=== PATIENT | male | born 1965 | race Caucasian/White ===

== ENCOUNTER 2020-08-12 11:14 | Outpatient (REF) | payer OTHER, SELFPAY ==
[2020-08-12 14:40] LABS: Glucose Urine UA NEG (NEG); Leukocyte Esterase Urine NEG (NEG); Nitrite Urine NEG (NEG); PH 5.5 (5.0-8.0); Specific Gravity - Urine >= 1.030 (1.005-1.025); Urine Blood NEG (NEG); Urine Ketones NEG (NEG); Urine Protein NEG (NEG-TRACE)
[2020-08-12 14:51] LABS: Appearance Urine HAZY; Color Urine YELLOW
[2020-08-12 14:54] LABS: Alanine Aminotransferase 31 U/L (0-40); Albumin Level 4.5 g/dL (3.5-5.0); Alkaline Phosphatase 79 U/L (39-117); Anion Gap 15 (12-20); Aspartate Amino Transferase 26 U/L (5-37); Bilirubin Total 0.5 mg/dL (0.0-1.0); Blood Urea Nitrogen 15 mg/dL (9-16); Calcium 9.1 mg/dL (8.4-10.2); Carbon Dioxide 27 mmol/L (22-29); Chloride 99 mmol/L (96-108); Estimated Glomerular Filt Rate > 60; Glucose Random 91 mg/dL (60-115); Potassium 4.7 mmol/l (3.3-5.1); Sodium 136 mmol/L (135-145)
[2020-08-12 15:01] LABS: Prostate Specific Antigen Scr 0.39 ng/mL (<0.05-4.0)
== END 2020-08-12 11:15 | disposition home or self-care (01) ==
LOC: HO.10HDL 11:14
PROVIDERS: Visit Provider Internal Medicine
DX: K21.9 Gastro-esophageal reflux disease without esophagitis (principal); E78.00 Pure hypercholesterolemia, unspecified; R35.1 Nocturia
CPT/HCPCS: 80053; 81003; 84153

== ENCOUNTER 2021-01-11 08:12 | Outpatient (REF) | payer OTHER, SELFPAY ==
[2021-01-11 11:12] LABS: Cholesterol 336 mg/dL; HDL Cholesterol 41 mg/dL; LDL Cholesterol Calculated 224 mg/dl; Triglycerides 357 mg/dL
== END 2021-01-11 08:13 | disposition home or self-care (01) ==
LOC: HO.10HDL 08:12
PROVIDERS: Visit Provider Internal Medicine
DX: E78.00 Pure hypercholesterolemia, unspecified (principal)
CPT/HCPCS: 36415; 80061

== ENCOUNTER → 2021-03-08 14:44 | Outpatient (BNVA) | payer OTHER, SELFPAY | PROVIDERS: PCP Internal Medicine; Visit Provider Internal Medicine ==

== ENCOUNTER → 2021-05-11 15:08 | Outpatient (REF) | payer OTHER, SELFPAY | LOC: HO.SL 15:08 | PROVIDERS: PCP Internal Medicine; Visit Provider Internal Medicine | DX: Z13.89 Encounter for screening for other disorder (principal) ==

== ENCOUNTER → 2021-06-03 14:14 | Outpatient (REF) | payer OTHER, SELFPAY | LOC: HO.SL 14:14 | PROVIDERS: PCP Internal Medicine; Visit Provider Internal Medicine | DX: G47.33 Obstructive sleep apnea (adult) (pediatric) (principal); G47.19 Other hypersomnia; E66.01 Morbid (severe) obesity due to excess calories | CPT/HCPCS: 95806 ==

== ENCOUNTER 2021-10-18 09:39 | Outpatient (REF) | payer OTHER, SELFPAY ==
[2021-10-18 10:17] LABS: MANUAL DIFF FLAG NO
[2021-10-18 10:22] LABS: Basophils Percent Auto 0.3 % (0-2); Eosinophils Absolute Auto 0.1 X10*3/uL (0.0-0.4); Eosinophils Percent Auto 1.3 % (0-4); Hematocrit 43.6 % (42.0-52.0); Hemoglobin 14.5 g/dl (14.0-18.0); Imm Gran Abs Auto 0.04 X10*3/uL (0.00-0.03); Imm Gran Pct Auto 0.6 % (0.0-0.4); Lymphocytes Absolute Auto 1.1 X10*3/uL (1.2-4.9); Lymphocytes Percent Auto 17.1 % (20-40); Mean Corpuscular HGB Conc 33.3 g/dl (31.0-36.0); Mean Corpuscular Hemoglobin 30.7 pg (27.0-33.0); Mean Corpuscular Volume 92.4 fL (80.0-98.0); Monocytes Absolute Auto 0.6 X10*3/uL (0.1-1.2); Monocytes Percent Auto 9.4 % (2-11); Neutrophils Absolute Auto 4.5 x10*3/uL (2.0-8.3); Neutrophils Percent Auto 71.3 % (45-73); Platelet Count 276 X10*3/uL (160-400); Red Blood Count 4.72 X10*6/uL (4.60-5.80); White Blood Count 6.3 X10*3/uL (4.8-10.8)
[2021-10-18 10:35] LABS: Estimated Average Glucose 137 mg/dL; Hemoglobin A1c % 6.4 %
[2021-10-18 11:09] LABS: Alanine Aminotransferase 25 U/L (0-40); Albumin Level 4.6 g/dL (3.5-5.0); Alkaline Phosphatase 78 U/L (39-117); Anion Gap 15 (12-20); Aspartate Amino Transferase 19 U/L (5-37); Bilirubin Total 0.7 mg/dL (0.0-1.0); Blood Urea Nitrogen 15 mg/dL (9-16); Calcium 9.8 mg/dL (8.4-10.2); Carbon Dioxide 26 mmol/L (22-29); Chloride 101 mmol/L (96-108); Cholesterol 306 mg/dL; Estimated Glomerular Filt Rate > 60; Glucose Fasting 116 mg/dL (60-99); HDL Cholesterol 39 mg/dL; LDL Cholesterol Calculated 225 mg/dl; Potassium 4.6 mmol/L (3.3-5.1); Sodium 137 mmol/L (135-145); Total Protein 8.2 g/dL (6.5-8.0); Triglycerides 211 mg/dL
[2021-10-18 11:20] LABS: Prostate Specific Antigen Scr 0.41 ng/mL (<0.05-4.0)
[2021-10-18 14:27] LABS: Creatinine Urine 139.08 mg/dL; Microalbum/Creatinine Ratio Ur 23.7 ug/mg cr
== END 2021-10-18 09:40 | disposition home or self-care (01) ==
LOC: HO.10HDL 09:39
PROVIDERS: Visit Provider Internal Medicine
DX: Z00.00 Encounter for general adult medical examination without abnormal findings (principal); Z12.5 Encounter for screening for malignant neoplasm of prostate
CPT/HCPCS: 36415; 80053; 80061; 82043; 83036; 84153; 85025

== ENCOUNTER 2021-11-24 10:02 | Outpatient (REF) | payer OTHER, SELFPAY ==
--- NOTE | ~2021-11-24 | XR_ITS ---
EXAMINATION: XR HAND WRIST, RIGHT CLINICAL INFORMATION: Pain. Assess for osteoarthritis. COMPARISON: None TECHNIQUE: The right hand and wrist are imaged in 3 large [id number] images with both areas included. There is an additional navicular view of the wrist for a total of 4 views. FINDINGS: There is no fracture or dislocation or destructive process. The ulnar variance is neutral. There is no carpal joint narrowing, erosive change, or chondrocalcinosis. The MCP and interphalangeal joints are unremarkable. There is normal bony mineralization. Small benign-appearing circumscribed cyst under 3 mm is present within the fifth finger distal phalangeal tuft. XR/XR hand wrist RT IMPRESSION: No arthropathy.
== END 2021-11-24 10:03 | disposition home or self-care (01) ==
LOC: HO.XRAY 10:02
PROVIDERS: PCP Internal Medicine; Visit Provider Internal Medicine
DX: M25.531 Pain in right wrist (principal)
CPT/HCPCS: 73110; 73130

== ENCOUNTER 2021-12-30 15:07 | Outpatient (REF) | payer OTHER, SELFPAY ==
--- NOTE | ~2021-12-30 | MR_ITS ---
EXAMINATION: MR WRIST WITHOUT CONTRAST, RIGHT CLINICAL INFORMATION: Anterior wrist pain and swelling. Numbness. Evaluate for tenosynovitis versus tear. COMPARISON: Right hand and wrist radiographs dated 11/24/2021. TECHNIQUE: MRI of the wrist was performed using routine sequences on a high-field scanner. FINDINGS: TRIANGULAR FIBROCARTILAGE: Intact. INTRINSIC LIGAMENTS: There is diffuse abnormal signal and irregularity of the scapholunate ligament with mild joint space widening, consistent with a sprain/partial tear. The lunotriquetral ligament appears grossly intact. TENDONS/MEDIAN NERVE: Trace fluid within the extensor carpi radialis longus and extensor carpi radialis brevis tendon sheaths, consistent with minimal tenosynovitis. No transverse tendon tear or tendon retraction. ARTICULAR CARTILAGE/BONE: There is marrow edema within the distal aspect of the capitate and hamate without an associated fracture line. Findings could represent osseous contusions in the appropriate clinical setting. No dislocation. Grossly intact articular cartilage. JOINT FLUID/SOFT TISSUES: There is a lobulated synovial recess versus ganglion cyst volar to the radial styloid measuring up to 1.3 cm in ML dimension. There is an additional synovial recess versus ganglion cyst volar to the ulnar aspect of the triscaphe joint measuring up to 0.6 cm in ML dimension with thin distal extension measuring up to 2.3 cm in craniocaudal dimension and extending to the level of the first metacarpal base. MR/MR wrist RT wo con IMPRESSION: 1. Sprain/partial tear of the scapholunate ligament with mild joint space widening. 2. Minimal extensor carpi radialis longus and extensor carpi radialis brevis tenosynovitis. No transverse tendon tear or tendon retraction. 3. Marrow edema within the distal aspect of the capitate and hamate without an associated fracture line, likely representing osseous contusions. 4. Ganglion cyst versus synovial recess volar to the radial styloid measuring up to 1.3 cm. Additional ganglion cyst versus synovial recess extending along the volar/ulnar aspect of the triscaphe joint distally to the base of the first metacarpal and measuring up to 2.3 cm in craniocaudal dimension.
== END 2021-12-30 15:08 | disposition home or self-care (01) ==
LOC: HO.MRI 15:07
PROVIDERS: Visit Provider Internal Medicine
DX: M25.531 Pain in right wrist (principal); R20.2 Paresthesia of skin
CPT/HCPCS: 73221

== ENCOUNTER 2022-02-02 10:18 | Outpatient (REF) | payer OTHER, SELFPAY | END 2022-02-02 10:19 | disposition home or self-care (01) | LOC: HO.HOSX 10:18 | PROVIDERS: Visit Provider Orthopaedic Surgery | DX: Z13.89 Encounter for screening for other disorder (principal) ==

== ENCOUNTER 2022-03-08 09:08 | Outpatient (REF) | payer OTHER, SELFPAY | END 2022-03-08 09:09 | disposition home or self-care (01) | LOC: HO.HOSX 09:08 | PROVIDERS: Visit Provider Orthopaedic Surgery | DX: Z13.89 Encounter for screening for other disorder (principal) ==

== ENCOUNTER 2022-05-03 14:05 | Outpatient (REF) | payer OTHER, SELFPAY ==
--- NOTE | ~2022-05-03 | XR_ITS ---
EXAMINATION: XR WRIST, RIGHT CLINICAL INFORMATION: Pain COMPARISON: MRI 12/30/2021. Radiographs 11/24/2021. TECHNIQUE: 3 views of the right wrist. Additional closed hand view of both wrists. FINDINGS: No fracture or dislocation. The carpal rows are well aligned. Joint spaces are maintained. The soft tissues are unremarkable. XR/XR wrist RT w scaphoid IMPRESSION: Unremarkable appearance of the right wrist.
== END 2022-05-03 14:06 | disposition home or self-care (01) ==
LOC: HO.HOSX 14:05
PROVIDERS: Visit Provider Orthopaedic Surgery
DX: M25.531 Pain in right wrist (principal)
CPT/HCPCS: 73110

== ENCOUNTER 2022-05-10 11:01 | Outpatient (REF) | payer OTHER, SELFPAY ==
--- NOTE | ~2022-05-10 | XR_ITS ---
EXAMINATION: XR HIP, RIGHT CLINICAL INFORMATION: Right hip pain COMPARISON: None TECHNIQUE: Two views of the right hip. FINDINGS: No fracture or dislocation. The femoral head articulates appropriately with its acetabulum. Small osteophytes. The right pelvis is intact. XR/XR hip RT min 2V IMPRESSION: Mild degenerative changes of the right hip.
== END 2022-05-10 11:02 | disposition home or self-care (01) ==
LOC: HO.XRAY 11:01
PROVIDERS: PCP Internal Medicine; Visit Provider Internal Medicine
DX: M25.551 Pain in right hip (principal)
CPT/HCPCS: 73502

== ENCOUNTER 2022-08-18 16:05 | Outpatient (REF) | payer OTHER, SELFPAY ==
[2022-08-18 16:28] LABS: MANUAL DIFF FLAG NO
[2022-08-18 17:05] LABS: Basophils Percent Auto 0.4 % (0-2); Eosinophils Absolute Auto 0.2 X10*3/uL (0.0-0.4); Hematocrit 45.1 % (42.0-52.0); Hemoglobin 15.3 g/dl (14.0-18.0); Imm Gran Abs Auto 0.04 X10*3/uL (0.00-0.03); Imm Gran Pct Auto 0.5 % (0.0-0.4); Lymphocytes Absolute Auto 1.3 X10*3/uL (1.2-4.9); Lymphocytes Percent Auto 17.5 % (20-40); Mean Corpuscular HGB Conc 33.9 g/dl (31.0-36.0); Mean Corpuscular Hemoglobin 30.4 pg (27.0-33.0); Mean Corpuscular Volume 89.7 fL (80.0-98.0); Mean Platelet Volume 9.3 fL (9.4-12.4); Monocytes Absolute Auto 0.8 X10*3/uL (0.1-1.2); Monocytes Percent Auto 10.2 % (2-11); Neutrophils Absolute Auto 5.1 x10*3/uL (2.0-8.3); Neutrophils Percent Auto 69.4 % (45-73); Platelet Count 335 X10*3/uL (160-400); Red Blood Count 5.03 X10*6/uL (4.60-5.80); Red Cell Distribution Width 13.6 % (11.0-16.0); White Blood Count 7.4 X10*3/uL (4.8-10.8)
[2022-08-18 18:01] LABS: Alanine Aminotransferase 23 U/L (0-40); Albumin Level 4.6 g/dL (3.5-5.0); Alkaline Phosphatase 82 U/L (39-117); Amylase 54 U/L (28-100); Anion Gap 13 (12-20); Aspartate Amino Transferase 20 U/L (5-37); Bilirubin Total 0.5 mg/dL (0.0-1.0); Blood Urea Nitrogen 18 mg/dL (9-16); C Reactive Protein 0.44 mg/dL (< or = 0.50); Calcium 9.9 mg/dL (8.4-10.2); Carbon Dioxide 25 mmol/L (22-29); Chloride 104 mmol/L (96-108); Cholesterol 301 mg/dL; Estimated Glomerular Filt Rate > 60; Glucose Random 96 mg/dL (60-115); Lipase 44 U/L (8-78); Potassium 4.4 mmol/L (3.3-5.1); Sodium 138 mmol/L (135-145)
[2022-08-18 18:16] LABS: Erythrocyte Sedimentation Rate 19 MM/HR (0-15)
== END 2022-08-18 16:06 | disposition home or self-care (01) ==
LOC: HO.LAB 16:05
PROVIDERS: PCP Internal Medicine; Visit Provider Internal Medicine
DX: R10.9 Unspecified abdominal pain (principal); R19.4 Change in bowel habit; Z85.9 Personal history of malignant neoplasm, unspecified
CPT/HCPCS: 36415; 80053; 82150; 82465; 83690; 85025; 85652; 86140

== ENCOUNTER 2022-11-08 09:38 | Emergency (ER) | payer OTHER, SELFPAY ==
--- NOTE | ~2022-11-08 | CT_ITS ---
EXAMINATION: CT CHEST WITH IV CONTRAST CT ABDOMEN AND PELVIS WITH IV CONTRAST CLINICAL INFORMATION: History of cancer. Mass in chest. COMPARISON: CT images of the neck from 11/08/2022. TECHNIQUE: Multidetector CT imaging examination of the chest, abdomen and pelvis was performed with intravenous administration of 100 mL Omnipaque 350. Axial images are displayed at 0.625 mm and 5 mm slice thickness. Coronal and sagittal reformatted images were generated at the technologist's workstation and submitted for review. This CT examination was performed using dose optimization techniques as appropriate, variously including the following: *Automated exposure control *Adjustment of mA and/or kV according to patient size (this includes techniques or standardized protocols for targeted exams where dose is matched to indication/reason for exam; i.e. extremities or head) *Use of iterative reconstruction technique DLP: 3061 mGy-cm (for CT exams of the neck, chest, abdomen and pelvis) FINDINGS: CHEST - LUNGS AND PLEURA: Several scattered peripheral linear opacities of atelectasis in each lung. No airspace disease or pleural effusion. No lung mass or suspicious lung nodule. MEDIASTINUM/LOWER NECK: A large mediastinal mass and/or confluent lymphadenopathy within the mediastinum occupies the right paratracheal area and exerts significant mass effect upon the superior vena cava which is invaded by tumor; however, contrast does opacify some of the lumen of the SVC; there is no complete occlusion. The mass also infiltrates around and compresses the left brachiocephalic vein near its confluence with the SVC. The mass, which displaces the trachea to the left of midline, measures up to 7 cm transverse and approximately 9 cm AP at the level of the aortic arch. There is also lobulated infiltrative tumor or lymphadenopathy occupying the region of the aortopulmonary window and projecting lateral to the pulmonary artery trunk. The esophagus and visualized portion of the thyroid gland are unremarkable. CARDIOVASCULAR: The heart size is normal. Three-vessel coronary artery atherosclerotic calcification, status post coronary artery bypass graft surgery. Pulmonary arteries are normal in caliber. No evidence of central pulmonary embolism. Thoracic aorta is 4 cm AP diameter at the level the right pulmonary artery. LYMPHATICS: No axillary or internal mammary lymphadenopathy. At the thoracic inlet, a large right paratracheal lymph node is 2 cm in short axis dimension. Also, a few mildly enlarged lymph nodes are detected in the right lower neck. A prominent right hilar lymph node is 1.3 cm in short axis dimension. No pathologic sized left hilar lymph nodes. CHEST WALL/BONES OF THORAX: No chest wall mass. Sternotomy is healed. Mild osteoarthritis of the right glenohumeral joint with osteochondral body in the subscapularis recess of the joint. Mild and moderate multilevel discovertebral degenerative change of the thoracic spine. No suspicious osseous lesion within the thorax. ABDOMEN AND PELVIS - HEPATOBILIARY: Liver has normal size and contour. Mild focal steatosis is present in hepatic segment 4 adjacent to the falciform ligament. No evidence of liver metastasis. Gallbladder is unremarkable. No dilated bile ducts. PANCREAS: Pancreas is mildly atrophied and otherwise unremarkable. SPLEEN: Normal. ADRENAL GLANDS: Normal. KIDNEYS AND URETERS: Kidneys are normal in size and attenuation. No renal mass. No nephrolithiasis, hydronephrosis or perinephric fluid collection. BOWEL AND PERITONEUM: No dilated loops of bowel. The appendix is normal. No overt bowel wall thickening. No mesenteric fat stranding, ascites or pneumoperitoneum. Diverticula of the colon without evidence of diverticulitis. ABDOMINAL WALL: A fat-containing midline abdominal wall hernia is observed just superior to the umbilicus. The hernia sac measures 3.8 cm transverse. A fat-containing left inguinal hernia is present. There is minimal protrusion of fat into the proximal right inguinal canal. VESSELS: Atherosclerosis of the abdominal aorta without aneurysm. LYMPH NODES: No pathologic sized lymph nodes in the abdomen or pelvis. No inguinal lymphadenopathy. BLADDER AND PELVIC VISCERA: Urinary bladder is normal. Prostate gland is unremarkable. No pelvic free fluid. OTHER MUSCULOSKELETAL: Scattered opacities in subcutaneous tissues of the gluteal regions could represent injection granulomas. Mild osteoarthritis of the hips. Multilevel disc degenerative change and facet arthropathy of the lumbar spine. The mild lucency and sclerosis at the superior plate of L2 appear to be related to disc degenerative change. CT/CT abdomen pelvis w IV con IMPRESSION: * Large mass or confluent lymphadenopathy occupies the right paratracheal area of the mediastinum and displaces the trachea to the left of midline. The mass invades and compresses the SVC. * There is lymphadenopathy in the right lower neck and right hilum. Also, there is infiltration of tumor or lymphadenopathy in the region of the aortopulmonary window and projecting lateral to the pulmonary artery trunk. * No evidence of metastatic disease in the abdomen or pelvis. * Atherosclerotic disease of coronary arteries, status post coronary artery bypass graft surgery.
--- NOTE | ~2022-11-08 | XR_ITS ---
EXAMINATION: XR CHEST CLINICAL INFORMATION: Syncope with head injury COMPARISON: Chest radiograph 12/29/2021 TECHNIQUE: 2 views of the chest were obtained. FINDINGS: A superior/anterior mediastinal mass is seen in the right paratracheal region with mild displacement of the trachea to the left. Mild elevation of the right hemidiaphragm which does not appear changed from prior. The lungs are otherwise clear. Note is made of sclerosis in the coracoid process of the right scapula. This was not present previously. Median sternotomy wires are demonstrated. The heart is not enlarged. XR/XR chest 2V IMPRESSION: Right paratracheal/superior mediastinal mass concerning for neoplasm. Sclerotic right coracoid which could reflect metastatic disease Consider CT of the neck and chest for further evaluation with IV contrast. This critical result was discussed with Sandra Luo by telephone at 11:54 AM on 11/08/2022 and it was ascertained that the content and urgency of the report was understood at the time of direct communication.
--- NOTE | ~2022-11-08 | CT_ITS ---
EXAMINATION: CT SOFT TISSUE NECK WITH CONTRAST CLINICAL INFORMATION: Abnormal mass in the chest. COMPARISON: Cervical spine CT 11/08/2022. TECHNIQUE: Following the intravenous administration of 100 mL of Omnipaque 350 intravenous contrast, helical imaging was performed in the axial plane with generation of coronal and sagittal reformatted images. This CT examination was performed using dose optimization techniques as appropriate, variously including the following: *Automated exposure control *Adjustment of mA and/or kV according to patient size (this includes techniques or standardized protocols for targeted exams where dose is matched to indication/reason for exam; i.e. extremities or head) *Use of iterative reconstruction technique FINDINGS: Partially imaged large mediastinal mass which is fully described on the corresponding CT of the chest. A portion of the superior vena cava and a portion of the left brachiocephalic vein are nearly completely occluded by and likely invaded by tumor. Please see the chest CT report for further details. There is an enlarged separate pathologic appearing enlarged lymph node within the right tracheoesophageal groove just above the thoracic inlet and just above the mediastinal mass measuring 2.7 cm x 2 cm in size on image 82 of series 7. There is metastatic lymphadenopathy at the junction of level IV and level VB of the right infrahyoid neck located just anterior to the right anterior scalene muscle with the largest lymph node in this area measuring up to 1.9 cm in long transaxial dimension on image 71 of series 7. No additional cervical lymphadenopathy. Orbital soft tissues, parotid glands, submandibular glands, and thyroid gland are unremarkable. Multiple surgical clips within the imaged mediastinum as well as median sternotomy wires. Partially imaged right frontal scalp swelling. There is multilevel cervical spondylosis. No suspicious intraosseous lesions are identified. Partially imaged intracranial compartment is unremarkable. CT/CT soft tissue neck w IV con IMPRESSION: - Partially imaged large mediastinal mass which is fully described on the corresponding CT of the chest. A portion of the superior vena cava and a portion of the left brachiocephalic vein are nearly completely occluded by and likely invaded by tumor. Please see the chest CT report for further details. - There is a separate pathologically enlarged lymph node within the right tracheoesophageal groove just above the thoracic inlet and just above the mediastinal mass measuring 2.7 cm x 2 cm in size on image 82 of series 7. There is also metastatic lymphadenopathy at the junction of level IV and level VB of the right infrahyoid neck located just anterior to the right anterior scalene muscle with the largest lymph node in this area measuring up to 1.9 cm in long transaxial dimension on image 71 of series 7.
--- NOTE | ~2022-11-08 | CT_ITS ---
EXAMINATION: CT HEAD W/O IV CONTRAST CT CERVICAL SPINE W/O IV CONTRAST CLINICAL INFORMATION: Syncope, injury. COMPARISON: None TECHNIQUE: Head - Contiguous axial imaging of the head was performed from the skull base to the vertex without the administration of intravenous contrast, and axial images are reconstructed at 2 mm and 5 mm slice thickness. Cervical spine - A volumetric, helical CT acquisition of the cervical spine was obtained without contrast; in addition to the standard set of axial images, multiplanar reformatted images were provided in the coronal and sagittal imaging planes. This CT examination was performed using dose optimization techniques as appropriate, variously including the following: *Automated exposure control *Adjustment of mA and/or kV according to patient size (this includes techniques or standardized protocols for targeted exams where dose is matched to indication/reason for exam; i.e. extremities or head) *Use of iterative reconstruction technique DLP: 1539 mGy-cm (total) FINDINGS: HEAD: No acute intracranial findings. Sanchez to white matter differentiation is preserved. No evidence of intracranial hemorrhage, major vascular territory infarction, focal mass effect or midline shift. There is atherosclerotic calcification of cavernous carotid arteries. The ventricles have normal size and configuration. No hydrocephalus or extra-axial fluid collections. The calvarium is intact. The mastoid air cells are well aerated. Mild mucosal thickening of maxillary sinuses without air-fluid levels. Mucous retention cysts of each inferior maxillary sinus. The orbits and temporomandibular joints are unremarkable. The mild soft tissue swelling of the right frontal scalp could be secondary to recent trauma. CERVICAL SPINE: The cervical spine has normal curvature. The craniocervical junction is normal. The occipital condyles, dens and atlantodental articulation are intact. The vertebral body heights and alignment are maintained. No fractures in the anterior or posterior elements. No prevertebral soft tissue edema. Mild multilevel discovertebral degenerative change of the cervical spine. Moderate multilevel facet osteoarthritis. The facet arthropathy and uncovertebral joint hypertrophy cause severe left-sided neural foraminal stenosis at C2-C3. Mild bilateral neural foraminal stenosis is present at C5-C6. No evidence of spinal canal stenosis. No hematoma in the visualized neck. Thyroid gland is normal. A large lymph node of the superior mediastinum partially included in the [id number] measures 2 cm in short axis dimension. CT/CT cervical spine wo IV con IMPRESSION: * No acute intracranial pathology. * No fracture or malalignment in the degenerated cervical spine. * The mild right frontal scalp soft tissue swelling could be secondary to recent trauma. No calvarial fracture. * Large lymph node of the superior mediastinum is partially included in the [id number]. Recommend follow-up chest CT to evaluate the full extent of lymphadenopathy.
--- NOTE | ~2022-11-08 | CT_ITS ---
EXAMINATION: CT HEAD W/O IV CONTRAST CT CERVICAL SPINE W/O IV CONTRAST CLINICAL INFORMATION: Syncope, injury. COMPARISON: None TECHNIQUE: Head - Contiguous axial imaging of the head was performed from the skull base to the vertex without the administration of intravenous contrast, and axial images are reconstructed at 2 mm and 5 mm slice thickness. Cervical spine - A volumetric, helical CT acquisition of the cervical spine was obtained without contrast; in addition to the standard set of axial images, multiplanar reformatted images were provided in the coronal and sagittal imaging planes. This CT examination was performed using dose optimization techniques as appropriate, variously including the following: *Automated exposure control *Adjustment of mA and/or kV according to patient size (this includes techniques or standardized protocols for targeted exams where dose is matched to indication/reason for exam; i.e. extremities or head) *Use of iterative reconstruction technique DLP: 1539 mGy-cm (total) FINDINGS: HEAD: No acute intracranial findings. Sanchez to white matter differentiation is preserved. No evidence of intracranial hemorrhage, major vascular territory infarction, focal mass effect or midline shift. There is atherosclerotic calcification of cavernous carotid arteries. The ventricles have normal size and configuration. No hydrocephalus or extra-axial fluid collections. The calvarium is intact. The mastoid air cells are well aerated. Mild mucosal thickening of maxillary sinuses without air-fluid levels. Mucous retention cysts of each inferior maxillary sinus. The orbits and temporomandibular joints are unremarkable. The mild soft tissue swelling of the right frontal scalp could be secondary to recent trauma. CERVICAL SPINE: The cervical spine has normal curvature. The craniocervical junction is normal. The occipital condyles, dens and atlantodental articulation are intact. The vertebral body heights and alignment are maintained. No fractures in the anterior or posterior elements. No prevertebral soft tissue edema. Mild multilevel discovertebral degenerative change of the cervical spine. Moderate multilevel facet osteoarthritis. The facet arthropathy and uncovertebral joint hypertrophy cause severe left-sided neural foraminal stenosis at C2-C3. Mild bilateral neural foraminal stenosis is present at C5-C6. No evidence of spinal canal stenosis. No hematoma in the visualized neck. Thyroid gland is normal. A large lymph node of the superior mediastinum partially included in the acgwo-[id number] measures 2 cm in short axis dimension. CT/CT head/brain wo IV con IMPRESSION: * No acute intracranial pathology. * No fracture or malalignment in the degenerated cervical spine. * The mild right frontal scalp soft tissue swelling could be secondary to recent trauma. No calvarial fracture. * Large lymph node of the superior mediastinum is partially included in the [id number]. Recommend follow-up chest CT to evaluate the full extent of lymphadenopathy.
[2022-11-08 09:42] VITALS: BP 145/82; PULSE 71; RESP 18; TEMP 36.5; O2SAT 99; BMI 39.2
[2022-11-08] MEDS: Lidocaine HCl 1 % MPF 5 ML VIAL SUBCUT (10:18)
--- NOTE | 2022-11-08 10:22 | ECG_ITS ---
Test Reason : syncope Blood Pressure : / mmHG Vent. Rate : 064 BPM Atrial Rate : 064 BPM P-R Int : 164 ms QRS Dur : 100 ms QT Int : 396 ms P-R-T Axes : 017 012 031 degrees QTc Int : 408 ms Normal sinus rhythm Normal ECG When compared with ECG of 26-JAN-2005 13:02, No significant change was found Referred By: Sandra Luo Electronically Signed By:LAWRENCE HOWARD MD
[2022-11-08 10:31] LABS: MANUAL DIFF FLAG NO
[2022-11-08 10:39] LABS: Basophils Percent Auto 0.4 % (0-2); Eosinophils Absolute Auto 0.1 X10*3/uL (0.0-0.4); Eosinophils Percent Auto 1.4 % (0-4); Hematocrit 43.7 % (42.0-52.0); Hemoglobin 14.8 g/dl (14.0-18.0); Imm Gran Abs Auto 0.03 X10*3/uL (0.00-0.03); Imm Gran Pct Auto 0.4 % (0.0-0.4); Lymphocytes Percent Auto 13.6 % (20-40); Mean Corpuscular HGB Conc 33.9 g/dl (31.0-36.0); Mean Corpuscular Volume 91.4 fL (80.0-98.0); Mean Platelet Volume 9.2 fL (9.4-12.4); Monocytes Absolute Auto 0.5 X10*3/uL (0.1-1.2); Neutrophils Absolute Auto 5.7 x10*3/uL (2.0-8.3); Neutrophils Percent Auto 77.2 % (45-73); Platelet Count 349 X10*3/uL (160-400); Red Blood Count 4.78 X10*6/uL (4.60-5.80); Red Cell Distribution Width 13.4 % (11.0-16.0); White Blood Count 7.4 X10*3/uL (4.8-10.8)
[2022-11-08 10:49] LABS: INTERNATIONAL NORM RATIO 1.1 (0.9-1.1); Prothrombin Time 12.4 SEC (10.0-13.1)
[2022-11-08 10:56] LABS: Alanine Aminotransferase 22 U/L (0-40); Albumin Level 4.4 g/dL (3.5-5.0); Alkaline Phosphatase 82 U/L (39-117); Anion Gap 14 (12-20); Aspartate Amino Transferase 19 U/L (5-37); Bilirubin Total 0.9 mg/dL (0.0-1.0); Blood Urea Nitrogen 12 mg/dL (9-16); Calcium 9.7 mg/dL (8.4-10.2); Carbon Dioxide 27 mmol/L (22-29); Chloride 102 mmol/L (96-108); Estimated Glomerular Filt Rate > 60; Glucose Random 121 mg/dL (60-115); Magnesium 1.9 mg/dL (1.6-2.6); Potassium 4.6 mmol/L (3.3-5.1); Sodium 138 mmol/L (135-145); Total Protein 7.6 g/dL (6.5-8.0)
[2022-11-08 11:03] LABS: Troponin-I High Sensitivity < 3.5 ng/L (<3.5-35.0)
[2022-11-08] MEDS: Diphth,Pertus(ACell),Tet Adult 0.5 ML SYRINGE IM (11:13)
[2022-11-08 11:16] VITALS: BP 120/81; PULSE 62
[2022-11-08 11:18] VITALS: BP 124/87; PULSE 63
[2022-11-08 11:20] VITALS: BP 128/94; PULSE 73
--- NOTE | 2022-11-08 11:29 | ED.WOUNDLAC ---
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 He reports that he was straining and felt lightheaded while he was straining and began to feel nauseated then all of a sudden he syncopized and woke up shortly after. He reports he believes he hit his head on 1 of the screws from the shower. He is unsure how long he was out for. He reports he has been having some lightheadedness for the past week. Worse when he changes position. He reports he believes he is dehydrated due to he has been having some nausea, decreased p.o. intake and some diarrhea over the past week. He denies being on any blood thinners or passing all in the past, any dizziness or headache at this time, change in vision, nausea/vomiting at this time, chest pain or shortness of breath, palpitations, paresthesias, focal weakness, general weakness, abdominal pain, back pain, flank pain, dysuria, hematuria, abnormal penile discharge, black or bloody stools, lower extremity edema or calf tenderness, recent travel or sick contacts or any other symptoms complaints or concerns at this time. Onset (ago): day(s) (This occurred last night) Location: face Place: home Patient tetanus UTD: No Context: fall (He syncopized) Associated symptoms: other (He has some lightheadedness/nausea while he was straining to have a bowel movement) Treatments prior to arrival: other (None) Related Data Home Medications Medication Instructions Recorded Confirmed No Known Home Meds 05/03/22 05/03/22 Allergies Allergy/AdvReac Type Severity Reaction Status Date / Time No Known Allergies Allergy Verified 05/03/22 14:42 Review of Systems Review of Systems: Constitutional : No Fever, No Chills, No Night Sweats, No Fatigue, No Malaise ENT/Mouth : No Ear Pain, No Nasal Congestion, No Sinus Pain, No sore throat, No Rhinorrhea Eyes: No Eye Pain, No Swelling, No Redness, No Foreign Body, No Discharge, No Vision Changes Cardiovascular : No Chest Pain, No SOB, No Dyspnea on Exertion, No Orthopnea, No Palpitations Respiratory : No Cough, No Sputum, No Wheezing, No Dyspnea Gastrointestinal : + resolved nausea, No Vomiting, + Diarrhea, No Constipation, No abdominal Pain, No Hematochezia, No Melena Genitourinary : No Dysuria, No Urinary Frequency, No Urinary Incontinence, No Urgency, No Flank Pain Musculoskeletal : No joint pain, No Myalgias Skin : + right forehead laceration Neuro : + resolve lightheadedness, No Focal weakness, no general weakness, No Numbness, No Paresthesias, No Loss of Consciousness, No Dizziness, No Headache Yes all other systems are reviewed and are negative [facility] Past Medical History Attestation statement: The following information was validated with the patient. Source: old records reviewed, obtained from family and nursing notes reviewed Medical History Cancer Excessive daytime sleepiness Morbidly obese Obesity (BMI 30-39.9) MARIKA (obstructive sleep apnea) Social History Social History Alcohol intake: never Patient Tobacco Use Status: Never used Tobacco Smoked in Last 30 Days: No Use of substances other than those prescribed or required for medical reasons: No Advance Directives: Yes Advance Directives on File: No Physical Exam Vital Signs: Vital Signs: Last Vital Signs Temp 97.7 F 11/08/22 09:42 Pulse 73 11/08/22 11:20 Resp 18 11/08/22 09:42 BP 128/94 H 11/08/22 11:20 Pulse Ox 99 11/08/22 09:42 O2 Del Method 11/08/22 09:42 BMI result Body Mass Index 39.2 Vital signs have been reviewed as normal and appeared to be correct. Blood pressure normal. Heart rate normal. Respiration rate normal. Temperature normal. Oxygen saturation normal. Appearance: Alert. Oriented X3. No acute distress. Head: Forehead laceration otherwise the rest of the external exam is normal. Normocephalic. Atraumatic. Able to rotate head bilaterally. Eyes: PERRLA. EOMI. No nystagmus noted. Conjunctiva and sclera normal. Eyelids normal. Corneal reflex normal. ENT: EAC normal. TM's Normal. Hearing normal. Pharynx normal. Uvula midline. tongue midline. Moist mucous membranes. No trismus noted. No drooling noted. No muffled voice noted. No nystagmus noted. Neck: Normal inspection. Neck supple. FROM. No adenopathy. Trachea midline. Thyroid Normal. No meningeal signs. No neck mass noted. CVS: Normal heart rate and rhythm. Heart sound normal. No murmurs noted. Pulses normal throughout. Respiratory: No respiratory distress. Painless inspiration. Breath sounds normal. No wheezes/rales/rhonchi noted. Chest nontender. No accessory muscle usage noted or decreased air movement noted. Abdomen: Soft and nontender. Bowel sounds normal in all 4 quadrants. No distention noted. No organomegaly noted. No visible injury noted. Back: No CVA tenderness. Full range of motion noted. Skin: Skin warm and dry. Normal skin color. Normal skin turgor. To right side of forehead at the bridge of the nose patient has a 3 cm linear intermediate laceration. No foreign bodies or bony tenderness noted. No active bleeding noted. No additional rashes/lesions/lacerations noted. Extremities: No lower extremity edema. Extremities exhibit normal range of motion. Extremities nontender. Able to shrug shoulders bilaterally and keep up against resistance. Neuro: Oriented X 3. No motor deficit. No sensory deficit. Reflexes normal. Moving all extremities. No focal motor deficits. Cranial nerves II-XI intact bilaterally. Facial strength normal. Normal cognition. Speech normal. Gait normal. Strength 5/5 throughout. No pronator drift. No tremor noted. No fasciculations noted. No rigidity noted. Muscle tone normal throughout. No asterixis noted. [id number] test normal. Heel to wahl test normal. Tandem gait normal. Does not sway with eyes open. Romberg test negative. Rapid alternating movement upper extremity normal. Rapid alternating movement lower extremity normal. Hand drop from overhead Misses face. NIHSS score 0. 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 He reports that he was straining and felt lightheaded while he was straining and began to feel nauseated then all of a sudden he syncopized and woke up shortly after. He reports he believes he hit his head on 1 of the screws from the shower. He is unsure how long he was out for. He reports he has been having some lightheadedness for the past week. Worse when he changes position. He reports he believes he is dehydrated due to he has been having some nausea, decreased p.o. intake and some diarrhea over the past week. This patient presents with symptoms consistent with vasovagal syncope most likely due to the straining while he was trying to have a bowel movement/diarrhea. Although differential diagnosis could be orthostatic syncope given recent P old decreased intake and diarrhea over the past week. No evidence of acute life-threatening hemorrhage. Presentation not consistent with seizures, there is no postictal state, no seizure activity. Low suspicion for acute neurological catastrophes to include ICH, bleeding diathesis. Low suspicion for vascular catastrophe to include PE, thoracic aortic dissection, AAA rupture. Presentation not consistent with acute life-threatening arrhythmia, structural heart disease, electrical conduction abnormalities, or ACS. Heart score 1. However given age, history and physical will workup. I did offer admission although patient is refusing at this time reports he will not be admitted because he believes it was a vasovagal syncope although is agreeable to some basic labs and imaging. Plan: Will obtain labs, EKG, orthostatic vitals, CT scan of brain/cervical spine, chest x-ray. Provide treatment with tetanus vaccine. Reevaluation(s) Reevaluation #1: Patient now status post laceration repair. Patient tolerated procedure well. Six interrupted sutures were placed. Tetanus was updated. Labs reviewed and all labs are within normal limits. Imaging CT scan of brain/cervical spine negative for intracranial pathology or fractures of the cervical spine only noted to have some scalp soft tissue swelling right-sided which is consistent with his laceration. Although the radiologist did call me and reported that the patient has a large lymph nodes of the superior mediastinal Chest x-ray revealed right paratracheal superior mediastinal mass concerning for neoplasm and sclerotic right cry cord which could represent metastatic disease therefore he recommended a CT scan of soft tissue neck with IV contrast and a CT scan of chest with IV contrast not PE study. Therefore I also added a CT scan of abdomen pelvis with IV contrast. Therefore I obtained the records from [facility] as patient reports that he did have a mediastinal mass removed and was having CT scans every 3 months which just seen by his provider at [facility] and had a CT scan on 09/06/2022 which revealed an unchanged right paratracheal mass measuring 6.5 x 6.7 x 7.8 cm which was unchanged and stable. We compared the CT scan of the soft tissue neck and CT scan of chest and abdomen pelvis with IV contrast that we obtained here and it appears that the size of the mass is unchanged although it does revealed Large mass or confluent lymphadenopathy occupies the right paratracheal area of the mediastinum and displaces the trachea to the left of midline. The mass invades and compresses the SVC.? There is lymphadenopathy in the right lower neck and right hilum. Also, there is infiltration of tumor or lymphadenopathy in the region of the aortopulmonary window and projecting lateral to the pulmonary artery trunk. No evidence of metastatic disease in the abdomen or pelvis. Atherosclerotic disease of coronary arteries, status post coronary artery bypass graft surgery. Therefore I discussed this case with Dr. Azevedo he came and evaluated the patient himself to rule out superior vena cava syndrome. Patient had a negative [place]'s sign. We believe that this is an incidental finding and that he actually vasovagal old due to straining while having a bowel movement this morning and patient is agreeable to this due to this is what he reports. Therefore we printed out the results from the scan today and handed to the patient along with the CD and recommended the patient calling his provider at [facility] today to make a follow-up appointment this week for further evaluation treatment regarding his mass invading and compressing the SVC. Again patient does not appear to have superior vena cava compression syndrome at this time. Patient will also be instructed to return and 5 days for suture removal. Patient understands the plan to follow-up with his primary care provider/[facility] provider and to return in 5 days for suture removal. at bedside also understands and is agreeable to this plan. Time: 15:18 Medications Administered Discontinued Medications Generic Name Dose Route Start Last Admin Trade Name Freq PRN Reason Stop Dose Admin Diphtheria/Tetanus/Acell Pertussis 0.5 ml 11/08/22 10:23 11/08/22 11:13 Diphth,Pertus(Acell),Tet Adult 0.5 Ml Syringe IM 11/08/22 10:24 0.5 ml .ONCE ONE Administration Iohexol 100 ml 11/08/22 12:48 11/08/22 12:50 Iohexol 350 Mg/Ml 100 Ml Infus..Btl IV 11/08/22 12:49 100 ml ONCE ONE Administration Lidocaine HCl 5 ml 11/08/22 10:06 11/08/22 10:18 Lidocaine Hcl 1 % Mpf 5 Ml Vial SUBCUT 11/08/22 10:07 5 ml ONCE ONE Administration Medical Decision Making Admission/Observation Consideration of admission/observation: Escalation of care including admission/observation considered (I considered admission observation although patient is refusing reports he would like to go home. at bedside agreeable with his plan.) Lab Data MDM Lab Attestation statement: I reviewed the patient's lab results. 11/08/22 10:26 11/08/22 10:26 Labs: Lab Results 11/08/22 11/08/22 11/08/22 Range/Units 10:26 10:26 10:26 WBC 7.4 (4.8-10.8) X10*3/uL RBC 4.78 (4.60-5.80) X10*6/uL Hgb 14.8 (14.0-18.0) g/dl Hct 43.7 (42.0-52.0) % MCV 91.4 (80.0-98.0) fL MCH 31.0 (27.0-33.0) pg MCHC 33.9 (31.0-36.0) g/dl RDW 13.4 (11.0-16.0) % Plt Count 349 (160-400) X10*3/uL MPV 9.2 L (9.4-12.4) fL Immature Gran % (Auto) 0.4 (0.0-0.4) % Neut % (Auto) 77.2 H (45-73) % Lymph % (Auto) 13.6 L (20-40) % [place] % (Auto) 7.0 (2-11) % Eos % (Auto) 1.4 (0-4) % Baso % (Auto) 0.4 (0-2) % Lymph # (Auto) 1.0 L (1.2-4.9) X10*3/uL [place] # (Auto) 0.5 (0.1-1.2) X10*3/uL Eos # (Auto) 0.1 (0.0-0.4) X10*3/uL Baso # (Auto) 0.0 (0.0-0.2) X10*3/uL Abs Immat Gran (auto) 0.03 (0.00-0.03) X10*3/uL Absolute Neuts (auto) 5.7 (2.0-8.3) x10*3/uL Absolute Nucleated RBC 0.000 (0.0-0.012) X10*3/uL Nucleated RBC % (auto) 0.0 (0.0-0.2) /100WBC PT 12.4 (10.0-13.1) SEC INR 1.1 (0.9-1.1) Sodium 138 (135-145) mmol/L Potassium 4.6 (3.3-5.1) mmol/L Chloride 102 (96-108) mmol/L Carbon Dioxide 27 (22-29) mmol/L Anion Gap 14 (12-20) BUN 12 (9-16) mg/dL Creatinine 0.83 (0.5-1.4) mg/dL Estim Creat Clear Calc 145.0 Estimated GFR > 60 Random Glucose 121 H (60-115) mg/dL Calcium 9.7 (8.4-10.2) mg/dL Magnesium 1.9 (1.6-2.6) mg/dL Total Bilirubin 0.9 (0.0-1.0) mg/dL AST 19 (5-37) U/L ALT 22 (0-40) U/L Alkaline Phosphatase 82 (39-117) U/L Total Creatine Kinase 110 (38-174) U/L Troponin I High Sens (<3.5-35.0) ng/L Total Protein 7.6 (6.5-8.0) g/dL Albumin 4.4 (3.5-5.0) g/dL 11/08/22 Range/Units 10:26 WBC (4.8-10.8) X10*3/uL RBC (4.60-5.80) X10*6/uL Hgb (14.0-18.0) g/dl Hct (42.0-52.0) % MCV (80.0-98.0) fL MCH (27.0-33.0) pg MCHC (31.0-36.0) g/dl RDW (11.0-16.0) % Plt Count (160-400) X10*3/uL MPV (9.4-12.4) fL Immature Gran % (Auto) (0.0-0.4) % Neut % (Auto) (45-73) % Lymph % (Auto) (20-40) % [place] % (Auto) (2-11) % Eos % (Auto) (0-4) % Baso % (Auto) (0-2) % Lymph # (Auto) (1.2-4.9) X10*3/uL [place] # (Auto) (0.1-1.2) X10*3/uL Eos # (Auto) (0.0-0.4) X10*3/uL Baso # (Auto) (0.0-0.2) X10*3/uL Abs Immat Gran (auto) (0.00-0.03) X10*3/uL Absolute Neuts (auto) (2.0-8.3) x10*3/uL Absolute Nucleated RBC (0.0-0.012) X10*3/uL Nucleated RBC % (auto) (0.0-0.2) /100WBC PT (10.0-13.1) SEC INR (0.9-1.1) Sodium (135-145) mmol/L Potassium (3.3-5.1) mmol/L Chloride (96-108) mmol/L Carbon Dioxide (22-29) mmol/L Anion Gap (12-20) BUN (9-16) mg/dL Creatinine (0.5-1.4) mg/dL Estim Creat Clear Calc Estimated GFR Random Glucose (60-115) mg/dL Calcium (8.4-10.2) mg/dL Magnesium (1.6-2.6) mg/dL Total Bilirubin (0.0-1.0) mg/dL AST (5-37) U/L ALT (0-40) U/L Alkaline Phosphatase (39-117) U/L Total Creatine Kinase (38-174) U/L Troponin I High Sens < 3.5 (<3.5-35.0) ng/L Total Protein (6.5-8.0) g/dL Albumin (3.5-5.0) g/dL Independent Interpretation I performed an independent interpretation of an: EKG (Normal sinus rhythm with ventricular rate of 64 with a normal IA interval normal QRS duration normal QT/QTC interval. No acute ischemic change are noted. Similar compared to prior EKG 01/26/2005), Plain X-Ray and CT Scan Interpretation: All x-rays and CT scans printed out and given to the patient and at bedside we also discussed the case and reviewed myself and Dr. Azevedo Radiology Impression Discussion of test interpretation with radiology: I have reviewed the radiologist's reading. Radiologist Impression: FINDINGS: HEAD: No acute intracranial findings. Sanchez to white matter differentiation is preserved. No evidence of intracranial hemorrhage, major vascular territory infarction, focal mass effect or midline shift. There is atherosclerotic calcification of cavernous carotid arteries. The ventricles have normal size and configuration. No hydrocephalus or extra-axial fluid collections. The calvarium is intact. The mastoid air cells are well aerated. Mild mucosal thickening of maxillary sinuses without air-fluid levels. Mucous retention cysts of each inferior maxillary sinus. The orbits and temporomandibular joints are unremarkable. The mild soft tissue swelling of the right frontal scalp could be secondary to recent trauma. CERVICAL SPINE: The cervical spine has normal curvature. The craniocervical junction is normal. The occipital condyles, dens and atlantodental articulation are intact. The vertebral body heights and alignment are maintained.? No fractures in the anterior or posterior elements. No prevertebral soft tissue edema. Mild multilevel discovertebral degenerative change of the cervical spine. Moderate multilevel facet osteoarthritis.? The facet arthropathy and uncovertebral joint hypertrophy cause severe left-sided neural foraminal stenosis at C2-C3. Mild bilateral neural foraminal stenosis is present at C5-C6. No evidence of spinal canal stenosis. No hematoma in the visualized neck. Thyroid gland is normal. A large lymph node of the superior mediastinum partially included in the [id number] measures 2 cm in short axis dimension. CT/CT head/brain wo IV con IMPRESSION: *? No acute intracranial pathology. *? No fracture or malalignment in the degenerated cervical spine. *? The mild right frontal scalp soft tissue swelling could be secondary to recent trauma. No calvarial fracture. *? Large lymph node of the superior mediastinum is partially included in the [id number]. Recommend follow-up chest CT to evaluate the full extent of lymphadenopathy. XR CHEST CLINICAL INFORMATION: Syncope with head injury COMPARISON: Chest radiograph 12/29/2021 TECHNIQUE: 2 views of the chest were obtained. FINDINGS: A superior/anterior mediastinal mass is seen in the right paratracheal region with mild displacement of the trachea to the left. Mild elevation of the right hemidiaphragm which does not appear changed from prior. The lungs are otherwise clear. Note is made of sclerosis in the coracoid process of the right scapula. This was not present previously. Median sternotomy wires are demonstrated. The heart is not enlarged. XR/XR chest 2V IMPRESSION: Right paratracheal/superior mediastinal mass concerning for neoplasm. ? Sclerotic right coracoid which could reflect metastatic disease ? Consider CT of the neck and chest for further evaluation with IV contrast. ? This critical result was discussed with Sandra Luo by telephone at 11:54 AM on 11/08/2022 and it was ascertained that the content and urgency of the report was understood at the time of direct communication. [address] [address] [address] Scan Report Signed Patient: Shyam Espinosa MR#: [id number] : 1965 Acct:[id number] Age/Sex: 57 / M ADM Date: 11/08/22 Loc: HO.ED Attending Dr: Ordering Physician: Sandra Luo Date of Service: 11/08/22 Procedure(s): CT soft tissue neck w IV con Accession Number(s): [id number] cc: Sandra Luo~ EXAMINATION: CT SOFT TISSUE NECK WITH CONTRAST CLINICAL INFORMATION: Abnormal mass in the chest.? COMPARISON: Cervical spine CT 11/08/2022.? TECHNIQUE: Following the intravenous administration of 100 mL of Omnipaque 350 intravenous contrast, helical imaging was performed in the axial plane with generation of coronal and sagittal reformatted images. This CT examination was performed using dose optimization techniques as appropriate, variously including the following: *Automated exposure control *Adjustment of mA and/or kV according to patient size (this includes techniques or standardized protocols for targeted exams where dose is matched to indication/reason for exam; i.e. extremities or head) *Use of iterative reconstruction technique FINDINGS: Partially imaged large mediastinal mass which is fully described on the corresponding CT of the chest. A portion of the superior vena cava and a portion of the left brachiocephalic vein are nearly completely occluded by and likely invaded by tumor. Please see the chest CT report for further details.? There is an enlarged separate pathologic appearing enlarged lymph node within the right tracheoesophageal groove just above the thoracic inlet and just above the mediastinal mass measuring 2.7 cm x 2 cm in size on image 82 of series 7. There is metastatic lymphadenopathy at the junction of level IV and level VB of the right infrahyoid neck located just anterior to the right anterior scalene muscle with the largest lymph node in this area measuring up to 1.9 cm in long transaxial dimension on image 71 of series 7. No additional cervical lymphadenopathy. Orbital soft tissues, parotid glands, submandibular glands, and thyroid gland are unremarkable. Multiple surgical clips within the imaged mediastinum as well as median sternotomy wires. Partially imaged right frontal scalp swelling. There is multilevel cervical spondylosis. No suspicious intraosseous lesions are identified. Partially imaged intracranial compartment is unremarkable. CT/CT soft tissue neck w IV con IMPRESSION: - Partially imaged large mediastinal mass which is fully described on the corresponding CT of the chest. A portion of the superior vena cava and a portion of the left brachiocephalic vein are nearly completely occluded by and likely invaded by tumor. Please see the chest CT report for further details. ? - There is a separate pathologically enlarged lymph node within the right tracheoesophageal groove just above the thoracic inlet and just above the mediastinal mass measuring 2.7 cm x 2 cm in size on image 82 of series 7. There is also metastatic lymphadenopathy at the junction of level IV and level VB of the right infrahyoid neck located just anterior to the right anterior scalene muscle with the largest lymph node in this area measuring up to 1.9 cm in long transaxial dimension on image 71 of series 7. EXAMINATION: CT CHEST WITH IV CONTRAST CT ABDOMEN AND PELVIS WITH IV CONTRAST CLINICAL INFORMATION: History of cancer. Mass in chest. COMPARISON: CT images of the neck from 11/08/2022. TECHNIQUE: Multidetector CT imaging examination of the chest, abdomen and pelvis was performed with intravenous administration of 100 mL Omnipaque 350. Axial images are displayed at 0.625 mm and 5 mm slice thickness. Coronal and sagittal reformatted images were generated at the technologist's workstation and submitted for review.? This CT examination was performed using dose optimization techniques as appropriate, variously including the following: *Automated exposure control *Adjustment of mA and/or kV according to patient size (this includes techniques or standardized protocols for targeted exams where dose is matched to indication/reason for exam; i.e. extremities or head) *Use of iterative reconstruction technique DLP: 3061 mGy-cm (for CT exams of the neck, chest, abdomen and pelvis) FINDINGS: CHEST - LUNGS AND PLEURA:? Several scattered peripheral linear opacities of atelectasis in each lung. No airspace disease or pleural effusion. No lung mass or suspicious lung nodule. MEDIASTINUM/LOWER NECK: A large mediastinal mass and/or confluent lymphadenopathy within the mediastinum occupies the right paratracheal area and exerts significant mass effect upon the superior vena cava which is invaded by tumor; however, contrast does opacify some of the lumen of the SVC; there is no complete occlusion. The mass also infiltrates around and compresses the left brachiocephalic vein near its confluence with the SVC. The mass, which displaces the trachea to the left of midline, measures up to 7 cm transverse and approximately 9 cm AP at the level of the aortic arch. There is also lobulated infiltrative tumor or lymphadenopathy occupying the region of the aortopulmonary window and projecting lateral to the pulmonary artery trunk. The esophagus and visualized portion of the thyroid gland are unremarkable. CARDIOVASCULAR: The heart size is normal. Three-vessel coronary artery atherosclerotic calcification, status post coronary artery bypass graft surgery. Pulmonary arteries are normal in caliber. No evidence of central pulmonary embolism. Thoracic aorta is 4 cm AP diameter at the level the right pulmonary artery. LYMPHATICS: No axillary or internal mammary lymphadenopathy. At the thoracic inlet, a large right paratracheal lymph node is 2 cm in short axis dimension. Also, a few mildly enlarged lymph nodes are detected in the right lower neck. A prominent right hilar lymph node is 1.3 cm in short axis dimension. No pathologic sized left hilar lymph nodes. CHEST WALL/BONES OF THORAX: No chest wall mass. Sternotomy is healed. Mild osteoarthritis of the right glenohumeral joint with osteochondral body in the subscapularis recess of the joint. Mild and moderate multilevel discovertebral degenerative change of the thoracic spine. No suspicious osseous lesion within the thorax. ABDOMEN AND PELVIS - HEPATOBILIARY: Liver has normal size and contour. Mild focal steatosis is present in hepatic segment 4 adjacent to the falciform ligament. No evidence of liver metastasis. Gallbladder is unremarkable. No dilated bile ducts. PANCREAS: Pancreas is mildly atrophied and otherwise unremarkable. SPLEEN: Normal. ADRENAL GLANDS: Normal. KIDNEYS AND URETERS: Kidneys are normal in size and attenuation. No renal mass. No nephrolithiasis, hydronephrosis or perinephric fluid collection. BOWEL AND PERITONEUM: No dilated loops of bowel. The appendix is normal. No overt bowel wall thickening. No mesenteric fat stranding, ascites or pneumoperitoneum. Diverticula of the colon without evidence of diverticulitis. ABDOMINAL WALL: A fat-containing midline abdominal wall hernia is observed just superior to the umbilicus. The hernia sac measures 3.8 cm transverse. A fat-containing left inguinal hernia is present. There is minimal protrusion of fat into the proximal right inguinal canal. VESSELS: Atherosclerosis of the abdominal aorta without aneurysm. LYMPH NODES: No pathologic sized lymph nodes in the abdomen or pelvis. No inguinal lymphadenopathy. BLADDER AND PELVIC VISCERA: Urinary bladder is normal. Prostate gland is unremarkable. No pelvic free fluid. OTHER MUSCULOSKELETAL: Scattered opacities in subcutaneous tissues of the gluteal regions could represent injection granulomas. Mild osteoarthritis of the hips. Multilevel disc degenerative change and facet arthropathy of the lumbar spine. The mild lucency and sclerosis at the superior plate of L2 appear to be related to disc degenerative change. CT/CT chest w IV con IMPRESSION: *? Large mass or confluent lymphadenopathy occupies the right paratracheal area of the mediastinum and displaces the trachea to the left of midline. The mass invades and compresses the SVC. *? There is lymphadenopathy in the right lower neck and right hilum. Also, there is infiltration of tumor or lymphadenopathy in the region of the aortopulmonary window and projecting lateral to the pulmonary artery trunk. *? No evidence of metastatic disease in the abdomen or pelvis. *? Atherosclerotic disease of coronary arteries, status post coronary artery bypass graft surgery. Independent Historian Clinical information obtained from an independent historian. History obtained from or confirmed by: Spouse External Record Review External record reviewed: Inpatient record, Office record, Outpatient record, Prior outpatient labs, Prior outpatient radiology, Primary care record and Outside ED record All records in our system were reviewed by myself Chronic Conditions Patient?s care impacted by: Cancer Procedures Laceration Laceration 1: Site: face Side (If applicable): right Size (cm): 3 Description: linear Depth: involves muscle layer Local Anesthetic: lidocaine 1% Amount of anesthesia used (mL): 5 Pre-repair: wound explored, irrigated extensively and deep structures intact Skin layer closed with: nylon Size (cm): 5-0 Number of sutures: 7 Technique: simple, interrupted Critical Care Time Critical Care Time Critical Care Time: Yes Total Critical Care Time: 60 Attestation: I personally attest to this time spent taking care of the patient Discharge Plan Discharge Clinical Impression: Laceration, Syncope, vasovagal, Mass of mediastinum, Abnormal CT scan, chest, Compressed superior vena cava Patient Disposition: Home, Self-Care Instructions: Syncope (ED), Facial Laceration (ED) Additional Instructions: Please return in 5 days for suture removal. You had an abnormal CT scan of your chest which revealed a mediastinal mass compressing on your superior vena cava. If you develop any lightheadedness, changes in your skin color such as cyanosis or bluish color or any other symptoms he will need to return immediately. I gave you a handout of your results from [facility] and the new results here for your CT scan it appears that the mediastinal mash is about the same size although the CT scan from [facility] report does not mention compression of SVC therefore unsure if this is new or old. Please bring a copy to your provider call them today to make an appointment as soon as possible. Return if any new or worsening symptoms. Follow up with your primary care provider in the next 2-3 days. Prescriptions: No Action No Known Home Meds Referrals: Santino Marie MD [Primary Care Provider] - 1 day Stand Alone Forms: Work/School Release
[2022-11-08] MEDS: iohexoL 350 MG/ML 100 ML INFUS..BTL IV (12:50)
--- NOTE | 2022-11-08 15:47 | PC.NURSE ---
iv removed upon dc
== END 2022-11-08 15:47 | disposition home or self-care (01) ==
PROVIDERS: Physician Assistant Medical; Emergency Provider Emergency Medicine Emergency Medical Services; PCP Internal Medicine
DX: S00.01XA Abrasion of scalp, initial encounter (principal); R55 Syncope and collapse; I87.1 Compression of vein; R91.8 Other nonspecific abnormal finding of lung field; R51.9 Headache, unspecified; M54.2 Cervicalgia; M54.6 Pain in thoracic spine; R10.9 Unspecified abdominal pain; R07.89 Other chest pain; W01.0XXA Fall on same level from slipping, tripping and stumbling without subsequent striking against object, initial encounter; Y93.9 Activity, unspecified; Y92.9 Unspecified place or not applicable; Y99.9 Unspecified external cause status; Z79.899 Other long term (current) drug therapy; Z23 Encounter for immunization
CPT/HCPCS: 12013; 36415; 70450; 70491; 71046; 71260; 72125; 74177; 80053; 82550; 83735; 84484; 85025; 85610; 90471; 90715; 93005; 99284; Q9967

== ENCOUNTER 2022-12-05 09:38 | Outpatient (REF) | payer OTHER, SELFPAY ==
[2022-12-05 09:53] LABS: MANUAL DIFF FLAG NO
[2022-12-05 10:55] LABS: Basophils Percent Auto 0.6 % (0-2); Eosinophils Absolute Auto 0.1 X10*3/uL (0.0-0.4); Hematocrit 42.4 % (42.0-52.0); Hemoglobin 14.4 g/dl (14.0-18.0); Imm Gran Abs Auto 0.03 X10*3/uL (0.00-0.03); Imm Gran Pct Auto 0.5 % (0.0-0.4); Lymphocytes Absolute Auto 1.1 X10*3/uL (1.2-4.9); Lymphocytes Percent Auto 17.2 % (20-40); Mean Corpuscular Hemoglobin 31.4 pg (27.0-33.0); Mean Corpuscular Volume 92.4 fL (80.0-98.0); Mean Platelet Volume 9.7 fL (9.4-12.4); Monocytes Absolute Auto 0.5 X10*3/uL (0.1-1.2); Monocytes Percent Auto 7.6 % (2-11); Neutrophils Absolute Auto 4.7 x10*3/uL (2.0-8.3); Neutrophils Percent Auto 72.1 % (45-73); Platelet Count 311 X10*3/uL (160-400); Red Blood Count 4.59 X10*6/uL (4.60-5.80); Red Cell Distribution Width 13.6 % (11.0-16.0); White Blood Count 6.6 X10*3/uL (4.8-10.8)
[2022-12-05 11:56] LABS: Alanine Aminotransferase 22 U/L (0-40); Albumin Level 4.6 g/dL (3.5-5.0); Alkaline Phosphatase 83 U/L (39-117); Anion Gap 17 (12-20); Aspartate Amino Transferase 22 U/L (5-37); Bilirubin Total 0.8 mg/dL (0.0-1.0); Blood Urea Nitrogen 12 mg/dL (9-16); Calcium 9.8 mg/dL (8.4-10.2); Carbon Dioxide 22 mmol/L (22-29); Chloride 102 mmol/L (96-108); Cholesterol 274 mg/dL; Estimated Glomerular Filt Rate > 60; Glucose Fasting 113 mg/dL (60-99); HDL Cholesterol 41 mg/dL; LDL Cholesterol Calculated 199 mg/dl; Potassium 4.7 mmol/L (3.3-5.1); Sodium 136 mmol/L (135-145); Total Protein 7.9 g/dL (6.5-8.0); Triglycerides 170 mg/dL
[2022-12-05 12:16] LABS: Prostate Specific Antigen Scr 0.42 ng/mL (<0.05-4.0)
== END 2022-12-05 09:39 | disposition home or self-care (01) ==
LOC: HO.LAB 09:38
PROVIDERS: PCP Internal Medicine; Visit Provider Internal Medicine
DX: Z00.00 Encounter for general adult medical examination without abnormal findings (principal); Z12.5 Encounter for screening for malignant neoplasm of prostate
CPT/HCPCS: 36415; 80053; 80061; 84153; 85025

== ENCOUNTER 2022-12-27 01:23 | Emergency (ER) | payer OTHER, SELFPAY ==
--- NOTE | ~2022-12-27 | CT_ITS ---
EXAMINATION: CT CHEST WITH CONTRAST CLINICAL INFORMATION: Right upper chest pain, question Pancoast tumor COMPARISON: 11/08/2022 TECHNIQUE: Multidetector volumetric CT imaging of the chest was obtained after the administration of 85 mL of Omnipaque 350 intravenous contrast without immediate adverse reactions. Axial MIP volume rendering provided. Sagittal and coronal reformatted images were obtained. This CT examination was performed using dose optimization techniques as appropriate, variously including the following: *Automated exposure control *Adjustment of mA and/or kV according to patient size (this includes techniques or standardized protocols for targeted exams where dose is matched to indication/reason for exam; i.e. extremities or head) *Use of iterative reconstruction technique DLP: 681 mGy-cm FINDINGS: LUNGS: Redemonstrated curvilinear atelectasis in the medial right upper lobe adjacent to the previously identified large mediastinal mass. No new consolidation identified bilaterally. MEDIASTINUM: Visualized thyroid gland is grossly unremarkable. Redemonstrated large mediastinal mass in the right aspect of the mediastinum abutting the trachea and ascending aorta. This measures up to approximately 10.1 x 7.1 cm in the axial plane, without significant change from prior. There is associated mass effect on the SVC which is significantly narrowed, and the possibility of a short occluded segment and/or mass invasion into the vessel is difficult to exclude. Redemonstrated masslike soft tissue to the left of the main pulmonary artery is without significant change, measuring up to approximately 6.3 x 1.5 cm in the axial plane with extension into the AP window. Cardiac size is within normal limits; no pericardial effusion. Coronary artery calcifications are present. Prominent ascending aorta measures approximately 4.1 cm in diameter. PLEURA: No pneumothorax or pleural effusion. AXILLA: No lymphadenopathy. UPPER ABDOMEN: There is contrast enhancement of the inferior vena cava, suspicious for collateral flow in the setting of significant SVC narrowing versus obstruction. OSSEOUS STRUCTURES: Status post sternotomy. Degenerative changes are noted in the spine. CT/CT chest w IV con IMPRESSION: 1. No significant change in size of the large mediastinal mass since 11/08/2022, most suspicious for malignancy. Mass effect on the SVC which is significantly narrowed and may include an occluded segment and/or mass invasion into the vessel. Contrast enhancement of the inferior vena cava is in keeping collateral flow in the setting of significant SVC narrowing versus obstruction. 2. Additional masslike soft tissue in the left mediastinum is without significant change. 3. Prominent ascending aorta measuring approximately 4.1 cm in diameter.
[2022-12-27 01:54] VITALS: BP 149/90; PULSE 68; RESP 16; TEMP 36.7; O2SAT 94; BMI 38.9
[2022-12-27 02:45] VITALS: PULSE 60; RESP 16; TEMP 36.6; O2SAT 95
--- NOTE | 2022-12-27 02:59 | ED.EXTPRO ---
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 comes in for sudden onset of pain in the right upper chest deep aching pain started all of a sudden with no relation to movement or breathing feels pain deep inside which sharp feeling in between feels very uncomfortable patient had CT chest in 11/03 which showed worsening of the tumor Related Data Previous Rx's Medication Instructions Recorded gabapentin 100 mg capsule 100 mg PO TID PRN Pain (Scale 12/27/22 Score 4-6) #30 caps oxycodone 5 mg tablet 5 mg PO Q6H PRN pain #20 tabs 12/27/22 Allergies Allergy/AdvReac Type Severity Reaction Status Date / Time No Known Allergies Allergy Verified 12/27/22 01:57 Review of Systems Review of Systems: Yes all other systems are reviewed and are negative PMFSH Past Medical History Medical History Cancer Excessive daytime sleepiness Morbidly obese Obesity (BMI 30-39.9) MARIKA (obstructive sleep apnea) Social History Social History Alcohol intake: never Patient Tobacco Use Status: Never used Tobacco Advance Directives: No Advance Directives Information Provided: Yes Physical Exam Vital Signs: Vital Signs: Last Vital Signs Temp 98.0 F 12/27/22 05:55 Pulse 58 12/27/22 05:55 Resp 16 12/27/22 05:55 BP 118/70 12/27/22 05:55 Pulse Ox 95 12/27/22 05:55 O2 Del Method Room Air 12/27/22 05:55 BMI result Body Mass Index 38.9 Appearance: Alert. Oriented X3. No acute distress. Eyes: PERRLA, No Nystagmus ENT: Pharynx normal. Oral Mucosa moist Neck: Normal inspection. Neck supple. Local deep tenderness right upper trapezius area CVS: Normal heart rate and rhythm. Pulses normal. Respiratory: No respiratory distress. Equal air entry bilateral, no wheezing/rales/rhonchi Abdomen: Soft and nontender. Bowel sounds are present, no mass palpable, no CVA tenderness Skin: Skin warm and dry. Normal skin color. Normal skin turgor. Extremities: No lower extremity edema. No calf tenderness right shoulder with good range of movement no signs of rotator cuff tendinitis Neuro: Oriented X 3. No motor deficit. No sensory deficit.No cerebellar signs , cranial nerves II-XII intact Medications Administered Discontinued Medications Generic Name Dose Route Start Last Admin Trade Name Freq PRN Reason Stop Dose Admin Hydromorphone HCl 1 mg 12/27/22 05:08 12/27/22 05:14 Hydromorphone Hcl 1 Mg/Ml Syringe IVPUSH 12/27/22 05:09 1 mg ONCE ONE Administration Protocol Iohexol 85 ml 12/27/22 04:28 12/27/22 04:28 Iohexol 350 Mg/Ml 100 Ml Infus..Btl IV 12/27/22 04:29 85 ml ONCE ONE Administration Morphine Sulfate 4 mg 12/27/22 03:11 12/27/22 03:46 Morphine Sulfate 4 Mg/Ml Cartridge IVPUSH 12/27/22 03:12 4 mg ONCE ONE Administration Protocol Ondansetron HCl 4 mg 12/27/22 03:11 12/27/22 03:46 Ondansetron Hcl 4 Mg/2 Ml Vial IVPUSH 12/27/22 03:12 4 mg ONCE ONE Administration Medical Decision Making Medical Decision Making [facility] Narrative: Patient with carcinoid pain in the right upper back etiology not very clear likely involved on the nerve. We will discharge patient home on oxycodone Lab Data [facility] Lab Attestation statement: I reviewed the patient's lab results. 12/27/22 03:40 12/27/22 03:40 Labs: Lab Results 12/27/22 12/27/22 Range/Units 03:40 03:40 WBC 7.5 (4.8-10.8) X10*3/uL RBC 4.47 L (4.60-5.80) X10*6/uL Hgb 13.7 L (14.0-18.0) g/dl Hct 40.7 L (42.0-52.0) % MCV 91.1 (80.0-98.0) fL MCH 30.6 (27.0-33.0) pg MCHC 33.7 (31.0-36.0) g/dl RDW 13.2 (11.0-16.0) % Plt Count 306 (160-400) X10*3/uL MPV 8.8 L (9.4-12.4) fL Immature Gran % (Auto) 0.4 (0.0-0.4) % Neut % (Auto) 79.2 H (45-73) % Lymph % (Auto) 11.8 L (20-40) % [place] % (Auto) 7.0 (2-11) % Eos % (Auto) 1.3 (0-4) % Baso % (Auto) 0.3 (0-2) % Lymph # (Auto) 0.9 L (1.2-4.9) X10*3/uL [place] # (Auto) 0.5 (0.1-1.2) X10*3/uL Eos # (Auto) 0.1 (0.0-0.4) X10*3/uL Baso # (Auto) 0.0 (0.0-0.2) X10*3/uL Abs Immat Gran (auto) 0.03 (0.00-0.03) X10*3/uL Absolute Neuts (auto) 5.9 (2.0-8.3) x10*3/uL Absolute Nucleated RBC 0.000 (0.0-0.012) X10*3/uL Nucleated RBC % (auto) 0.0 (0.0-0.2) /100WBC Sodium 137 (135-145) mmol/L Potassium 4.4 (3.3-5.1) mmol/L Chloride 102 (96-108) mmol/L Carbon Dioxide 26 (22-29) mmol/L Anion Gap 13 (12-20) BUN 14 (9-16) mg/dL Creatinine 0.84 (0.5-1.4) mg/dL Estim Creat Clear Calc 142.5 Estimated GFR > 60 Random Glucose 151 H (60-115) mg/dL Calcium 9.3 (8.4-10.2) mg/dL Total Bilirubin 0.5 (0.0-1.0) mg/dL AST 21 (5-37) U/L ALT 27 (0-40) U/L Alkaline Phosphatase 78 (39-117) U/L Total Protein 7.1 (6.5-8.0) g/dL Albumin 4.3 (3.5-5.0) g/dL Radiology Impression Discussion of test interpretation with radiology: I have reviewed the radiologist's reading. Radiologist Impression: CT/CT chest w IV con IMPRESSION: 1.? No significant change in size of the large mediastinal mass since 11/08/2022, most suspicious for malignancy. Mass effect on the SVC which is significantly narrowed and may include an occluded segment and/or mass invasion into the vessel. Contrast enhancement of the inferior vena cava is in keeping collateral flow in the setting of significant SVC narrowing versus obstruction. 2.? Additional masslike soft tissue in the left mediastinum is without significant change. 3.? Prominent ascending aorta measuring approximately 4.1 cm in diameter. Discharge Plan Discharge Clinical Impression: Neuralgic pain, Musculoskeletal back pain Patient Disposition: Home, Self-Care Instructions: Thoracic Pain (ED) Additional Instructions: Cause of pain in your upper back is not very clear likely musculoskeletal/nerve pain from the cancer you have Take pain medication and gabapentin advised Follow-up with your PCP/specialist for further management Prescriptions: New oxycodone 5 mg tablet 5 mg PO Q6H PRN (Reason: pain) Qty: 20 0RF Rx Instructions: Partial Fill upon patient request. gabapentin 100 mg capsule 100 mg PO TID PRN (Reason: Pain (Scale Score 4-6)) Qty: 30 0RF
[2022-12-27 03:43] LABS: MANUAL DIFF FLAG NO
[2022-12-27 03:44] LABS: Basophils Percent Auto 0.3 % (0-2); Eosinophils Absolute Auto 0.1 X10*3/uL (0.0-0.4); Eosinophils Percent Auto 1.3 % (0-4); Hematocrit 40.7 % (42.0-52.0); Hemoglobin 13.7 g/dl (14.0-18.0); Imm Gran Abs Auto 0.03 X10*3/uL (0.00-0.03); Imm Gran Pct Auto 0.4 % (0.0-0.4); Lymphocytes Absolute Auto 0.9 X10*3/uL (1.2-4.9); Lymphocytes Percent Auto 11.8 % (20-40); Mean Corpuscular HGB Conc 33.7 g/dl (31.0-36.0); Mean Corpuscular Hemoglobin 30.6 pg (27.0-33.0); Mean Corpuscular Volume 91.1 fL (80.0-98.0); Mean Platelet Volume 8.8 fL (9.4-12.4); Monocytes Absolute Auto 0.5 X10*3/uL (0.1-1.2); Neutrophils Absolute Auto 5.9 x10*3/uL (2.0-8.3); Neutrophils Percent Auto 79.2 % (45-73); Platelet Count 306 X10*3/uL (160-400); Red Blood Count 4.47 X10*6/uL (4.60-5.80); Red Cell Distribution Width 13.2 % (11.0-16.0); White Blood Count 7.5 X10*3/uL (4.8-10.8)
[2022-12-27 03:46] VITALS: RESP 16
[2022-12-27] MEDS: Morphine Sulfate 4 MG/ML CARTRIDGE IVPUSH (03:46)
[2022-12-27] MEDS: ondansetron HCL 4 MG/2 ML VIAL IVPUSH (03:46)
[2022-12-27 04:07] LABS: Alanine Aminotransferase 27 U/L (0-40); Albumin Level 4.3 g/dL (3.5-5.0); Alkaline Phosphatase 78 U/L (39-117); Anion Gap 13 (12-20); Aspartate Amino Transferase 21 U/L (5-37); Bilirubin Total 0.5 mg/dL (0.0-1.0); Blood Urea Nitrogen 14 mg/dL (9-16); Calcium 9.3 mg/dL (8.4-10.2); Carbon Dioxide 26 mmol/L (22-29); Chloride 102 mmol/L (96-108); Creatinine Clr Calc Pharmacy 142.5; Estimated Glomerular Filt Rate > 60; Glucose Random 151 mg/dL (60-115); Potassium 4.4 mmol/L (3.3-5.1); Sodium 137 mmol/L (135-145); Total Protein 7.1 g/dL (6.5-8.0)
[2022-12-27] MEDS: iohexoL 350 MG/ML 100 ML INFUS..BTL 85 ML IV (04:28)
[2022-12-27 05:14] VITALS: RESP 15
[2022-12-27] MEDS: HYDROmorphone HCl 1 MG/ML SYRINGE IVPUSH (05:14)
[2022-12-27 05:55] VITALS: BP 118/70; PULSE 58; RESP 16; TEMP 36.7; O2SAT 95
--- NOTE | 2022-12-27 06:23 | PC.NURSE ---
Pt a&o, no sob or chest pain, no sign of distress, Reviewed discharge instruction, pt verbalized understanding Notified RN Sindy .
== END 2022-12-27 06:24 | disposition home or self-care (01) ==
PROVIDERS: Emergency Provider Internal Medicine; PCP Internal Medicine
DX: M79.18 Myalgia, other site (principal); M54.6 Pain in thoracic spine; E66.9 Obesity, unspecified; Z68.38 Body mass index [BMI] 38.0-38.9, adult; C38.3 Malignant neoplasm of mediastinum, part unspecified
CPT/HCPCS: 36415; 71260; 80053; 85025; 96374; 96375; 99284; J1170; J2270; J2405; Q9967

== ENCOUNTER 2023-01-11 13:09 | Outpatient (REF) | payer OTHER, SELFPAY ==
--- NOTE | ~2023-01-11 | XR_ITS ---
EXAMINATION: XR CHEST CLINICAL INFORMATION: Cough COMPARISON: Previous chest CT most recent December 2022 and chest x-ray or 2019. TECHNIQUE: 2 views of the chest were obtained. FINDINGS: The cardiac silhouette does not appear enlarged. Large right mediastinal mass appears unchanged. There is minimal linear scarring or chronic subsegmental atelectasis in the right upper lobe that is stable. The lungs are otherwise clear. No pleural effusion or pneumothorax. Median sternotomy. Degenerative changes of the thoracic spine. Increased density or sclerosis of the scapula. No corresponding abnormality is seen on recent CT December 2022 and this is probably artifactual due to overlapping bone.. XR/XR chest 2V IMPRESSION: No evidence for acute disease in the chest. Stable chest x-ray exam.
[2023-01-11 13:43] LABS: Estimated Average Glucose 137 mg/dL; Hemoglobin A1c % 6.4 %
[2023-01-11 14:12] LABS: Anion Gap 15 (12-20); Blood Urea Nitrogen 10 mg/dL (9-16); Calcium 9.5 mg/dL (8.4-10.2); Carbon Dioxide 25 mmol/L (22-29); Chloride 103 mmol/L (96-108); Estimated Glomerular Filt Rate > 60; Glucose Random 114 mg/dL (60-115); Potassium 4.5 mmol/L (3.3-5.1); Sodium 138 mmol/L (135-145)
[2023-01-11 15:11] LABS: Influenza A PCR NEGATIVE (Negative); Influenza B PCR NEGATIVE (Negative); Resp Syncy Virus RNA Qual PCR NEGATIVE (Negative); SARS COV2 PCR INHOUSE NEGATIVE (Negative)
== END 2023-01-11 13:10 | disposition home or self-care (01) ==
LOC: HO.LAB 13:09
PROVIDERS: PCP Internal Medicine; Visit Provider Internal Medicine
DX: R05.9 Cough, unspecified (principal); R35.1 Nocturia; R73.9 Hyperglycemia, unspecified; Z20.822 Contact with and (suspected) exposure to COVID-19
CPT/HCPCS: 0241U; 36415; 71046; 80048; 82550; 83036; 86140

== ENCOUNTER → 2023-02-01 13:29 | Outpatient (BNVA) | payer OTHER, SELFPAY | PROVIDERS: PCP Internal Medicine; Referring Provider Internal Medicine; Visit Provider Internal Medicine ==

== ENCOUNTER 2023-02-17 06:15 | Outpatient (REF) | payer OTHER, SELFPAY ==
--- NOTE | ~2023-02-17 | XR_ITS ---
EXAMINATION: XR SHOULDER, RIGHT CLINICAL INFORMATION: Pain COMPARISON: None available. TECHNIQUE: 3 views of the right shoulder. FINDINGS: Transaxillary view is limited due to patient positioning. Bone alignment is normal. No fracture or dislocation. Normal glenohumeral joint. Arthritis at the acromioclavicular joint. Normal soft tissues. Right superior mediastinal mass and surgical clips. This is similar to January 2023 chest x-ray. XR/XR shoulder RT min 2V IMPRESSION: Arthritis at the acromioclavicular joint.
== END 2023-02-17 06:16 | disposition home or self-care (01) ==
LOC: HO.HOSX 06:15
PROVIDERS: Visit Provider Physician Assistant
DX: M25.511 Pain in right shoulder (principal); M25.811 Other specified joint disorders, right shoulder
CPT/HCPCS: 73030

== ENCOUNTER → 2023-03-30 07:54 | Outpatient (REF) | payer OTHER, SELFPAY ==
--- NOTE | ~2023-03-30 | NM_ITS ---
EXERCISE MYOCARDIAL PERFUSION STUDY INDICATION: Coronary artery disease TECHNIQUE: The patient was brought in for an exercise perfusion study on 03/30/2023. Patient performed exercise as per Abraham protocol and was injected 40 mCi of sestamibi once target heart rate was achieved. Images were obtained using the SPECT gamma camera interlaced with the gating device. Images were obtained in supine position. Resting perfusion study was performed on 04/06/2023. Patient was administered 40 mCi of sestamibi intravenously at rest. Images were then obtained in supine position. Images were processed with the software and compared side to side in short axis, horizontal long axis and vertical long axis views. Total DLP 153mGy-cm. FINDINGS: Raw images were reviewed. The stress perfusion study showed diminished tracer uptake in the distal part of lateral wall, including adjacent apex. There is significant improvement with CT attenuation correction suggestive of soft tissue attenuation artifact. The gated study shows low normal LV systolic function with calculated LVEF of 54%. LV cavity is normal in size. The gated study shows diminished lateral contractility. Resting study shows mildly diminished tracer uptake in the distal part of lateral wall. There is partial improvement with CT attenuation correction. Gating at rest reveals normal wall motion with ejection fraction at 59%. The findings are consistent with fixed appearing distal lateral defect, probably from soft tissue attenuation artifact. NM/NM cardiolite stress test IMPRESSION: 1. Myocardial perfusion imaging study shows probably normal myocardial perfusion. 2. Gated LVEF is 54% during stress and 59% during rest. Correlate with echocardiogram. 3. Transient ischemic dilatation not present. EKG component of the test reported separately.
--- NOTE | 2023-03-30 07:57 | CA_ITS ---
Acquisition Time: 2023-03-30 08:00:58 Total Exercise Time: 00:07:22 Test Indications: CAD Medications: ATORVASTATIN GABAPENTIN LORAZAPAM Protocol: TIARRA Max HR: 139 BPM 84% of Pred: 165 BPM Max BP: 184/100 mmHG Max Work Load: 9.1 METS Exercise stress test using Tiarra protocol, total of 7 min 22 sec. Pt became SOB at stage 3 and test stopped. No CP. METS 9.10 TAPHR 84 %. EKG with Mild ST elevation at a VR and V1 and mild ST depressions at lead V3 and V4 that resolved in recovery. Hypertensive response to exercise. Nuxclear images to follow. Test reviewed with Dr. Mcdaniel. Referred By: Can Jarrell Overread By: Norah Brock NP
== END ==
LOC: HO.CARD 07:54
PROVIDERS: PCP Internal Medicine; Visit Provider Internal Medicine
DX: I25.10 Atherosclerotic heart disease of native coronary artery without angina pectoris (principal)
CPT/HCPCS: 78452; 93017; A9500

== ENCOUNTER → 2023-03-30 07:57 | Outpatient (BNV) | payer OTHER, SELFPAY | PROVIDERS: PCP Internal Medicine; Visit Provider Nurse Practitioner Family | DX: I25.10 Atherosclerotic heart disease of native coronary artery without angina pectoris (principal) | CPT/HCPCS: 78452; 93016; 93018 ==

== ENCOUNTER → 2023-04-14 14:50 | Outpatient (REF) | payer OTHER, SELFPAY ==
--- NOTE | 2023-04-14 14:54 | CA_ITS ---
Transthoracic Echocardiogram Patient (Last, First, Middle): Shyam Espinosa, Gender: Male Date of : 1965 Age: 57 Procedure Date: 04/14/2023 Procedure Type: Transthoracic Echocardiogram Location: OP Height: 185.42 cm Weight: 129.28 kg BSA: 2.50 m2 Heart Rate: bpm BP: 132 / 80 mmHg Special Education Educational Assistant: Referring MD: Can Jarrell MD Symptoms: I25.10 - Atherosclerotic heart disease of [place] coronary artery without... Study Quality: Adequate w Definity ECG Rhythm: Sinus Conclusions: - The left ventricular systolic function is normal. The calculated ejection fraction is 63% by biplane method. - No obvious valvular pathology seen on this study. - There is mild dilatation of the sinuses of Valsalva measuring 4.40 cm and mild dilatation of the ascending aorta measuring 4.00 cm. Findings Procedure Information Contrast agent, definity, is being given per protocol without apparent complications. Left Ventricle Normal left ventricular cavity size. There is moderately increased left ventricular wall thickness. The left ventricular systolic function is normal. The calculated ejection fraction is 63% by biplane method. There is no evidence of regional wall motion abnormalities. Diastolic function is normal for age. Right Ventricle The right ventricle was not well visualized. Probably normal systolic function. Atria Both atria are normal in size. Aortic Valve The aortic valve was not well visualized. There is no aortic valve stenosis. There is trace (trivial) aortic valve regurgitation. Mitral Valve The mitral valve appears normal. There is no mitral valve regurgitation. There is no mitral valve stenosis. Pulmonic Valve The pulmonic valve is likely normal. Tricuspid Valve There is trace tricuspid valve regurgitation. There is no evidence of pulmonary hypertension. Great Vessels There is mild dilatation of the sinuses of Valsalva measuring 4.40 cm and mild dilatation of the ascending aorta measuring 4.00 cm. Venous The inferior vena cava is normal in size and collapses greater than 50% with inspiration. Pericardium/Pleural There is no evidence of pericardial effusion. Prior Study Comparison No prior study available for comparison. Recommendations, Care & Conclusions No obvious valvular pathology seen on this study. Measurements 2D Linear Measurements IVSd: 1.40 0.6-0.9/0.6-1.0 cm LVIDd: 4.60 3.9-5.3/4.2-5.9 cm LVIDd Index: 1.84 2.4-3.2/2.2-3.1 cm/m2 LVIDs: 3.10 2.0-3.6 cm LVPWd: 1.40 0.7-1.1 cm Ao Root: 4.40 2.1-3.5 cm LA Diam: 4.10 2.7-3.8/3.0-4.0 cm LAIDs Index: 1.64 1.5-2.3 cm/m2 LV Mass: 320.20 67-162/88-224 g LV Mass Index: 128.08 43-95/49-115 g/m2 LVOT Diam: 2.50 3.0+(-)1.3 cm 2D Systolic Function EF 4C: 64.90 >55% EF 2C: 61.10 >55% EF BiP: 63.00 >55% Mitral Valve MV Pk E: 0.76 MV PK A: 0.74 MV Decel Time: 209.00 E/A: 1.00 E'Lateral: 11.50 E'Medial: 4.68 E/E' Med: 16.20 E/E' Lat: 6.60 PHT: 61.00 MVA PHT: 3.61 Decel [place]: 3.63 Aortic Valve AoV Pk Roshan: 1.72 AoV Mn Roshan: 1.16 AoV VTI: 0.38 AoV Pk Grad: 12.00 Aov Mn Grad: 6.00 PAULETTE Cont.VTI: 3.72 LVOT LVOT Pk [place]: 1.19 LVOT Mn [place]: 0.75 LVOT VTI: 0.29 LVOT Pk Grad: 6.00 LVOT Mn Grad: 3.00 LVOT Diam: 2.50 LVOT Area: 4.91 Diastolic Function MV Pk E: 0.76 MV Pk A: 0.74 E/A: 1.00 E'Medial: 4.68 E/E' Med: 16.20 E' Laterial: 11.50 E/E' Lat: 6.60 Right Ventricle TVS' Roshan: 12.00 Tricuspid Valve TR Pk [place]: 1.60 TR Pk Grad: 10.00 RA Press: 3.00 RVSP: 13.00 Great Vessels Aorta Ao Root-2D: 4.40 2.0-3.7 cm Sinus of Valsalva: 4.40 2.0-3.5 cm Ao Asc: 4.00 2.1-3.4 cm Pulmonary Valve PV Pk [place]: 0.96 Peak PV Grad: 4.00 Updated in Other Vendor System with Status of Final Can Jarrell MD electronically signed on 04/16/2023 9:31:40 AM with status of Final
== END ==
LOC: HO.CARD 14:50
PROVIDERS: PCP Internal Medicine; Visit Provider Internal Medicine
DX: I25.10 Atherosclerotic heart disease of native coronary artery without angina pectoris (principal)
CPT/HCPCS: 93306; Q9957

== ENCOUNTER → 2023-04-14 14:54 | Outpatient (BNV) | payer OTHER, SELFPAY | PROVIDERS: PCP Internal Medicine; Visit Provider Internal Medicine | DX: I25.10 Atherosclerotic heart disease of native coronary artery without angina pectoris (principal) | CPT/HCPCS: 93306 ==

== ENCOUNTER 2023-04-21 14:30 | Outpatient (AMB) | payer OTHER, SELFPAY ==
[2023-04-21 14:31] VITALS: BP 100/70; PULSE 69; BMI 37.5
--- NOTE | 2023-04-21 14:31 | MHC.OFFVIS ---
Intake Vital Signs 04/21/23 14:31 Height 6 ft 1 in Weight 284 lb 6.341 oz BMI 37.5 BP 100/70 Blood Pressure Location Rt brachial Position Sitting Pulse 69 Pulse Source Pulse Oximeter Intake Visit Reasons: follow up echo Intake Note: f/u after echo Postpartum Nurse Required: No Allergies No Known Allergies Allergy (Verified 04/21/23 14:38) Medication List - Last Reconciled 04/21/23 by Lisbet Thomas, MAYANK-C atorvastatin 20 mg PO QPM gabapentin 100 mg PO TID PRN lorazepam 1 mg PO BEDTIME PRN sildenafil mg PO HPI follow up echo HPI Details Shyam is a 57-year-old male with past medical history obesity, hyperlipidemia, obstructive sleep apnea, mediastinal mass, recent CT scan with findings of severe coronary calcifications just underwent an echocardiogram and stress test and now presents for follow-up. Today he reports that he feels a vague pressure, fullness in his chest and shortness of breath with activity. He says it feels like there is something in there. He believes this is related to the mediastinal mass. He has an intermittent cough. No other chest area discomfort. No palpitations, dizziness, presyncope, syncope, falls, PND, orthopnea or edema. 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 He follows with Oncology. 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 [facility] Medical History Cancer Excessive daytime sleepiness Morbidly obese Obesity (BMI 30-39.9) MARIKA (obstructive sleep apnea) Family History Mother Breast cancer Diabetes Father No problems noted. 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 Review of Systems Const All systems reviewed & are unremarkable except as noted in HPI and below ENT Denies dizziness Card Details: Vague chest fullness Denies chest pain, Denies chest pain at rest, Denies chest pain with activity, Denies rapid heart rate, Denies pedal edema, Denies edema, Denies leg edema, Denies lightheadedness, Denies palpitations, Reports dyspnea, Denies dyspnea on exertion and Denies orthopnea Resp Denies cough, Reports dyspnea and Denies dyspnea on exertion GI Denies hematochezia and Denies change in stool character Musc Denies abnormal gait, Reports limited range of motion, Reports muscle cramps, Denies muscle weakness, Denies numbness, Denies radiating pain into limb, Denies stiffness and Denies tingling Neuro Denies abnormal gait, Denies dizziness, Denies numbness and Denies tingling Endo Denies palpitations Physical Exam Vital Signs: Last Vital Signs Pulse 69 04/21/23 14:31 BP 100/70 04/21/23 14:31 BMI result Body Mass Index 37.5 Const General: cooperative, healthy appearing, comfortable and no acute distress Orientation/consciousness: patient oriented x3 Neck Neck: Yes normal visual inspection Resp Effort & Inspection: normal respiratory effort Auscultation: clear to auscultation bilaterally, no crackles, no rales, no rhonchi and no wheezes Cardio Jugular venous distension: no JVD Rate: regular rate Rhythm: regular rhythm Heart sounds: S1 normal heart sound present, S2 normal heart sound present, no gallops, no murmurs and no rubs GI Inspection: Yes normal to inspection Neuro General: patient oriented x3 Extrem General: Yes normal to inspection, No no pedal edema and No calf tenderness Psych Appearance: grossly normal Mental Status: mental status grossly normal Speech and movement: Normal speech and movement present Assessment & Plan Assessment & Plan (1) CAD (coronary artery disease): Code(s): I25.10 - Atherosclerotic heart disease of [place] coronary artery without angina pectoris Plan: Recent chest CT scan with findings of severe coronary calcifications. He has no prior known history of CAD. Cardiac risk factors of obesity and hyperlipidemia. No reports of anginal sounding symptoms. He does have a fullness type sensation is most likely related to his chest mass. EKG done 11/08/2022 shows normal sinus rhythm with no acute ST or T-wave abnormalities, rate 64. Nuclear stress test done on 04/06/2023 showed good exercise tolerance then shortness of breath, mild ST changes, nuclear imaging showing normal myocardial perfusion. Echocardiogram done 04/14/2023 shows EF 63%, normal valves, dilation of the sinus of Valsalva 4.4 cm. Today he reports that he continues to have a fullness type sensation in his chest and some shortness of breath with activity with intermittent cough. He describes having a neuroendocrine tumor that is being followed by Oncology and will begin chest radiation soon. Cardiac test results reviewed with him. He likely has nonobstructive coronary artery disease. He is on atorvastatin. He has an upcoming lipid profile planned. Recommend ideal LDL goal less than 70. He is not on aspirin. Recommend start of aspirin 81 mg daily if no contraindication. He will check with oncologist. No need for beta-keysha at present. Heart rate and blood pressure currently well controlled. Activity as tolerated. Cardiology follow-up 6 months, sooner if needed (2) Coronary artery calcification seen on CAT scan: Code(s): I25.10 - Atherosclerotic heart disease of [place] coronary artery without angina pectoris Plan: Severe calcifications noted (3) Abnormal CT scan, chest: Code(s): R93.89 - Abnormal findings on diagnostic imaging of other specified body structures Plan: Neuroendocrine tumor. Being followed by Oncology (4) Dilatation of aorta: Comment: Sinus of Valsalva Code(s): I77.819 - Aortic ectasia, unspecified site Plan: Echo shows dilation at the sinus of Valsalva 4.4 cm. Blood pressure is currently well controlled. Will plan for repeat echo 1 year from last. Orders: Orders CA echo transthoracic complete 11 Months I25.10 - Atherosclerotic heart disease of [place] coronary artery without angina pectoris, I77.819 - Aortic ectasia, unspecified site Coding Level of Care Code Est Pt Level 4 (18081) Diagnoses CAD (coronary artery disease) I25.10 Coronary artery calcification seen on CAT scan I25.[address] scan, chest R93.89 Dilatation of aorta I77.819 Time Spent (min) 28 Comment Chart review, documentation, interview, assess
== END 2023-04-21 15:21 | disposition home or self-care (01) ==
PROVIDERS: PCP Internal Medicine; Referring Provider Internal Medicine; Visit Provider Nurse Practitioner Family
DX: I25.10 Atherosclerotic heart disease of native coronary artery without angina pectoris (principal); R93.89 Abnormal findings on diagnostic imaging of other specified body structures; I77.819 Aortic ectasia, unspecified site
CPT/HCPCS: 99214

== ENCOUNTER → 2023-04-21 14:30 | Outpatient (BNVA) | payer OTHER, SELFPAY | PROVIDERS: PCP Internal Medicine; Referring Provider Internal Medicine; Visit Provider Nurse Practitioner Family ==

== ENCOUNTER 2023-04-28 14:00 | Outpatient (RCR) | payer OTHER, SELFPAY ==
--- NOTE | 2023-03-20 16:15 | MHC.PT.EP ---
[facility] [place] Office [place] Office [place] Office [address] David Cutler [address] [phone] F: [phone] F: [phone] F: [phone] F: [phone] Physical Therapy Plan of Care Date of Evaluation: Date of Surgery: Diagnosis: M25.811 Other specified joint disorder, right shoulder ROM, RTC/ periscap AP stabilization date of referral 02/17/23 by [place] Bates Assessment: Pt is RHD 57 y/o male, referred to PT for treatment of R shoulder pain following onset of sx which began 6-8 months ago. M25.811 Other specified joint disorder, right shoulder, ROM, RTC/ periscap/AP stabilization date of referral 02/17/23 by [place] Bates. Pt exhibits impaired AROM, decreased strength, and decreased tolerance for lying on his R side. Intolerance for reaching behind his back, (+) impingement special testing. Pt would benefit from attending skilled PT services at a frequency of 2x/week x 6 weeks to address impairments, implement HEP, and restore functional mobility tolerance to resume PLOF. Pt initiated in AAROM program post evaluation with positive understanding. Pt educated re: goal of icing/support. Frequency and Duration: The patient will be seen 2x/week x 6 weeks Short Term Goals: 1. AAROM R shoulder flexion to 160 degrees. 2. R shoulder strength>mobility to resume dressing MOD I sx <2/10 R shoulder. 3. Resume sleeping in R SL. 4. Reduce shoulder pain by 25%. 5. Improve SPADI score by 25%. Spindle Carver Goals: 1. Strength 5/5 R shoulder all planes. 2. Cervical and R shoulder AROM WFL no sx >2/10. 3. Reach behind back to wash back MOD I no sx >2/10 R UE. 4. Be able to perform quick movement of R UE sx <2/10 for recreational shooting tasks. Treatment Plan: Modalities to reduce pain, spasms and effusion. Manual therapy to restore motion and function. Therapeutic exercise to improve strength and flexibility. Neuromuscular re-education for posture and balance. Therapeutic activities to return to functional activities of daily living. Electronically signed by: Ольга Dykes PT, DPT Please sign and return to therapist. Thank you for your referral.
== END 2023-08-29 11:00 | disposition home or self-care (01) ==
LOC: HO.PTWFD 14:00
PROVIDERS: PCP Internal Medicine; Visit Provider Physician Assistant
DX: M25.811 Other specified joint disorders, right shoulder (principal)
CPT/HCPCS: 97110; 97140; 97150; 97162; 97535

== ENCOUNTER 2023-05-08 12:02 | Outpatient (REF) | payer OTHER, SELFPAY ==
--- NOTE | ~2023-05-08 | US_ITS ---
EXAMINATION: US VENOUS ULTRASOUND WITH DOPPLER LOWER EXTREMITY, RIGHT CLINICAL INFORMATION: Right flank pain COMPARISON: None available. TECHNIQUE: Ultrasound of the deep veins is performed from the hip to the calf with compression sonography and color and pulse Doppler assessment. Spectral analysis with color-flow imaging is performed. FINDINGS: There is normal venous compression and respiratory variation and augmented flow. The visualized common femoral vein, superficial femoral vein, profunda femoral vein, popliteal vein, and the trifurcation region shows no evidence of deep venous thrombosis. There is no significant popliteal fossa cyst. If the patient's symptoms persist, followup ultrasound in 5 days 7 days might be of value to exclude proximal propagation from a non-visualized calf vein. US/US venous duplex LE RT IMPRESSION: No DVT demonstrated in the right lower extremity.
== END 2023-05-08 12:03 | disposition home or self-care (01) ==
LOC: HO.US 12:02
PROVIDERS: PCP Internal Medicine; Visit Provider Internal Medicine
DX: M79.604 Pain in right leg (principal)
CPT/HCPCS: 93971

== ENCOUNTER 2023-11-27 13:30 | Outpatient (AMB) | payer OTHER, SELFPAY ==
--- NOTE | 2023-11-27 13:35 | A.OFFVIS_ITS ---
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 He underwent a chest CT for noncardiac reasons and that showed coronary calcification. Patient himself does not have any history of coronary artery disease, myocardial infarction or cardiomyopathy. He is morbidly obese. He has high lipids on statins. Otherwise, within limits of his activity has not had any symptoms like angina. Some shortness of breath at times but he thinks that could be allergies related. Otherwise, he has the neuroendocrine tumor but we do not have any details and will need to get records from [facility]. He apparently follows with , Heme-onc. [facility] Medical History Cancer Morbidly obese Excessive daytime sleepiness MARIKA (obstructive sleep apnea) Obesity (BMI 30-39.9) Family History Mother Breast cancer Diabetes Father No problems noted. 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 Review of Systems Const Denies weakness ENT Denies dizziness Card Denies chest pain, Denies chest pain with activity, Denies syncope, Denies rapid heart rate, Denies pedal edema, Denies edema, Denies leg edema, Denies lightheadedness, Denies palpitations, Denies dyspnea, Denies dyspnea on exertion and Denies orthopnea Resp Denies cough, Denies dyspnea and Denies dyspnea on exertion GI Denies hematochezia and Denies change in stool character Musc Denies abnormal gait, Denies muscle cramps, Denies muscle weakness, Denies numbness, Denies radiating pain into limb and Denies tingling Neuro Denies Abnormal speech present, Denies abnormal gait, Denies dizziness, Denies syncope, Denies numbness, Denies tingling and Denies weakness Endo Denies palpitations Physical Exam Vital Signs: Last Vital Signs Pulse 69 11/27/23 13:36 BP 138/90 H 11/27/23 13:36 BMI result Body Mass Index 38.4 Const General: comfortable and no acute distress Orientation/consciousness: patient oriented x3 HEENT Other: Unremarkable Head: Yes normal to inspection Neck Neck: Yes normal visual inspection Chest Chest palpation & inspection: normal inspection of the chest Resp Auscultation: clear to auscultation bilaterally Cardio Palpation: normal PMI Heart sounds: S1 normal heart sound present, S2 normal heart sound present, no gallops, no murmurs and no rubs GI Palpation (GI): Soft to palpation Back/Spine/Pelvis Other: unremarkable Skin General skin exam: no rashes or lesions noted Neuro General: patient oriented x3 Speech: No Abnormal speech present Extrem General: Yes normal to inspection Psych Mental Status: mental status grossly normal Office Procedures EKG Details: EKG with sinus rhythm at 69/Min; no significant ST-T changes and otherwise [place]remarkable. [place] [id number], Complete Assessment & Plan Assessment & Plan (1) CAD (coronary artery disease): Code(s): I25.10 - Atherosclerotic heart disease of [place] coronary artery without angina pectoris (2) Dilatation of aorta: Comment: Sinus of Valsalva Code(s): I77.819 - Aortic ectasia, unspecified site (3) Morbidly obese: Code(s): E66.01 - Morbid (severe) obesity due to excess calories Plan Cardiac studies reviewed. EKG with sinus at 64/Min; no significant ST-T changes and otherwise unremarkable. Normal CA/corrected QT. Chest CT scan with description of three-vessel coronary artery calcifications. There is also description of mediastinal mass concerning for malignancy as well as mass effect on the SVC with possible narrowing/occlusion. Ascending aortic size mention at 4.1 cm. Echocardiogram with LVEF of 63%. No significant valvular issues. Sinus of Valsalva mildly dilated at 4.4 cm and ascending aorta 4 cm. Probably acceptable for his large body habitus. Myocardial perfusion imaging study probably normal, at 9.1 METS exercise capacity. Overall, stable coronary disease but no clinical angina. Appropriate risk factor modification. He is clearly overweight. Weight loss will help, if he can attempt. With regard to lipids, on the higher side but he states he does not take statins regularly. He will need to take atorvastatin daily and then we can recheck lipids in a few months. May need higher dose based on the results. Blood pressure is borderline high today. It was completely normal last time. May monitor for now. If stays high then will address. We discussed about this today. With regard noncardiac findings on CT scan, previously contacted his oncologist. He does follow up regularly with [facility] Oncology. Total time spent including review of data, counseling, documentation, coordination of care 30 minutes. Orders: Orders Lipid Panel 3 Months E78.5 - Hyperlipidemia, unspecified Coding Level of Care Code Est Pt Level 4 (79289) Diagnoses CAD (coronary artery disease) I25.10 Dilatation of aorta I77.819 Morbidly obese E66.01 CPT Codes EKG - CPT: [id number], Complete ([id number])
[2023-11-27 13:36] VITALS: BP 138/90; PULSE 69; BMI 38.4
== END 2023-11-27 14:04 | disposition home or self-care (01) ==
PROVIDERS: PCP Internal Medicine; Visit Provider Internal Medicine
DX: I25.10 Atherosclerotic heart disease of native coronary artery without angina pectoris (principal); I77.819 Aortic ectasia, unspecified site; E66.01 Morbid (severe) obesity due to excess calories
CPT/HCPCS: 93010; 99214

== ENCOUNTER → 2023-11-27 13:30 | Outpatient (BNVA) | payer OTHER, SELFPAY | PROVIDERS: PCP Internal Medicine; Visit Provider Internal Medicine | DX: I25.10 Atherosclerotic heart disease of native coronary artery without angina pectoris (principal); I77.819 Aortic ectasia, unspecified site; E66.01 Morbid (severe) obesity due to excess calories | CPT/HCPCS: 93005 ==

== ENCOUNTER 2023-12-26 14:34 | Outpatient (REF) | payer OTHER, SELFPAY ==
--- NOTE | ~2023-12-26 | XR_ITS ---
EXAMINATION: XR CHEST CLINICAL INFORMATION: Cough. COMPARISON: Chest x-ray January 11, 2023. CT chest December 27, 2022 TECHNIQUE: 2 views FINDINGS: Status post median sternotomy. Decreased size of the right superior mediastinal mass compared to chest x-ray January 11, 2023. Linear scarring extending from this density into the right upper lobe prominent than the prior study. Linear atelectasis in the left mid and lower lung. No pleural effusion. No pulmonary vascular congestion. XR/XR chest 2V IMPRESSION: 1. Decreased size of the right superior mediastinal mass compared to chest x-ray January 11, 2023. 2. Linear scarring in the right upper lobe.
[2023-12-26 15:03] LABS: MANUAL DIFF FLAG NO
[2023-12-26 15:33] LABS: Basophils Percent Auto 0.6 % (0-2); Eosinophils Absolute Auto 0.2 X10*3/uL (0.0-0.4); Eosinophils Percent Auto 2.5 % (0-4); Hematocrit 39.8 % (42.0-52.0); Hemoglobin 13.5 g/dl (14.0-18.0); Imm Gran Abs Auto 0.05 X10*3/uL (0.00-0.03); Imm Gran Pct Auto 0.7 % (0.0-0.4); Lymphocytes Absolute Auto 0.9 X10*3/uL (1.2-4.9); Lymphocytes Percent Auto 12.7 % (20-40); Mean Corpuscular HGB Conc 33.9 g/dl (31.0-36.0); Mean Corpuscular Hemoglobin 31.2 pg (27.0-33.0); Mean Corpuscular Volume 91.9 fL (80.0-98.0); Mean Platelet Volume 9.4 fL (9.4-12.4); Monocytes Absolute Auto 0.8 X10*3/uL (0.1-1.2); Monocytes Percent Auto 10.7 % (2-11); Neutrophils Absolute Auto 5.2 x10*3/uL (2.0-8.3); Neutrophils Percent Auto 72.8 % (45-73); Platelet Count 289 X10*3/uL (160-400); Red Blood Count 4.33 X10*6/uL (4.60-5.80); Red Cell Distribution Width 14.6 % (11.0-16.0); White Blood Count 7.1 X10*3/uL (4.8-10.8)
[2023-12-26 16:44] LABS: Alanine Aminotransferase 19 U/L (0-40); Albumin Level 4.4 g/dL (3.5-5.0); Alkaline Phosphatase 75 U/L (39-117); Anion Gap 14 (12-20); Aspartate Amino Transferase 21 U/L (5-37); Bilirubin Total 0.8 mg/dL (0.0-1.0); Blood Urea Nitrogen 15 mg/dL (9-16); C Reactive Protein 2.05 mg/dL (< or = 0.50); Calcium 9.7 mg/dL (8.4-10.2); Carbon Dioxide 26 mmol/L (22-29); Chloride 101 mmol/L (96-108); Estimated Glomerular Filt Rate > 60; Glucose Random 123 mg/dL (60-115); Potassium 3.9 mmol/L (3.3-5.1); Sodium 137 mmol/L (135-145); Total Protein 8.1 g/dL (6.5-8.0)
[2023-12-26 17:34] LABS: Cholesterol 217 mg/dL (<200); HDL Cholesterol 42 mg/dL (>40); LDL Cholesterol Calculated 148 mg/dL (<100); Triglycerides 137 mg/dL (<150)
== END 2023-12-26 14:35 | disposition home or self-care (01) ==
LOC: HO.LAB 14:34
PROVIDERS: Internal Medicine; PCP Internal Medicine; Visit Provider Internal Medicine
DX: R07.89 Other chest pain (principal); R05.9 Cough, unspecified; E78.5 Hyperlipidemia, unspecified
CPT/HCPCS: 36415; 71046; 80053; 80061; 82550; 85025; 86140

== ENCOUNTER 2024-02-12 08:25 | Emergency (ER) | payer OTHER, SELFPAY ==
[2024-02-12 08:29] VITALS: BP 132/95; PULSE 71; RESP 18; TEMP 36.9; O2SAT 97; BMI 37.5
--- NOTE | 2024-02-12 09:38 | ED.HEATRA ---
HPI - Head Injury General Chief complaint: Skin/Abscess/Foreign Body Stated complaint: nose inj at work laceration Time Seen by Provider: 02/12/24 09:01 Source: patient Mode of arrival: ambulatory Limitations: no limitations History of Present Illness ED Provider: Soniod Luu PA-C HPI Narrative: 58 y/o male with history of morbid obesity, CAD on aspirin and statin who presents to the ER for evaluation of a laceration to his nose sustained just prior to arrival. 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 When he went to get out of his cruiser, he accidentally into a street sign, causing a superficial laceration to the bridge of his nose. He did not lose consciousness. He has not on anticoagulation. The a small abrasion on the bridge of the nose was actively bleeding so he came to the ER for evaluation. On arrival to the ER patient is awake, alert, oriented. Bleeding has stopped. No other injuries. He denies headache or neck pain. Tdap is not up-to-date MD Complaint: head injury Onset (ago): minute(s) Mechanism of Injury: work related injury Place: outdoors Loss of Consciousness: no Location of injury: face Severity: mild Severity scale (1-10): 3 Radiation: none Other Injuries: none Associated symptoms: denies other symptoms Related Data Home Medications ?Medication ?Instructions ?Recorded ?Confirmed lorazepam 1 mg tablet 1 mg PO BEDTIME PRN 02/01/23 11/27/23 sildenafil 50 mg tablet mg PO 04/21/23 11/27/23 Previous Rx's ?Medication ?Instructions ?Recorded gabapentin 100 mg capsule 100 mg PO TID PRN Pain (Scale 12/27/22 Score 4-6) #30 caps atorvastatin 80 mg tablet 80 mg PO QPM #30 tabs 12/27/23 Allergies Allergy/AdvReac Type Severity Reaction Status Date / Time No Known Allergies Allergy Verified 02/12/24 08:31 Review of Systems Review of Systems: Yes all other systems are reviewed and are negative [facility] Past Medical History Medical History Cancer Morbidly obese Excessive daytime sleepiness MARIKA (obstructive sleep apnea) Obesity (BMI 30-39.9) Family History Family History Mother Breast cancer Diabetes Father No problems noted. 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 Oriented X3. No acute distress. Head/face: normocephalic. superficial abrasion to the forehead, linear from the top of the forehead to the bridge of the nose. no active bleeding. Eyes: Pupils equal, round and reactive to light. ENT: there is a superficial laceration proximal aspect of the bridge of the nose with no active bleeding. Well approximated. Normal inspection of the nares, no deformity, crepitus. No step hematoma. No epistaxis.Pharynx normal. No tonsillar swelling or exudate. Neck: Normal inspection. Neck supple. Respiratory: No respiratory distress. Skin: Skin warm and dry. Normal skin color. Normal skin turgor. No rashes. Extremities: No lower extremity edema. No joint swelling. Neuro/psych: Oriented X 3. No motor deficit. No sensory deficit. CN II-XII intact. Normal speech and cognition. Medical Decision Making Medical Decision Making MDM Narrative: 58-year-old male presenting to the ER for a superficial laceration with the bridge of his nose sustained on a metal street sign. on examination there is no gross deformity, low clinical just before new bone fracture. No active bleeding on examination. The laceration small and seems to have epithelialized already. No need for suture repair at this time. Will cleaned with alcohol, skin glue was applied as well as Steri-Strips remote adequate healing. His Tdap is up-to-date. He is neurologically intact with no complaints of headache or neck pain. Will defer imaging today. Wound care was discussed and stable for discharge home Differential Diagnosis Differential Diagnoses: The differential diagnosis associated with the presentation includes superficial duration, deep laceration, nasal bone fracture, concussion Tests considered The following testing was considered but not selected: considered CT of the head and face however low clinical suspicion for ICH or nasal bone fracture Prescription Management I considered prescription management with: Pain Medication Chronic Conditions Patient?s care impacted by: Other (CAD on aspirin) Procedures Laceration Laceration 1: Site: face Size (cm): 1 Description: linear Depth: simple, single layer Pre-repair: irrigated extensively Skin layer closed with: other (exofin skin glue and steri strip) Critical Care Time Critical Care Time Critical Care Time: No Discharge Plan Discharge Clinical Impression: Facial laceration Qualifiers: Encounter type: initial encounter Qualified Code(s): S01.81XA - Laceration without foreign body of other part of head, initial encounter Patient Disposition: Home, Self-Care Instructions: Laceration (DC) Additional Instructions: Skin and Steri-Strips were used to close the wound on your face. These will fall off on, do peel them off. Do not get wet for 24 hours, after that you can briefly get wet with soap and rhythm per eye. Take Tylenol and Motrin as needed for pain. Follow-up with your doctor as needed. If you develop new or worsening symptoms call 911 or come back to the ER for further evaluation. Prescriptions: No Action atorvastatin 80 mg tablet 80 mg PO QPM Qty: 30 5RF Rx Instructions: New dose 80 mg gabapentin 100 mg capsule 100 mg PO TID PRN (Reason: Pain (Scale Score 4-6)) Qty: 30 0RF lorazepam 1 mg tablet 1 mg PO BEDTIME PRN sildenafil 50 mg tablet PO Print Language: Wolof
--- NOTE | 2024-02-12 09:58 | PC.NURSE ---
received tetanus shot 10/2022, did not administer this visit
[2024-02-12 09:59] VITALS: BP 132/95; PULSE 71; RESP 18; TEMP 36.9; O2SAT 97
== END 2024-02-12 10:00 | disposition home or self-care (01) ==
PROVIDERS: Emergency Provider Emergency Medicine; PCP Internal Medicine
DX: S01.21XA Laceration without foreign body of nose, initial encounter (principal); W22.8XXA Striking against or struck by other objects, initial encounter; Y93.9 Activity, unspecified; Y92.9 Unspecified place or not applicable; Y99.0 Civilian activity done for income or pay
CPT/HCPCS: 12011; 99282

== ENCOUNTER → 2024-02-13 09:49 | Outpatient (BNVA) | payer OTHER, SELFPAY | PROVIDERS: PCP Internal Medicine; Visit Provider Physician Assistant Medical | DX: S01.21XA Laceration without foreign body of nose, initial encounter (principal); W22.09XA Striking against other stationary object, initial encounter | CPT/HCPCS: 99202 ==

== ENCOUNTER → 2024-03-21 13:51 | Outpatient (REF) | payer OTHER, SELFPAY ==
--- NOTE | 2024-03-21 13:53 | CA_ITS ---
Transthoracic Echocardiogram Patient (Last, First, Middle): Shyam Espinosa, Gender: Male Date of : 1965 Age: 58 Procedure Date: 03/21/2024 Procedure Type: Transthoracic Echocardiogram Location: OP Height: 185.42 cm Weight: 128.82 kg BSA: 2.50 m2 Heart Rate: 69 bpm BP: 128 / 85 mmHg [employer] Territory Manager: ASHLEY Javed MD: Lisbet Thomas INVENTORY AUDITORAntony Primer Boxer: Xiang Mcdaniel MD Symptoms: I77.819 - Aortic ectasia, unspecified site Study Quality: Fair w/Contrast ECG Rhythm: Sinus Conclusions: - 1. Normal LV ejection fraction of 60-65% with mild LVH 2. Limited visualization of cardiac valves with normal cardiac valvular Doppler 3. Overall technically limited study Findings Procedure Information Contrast agent, definity, is being given per protocol without apparent complications. Left Ventricle Normal left ventricular size and systolic function. There is mildly increased left ventricular wall thickness. The visually estimated ejection fraction is between 60-65%. Spectral Doppler is indicative of an impaired relaxation filling pattern. Right Ventricle The right ventricle was not well visualized. Atria The left atrium was not well visualized. Interatrial shunt cannot be excluded. The right atrium was not well visualized. Aortic Valve The aortic valve was not well visualized. There is no aortic valve stenosis. There is no aortic valve regurgitation. Mitral Valve The mitral valve was not well visualized. There is trace mitral valve regurgitation. There is no mitral valve stenosis. Pulmonic Valve The pulmonic valve was not well visualized. Tricuspid Valve The tricuspid valve was not well visualized. Tricuspid regurgitation envelope is inadequate for calculation of right ventricular systolic pressure. Normal right atrial pressure. Great Vessels The pulmonary artery was not well visualized. There is mild dilatation of the ascending aorta measuring 4.00 cm. Venous The inferior vena cava is normal in size and collapses greater than 50% with inspiration. Pericardium/Pleural The pericardium was not well visualized. Measurements 2D Linear Measurements IVSd: 1.22 0.6-0.9/0.6-1.0 cm LVIDd: 4.98 3.9-5.3/4.2-5.9 cm LVIDd Index: 1.99 2.4-3.2/2.2-3.1 cm/m2 LVIDs: 2.62 2.0-3.6 cm LVPWd: 1.34 0.7-1.1 cm LA Diam: 4.70 2.7-3.8/3.0-4.0 cm LAIDs Index: 1.88 1.5-2.3 cm/m2 LV Mass: 317.36 67-162/88-224 g LV Mass Index: 126.94 43-95/49-115 g/m2 LVOT Diam: 2.50 3.0+(-)1.3 cm 2D Systolic Function EF 4C: 62.00 >55% EF 2C: 65.60 >55% EF BiP: 62.00 >55% Mitral Valve MV Pk E: 0.40 MV PK A: 0.46 MV Decel Time: 275.00 E/A: 0.90 E'Lateral: 6.64 E'Medial: 5.33 E/E' Med: 7.50 E/E' Lat: 6.10 PHT: 80.00 MVA PHT: 2.75 Decel [place]: 1.46 Aortic Valve AoV Pk Roshan: 1.53 AoV Mn Roshan: 1.06 AoV VTI: 0.28 AoV Pk Grad: 9.00 Aov Mn Grad: 5.00 PAULETTE Cont.VTI: 3.82 LVOT LVOT Pk Roshan: 1.02 LVOT Mn Roshan: 0.75 LVOT VTI: 0.22 LVOT Pk Grad: 4.00 LVOT Mn Grad: 3.00 LVOT Diam: 2.50 LVOT Area: 4.91 Diastolic Function MV Pk E: 0.40 MV Pk A: 0.46 E/A: 0.90 E'Medial: 5.33 E/E' Med: 7.50 E' Laterial: 6.64 E/E' Lat: 6.10 Right Ventricle TAPSE (mm): 16.30 TVS' Roshan: 8.92 Tricuspid Valve TR Pk Roshan: 1.81 TR Pk Grad: 13.00 Great Vessels Aorta Sinus of Valsalva: 4.20 2.0-3.5 cm Ao Asc: 4.00 2.1-3.4 cm Pulmonary Valve PV Pk Roshan: 1.11 Peak PV Grad: 5.00 Updated in Other Vendor System with Status of Final Xiang Mcdaniel MD electronically signed on 03/21/2024 3:38:05 PM with status of Final
== END ==
LOC: HO.CARD 13:51
PROVIDERS: PCP Internal Medicine; Visit Provider Nurse Practitioner Family
DX: I25.10 Atherosclerotic heart disease of native coronary artery without angina pectoris (principal); I77.819 Aortic ectasia, unspecified site
CPT/HCPCS: 93306; Q9957

== ENCOUNTER → 2024-03-21 13:53 | Outpatient (BNV) | payer OTHER, SELFPAY | PROVIDERS: PCP Internal Medicine; Visit Provider Internal Medicine Cardiovascular Disease | DX: I51.89 Other ill-defined heart diseases (principal) | CPT/HCPCS: 93306 ==

== ENCOUNTER 2024-03-25 14:00 | Outpatient (RCR) | payer OTHER, SELFPAY | END 2024-07-22 09:42 | disposition home or self-care (01) | LOC: HO.PTWFD 14:00 | PROVIDERS: PCP Internal Medicine; Visit Provider Internal Medicine | DX: M25.511 Pain in right shoulder (principal) | CPT/HCPCS: 97014; 97110; 97140; 97162 ==

== ENCOUNTER 2024-05-14 11:59 | Outpatient (REF) | payer OTHER, SELFPAY ==
--- NOTE | ~2024-05-14 | XR_ITS ---
EXAMINATION: XR CHEST CLINICAL INFORMATION: Cough and wheezing COMPARISON: Chest radiograph 12/26/2023, CT chest 12/27/2022 TECHNIQUE: 2 views of the chest were obtained. FINDINGS: Heart size normal. Patient status post median sternotomy, again seen is a right suprahilar mediastinal mass which appears similar to the 12/26/2023 study. Atelectasis and scarring is present in the right upper lobe and left mid and lower lobe. No pleural effusions. Sclerotic lesion in the right scapula is unchanged. Compared to the 12/26/2023 study, there is been no real significant interval change.. XR/XR chest 2V IMPRESSION: No acute intrathoracic disease. Right suprahilar mediastinal mass unchanged. Electronically signed by: Ciro Howard MD 05/14/2024 02:08 PM EDT
== END 2024-05-14 12:00 | disposition home or self-care (01) ==
LOC: HO.XRAY 11:59
PROVIDERS: PCP Internal Medicine; Visit Provider Internal Medicine
DX: R05.9 Cough, unspecified (principal); R06.2 Wheezing
CPT/HCPCS: 71046

== ENCOUNTER 2024-05-23 15:21 | Emergency (ER) | payer OTHER, SELFPAY ==
[2024-05-23] VITALS (7 sets, daily range): BP systolic 129–142; BP diastolic 76–93; PULSE 70–146; RESP 14–18; TEMP 36.6–37.2; O2SAT 95–98; BMI 37.5
--- NOTE | ~2024-05-23 | XR_ITS ---
EXAMINATION: XR CHEST CLINICAL INFORMATION: Shortness of breath. COMPARISON: Chest radiograph dated 05/14/2024. TECHNIQUE: Frontal view of the chest was obtained. FINDINGS: There are sternotomy sutures. Heart size remains normal. There is a linear opacity within the mid left lung likely representing subsegmental atelectasis. A right suprahilar mediastinal mass is redemonstrated. There is atelectasis and scarring in the right upper lobe, similar to the prior study. No large pleural effusion. No pneumothorax. No acute osseous abnormality. XR/XR chest 1V IMPRESSION: No acute cardiopulmonary disease. Right suprahilar mediastinal mass is redemonstrated. Electronically signed by: Grzegorz Samaniego DO 05/23/2024 06:11 PM EDT
--- NOTE | 2024-05-23 16:17 | ECG_ITS ---
Test Reason : pain Blood Pressure : / mmHG Vent. Rate : 075 BPM Atrial Rate : 075 BPM P-R Int : 146 ms QRS Dur : 092 ms QT Int : 368 ms P-R-T Axes : 029 038 056 degrees QTc Int : 410 ms Normal sinus rhythm Nonspecific ST abnormality Abnormal ECG When compared with ECG of 08-NOV-2022 11:04, Nonspecific ST abnormality is now Present Referred By: Armando Marie Electronically Signed By:HANANE NUNEZ
--- NOTE | 2024-05-23 16:36 | ED.GENADULT ---
HPI - General Adult General Chief complaint: Arrhythmia/Palpitations Stated complaint: chest pain/hr beating fast Time Seen by Provider: 05/23/24 16:06 Source: patient, RN notes reviewed and old records reviewed Mode of arrival: ambulatory Limitations: no limitations History of Present Illness ED Provider: Cynthia CARBONE narrative: 58-year-old male past medical history significant for coronary artery disease, obesity, obstructive sleep apnea, aorta dilatation for evaluation of palpitations and shortness of breath. Patient reports that around 2:30 p.m. today, about 2 hours prior to arrival had ?a sneezing fit. ? He states that he sneezed 6 times in succession Immediately after this he can feel his heart racing and felt short of breath with some pressure in his chest/upper abdomen He states he has never had anything like this in the past The patient had an EKG in triage which shows atrial flutter with a rate of 146 beats per minute. The patient denies any history of atrial fibrillation or atrial flutter Related Data Home Medications ?Medication ?Instructions ?Recorded ?Confirmed lorazepam 1 mg tablet 1 mg PO BEDTIME PRN 02/01/23 11/27/23 sildenafil 50 mg tablet mg PO 04/21/23 11/27/23 Previous Rx's ?Medication ?Instructions ?Recorded gabapentin 100 mg capsule 100 mg PO TID PRN Pain (Scale 12/27/22 Score 4-6) #30 caps atorvastatin 80 mg tablet 80 mg PO QPM #30 tabs 12/27/23 metoprolol succinate 25 mg 25 mg PO DAILY #30 tabs 05/23/24 tablet,extended release 24 hr Allergies Allergy/AdvReac Type Severity Reaction Status Date / Time No Known Allergies Allergy Verified 05/23/24 15:54 Review of Systems Constitutional: Constitutional: Denies body ache(s), Denies chills and Denies fever(s) Eyes: Eyes: Denies blurry vision ENT: Denies sore throat Cardiovascular: Cardiovascular: Reports chest pain, Reports rapid heart rate, Reports irregular heart rhythm, Reports palpitations and Reports dyspnea Respiratory: Respiratory: Denies cough and Reports dyspnea Gastrointestinal: Gastrointestinal: Reports abdominal pain, Denies nausea and Denies vomiting Musculoskeletal: Musculoskeletal: Denies back pain Integumentary/Breasts: Skin/Breast: Denies rash Endocrine: Endocrine: Reports palpitations [facility] Past Medical History Medical History Cancer Morbidly obese Excessive daytime sleepiness MARIKA (obstructive sleep apnea) Obesity (BMI 30-39.9) Family History Family History Mother Breast cancer Diabetes Father No problems noted. 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 Physical Exam ED Vital Signs: Vital Signs - 24 hr 05/23/24 15:48 05/23/24 16:02 05/23/24 16:36 Temperature 98.6 F Pulse Rate 146 H 146 H 75 Respiratory Rate 18 14 Blood Pressure 129/93 H 129/93 H Pulse Oximetry 96 95 Oxygen Delivery Method Room Air Room Air 05/23/24 16:36 05/23/24 16:38 05/23/24 18:19 Temperature 98.1 F 97.8 F Pulse Rate 75 75 70 Respiratory Rate 16 18 Blood Pressure 138/81 142/81 H Pulse Oximetry 95 97 Oxygen Delivery Method Room Air Room Air BMI result Body Mass Index 37.5 Const General: healthy appearing, comfortable, no acute distress, alert and awake Nutritional Appearance: well nourished Orientation/consciousness: patient oriented x3 HENMT Head: Yes normocephalic and Yes atraumatic Eyes Eyelids: Yes eyelids normal Conjunctivae: conjunctivae normal Sclerae: sclerae normal Corneas: corneas normal Pupils: Equal, round and reactive pupils present EOM: EOMs intact bilaterally Neck Neck: Yes full ROM Resp Effort & Inspection: normal respiratory effort, able to speak in complete sentences, no audible wheezes and not labored Auscultation: clear to auscultation bilaterally Cardio Rate: regular rate Rhythm: regular rhythm GI Inspection: No distended Palpation (GI): Soft to palpation, not firm, nontender, no guarding and not rigid Skin General skin exam: elasticity normal Neuro General: patient oriented x3 Cranial nerves: Yes Equal, round and reactive pupils present and Yes Bilaterally intact EOM present Cognition (Neuro): normal cognition Extrem Other: Moving all extremities well without any obvious deformities Course Reevaluation(s) Reevaluation #1: Patient is now asymptomatic, it appears that he spontaneously converted back to normal sinus rhythm. This was confirmed by EKG. He no longer feels any palpitations or pressure in his chest/abdomen. Workup is still pending at this time. The patient reports he had an echocardiogram recently, I records indicate that this was March 21, 2024 that showed LV function of 60-65%. The patient's CHADS-VASc score is a 1 Time: 16:36 Reevaluation #2: I reviewed the patient's chest x-ray which shows a large mass, I compared it to his recent chest x-ray from 9 days ago, and it appears unchanged. The patient reports a history of neuroendocrine tumor which is followed by [facility] as well as [facility]. He reports he gets CT scans of his chest every 3 months. This does not appear to be an acute issue and the patient has very close follow-up. A repeat troponin is currently pending, but thus far the patient's workup is largely unremarkable. I discussed with Cardiology, Dr. Marie, who agrees the patient does not meet criteria for anticoagulation at this time. The patient can safely be discharged home with for remains asymptomatic in the repeat troponin is not significantly elevated. He would like me to discharge the patient on metoprolol extended release 25 mg p.o. the patient has follow-up with his own embedded software test engineer 16 days from today on 06/08/2024. Time: 19:42 Reevaluation #3: Patient's repeat troponin is elevated to 156.8, the patient has been asymptomatic since he broke his a flutter. On re-evaluation at this moment he still reports no chest or abdominal pain. I discussed with Cardiology again who agrees this is likely demand ischemia from his increased heart rate and the patient is stable for discharge. He will follow up with Cardiology as an outpatient Time: 20:05 Medications Administered Discontinued Medications Generic Name Dose Route Start Last Admin Trade Name Freq PRN Reason Stop Dose Admin Diltiazem HCl 20 mg 05/23/24 16:20 05/23/24 16:36 Diltiazem Hcl 50 Mg/10 Ml Vial IVPUSH 05/23/24 16:21 Not Given STAT STA Diltiazem HCl 60 mg 05/23/24 16:20 05/23/24 16:36 Diltiazem Hcl 60 Mg Tablet PO 05/23/24 16:21 Not Given ONCE ONE Protocol Medical Decision Making Medical Decision Making [facility] Narrative: 58-year-old male presents for evaluation of palpitations. His initial EKG confirms a flutter at a rate of 146 beats per minute. By the time I went to see him, the patient had spontaneously converted. No medications were administered prior to his conversion back to normal sinus rhythm. Plan for remainder of workup and will discuss with Cardiology. Differential Diagnosis Differential Diagnoses: The differential diagnosis associated with the presentation includes Atrial fibrillation Atrial flutter Vasovagal syncope Chest pain Demand ischemia Admission/Observation Consideration of admission/observation: Escalation of care including admission/observation considered Consider admission for new onset AFib/a flutter Lab Data 05/23/24 16:40 05/23/24 16:40 Labs: Lab Results 05/23/24 05/23/24 Range/Units 16:40 19:09 WBC 7.9 (4.8-10.8) X10*3/uL RBC 4.24 L (4.60-5.80) X10*6/uL Hgb 13.0 L (14.0-18.0) g/dl Hct 38.5 L (42.0-52.0) % MCV 90.8 (80.0-98.0) fL MCH 30.7 (27.0-33.0) pg MCHC 33.8 (31.0-36.0) g/dl RDW 13.4 (11.0-16.0) % Plt Count 433 H D (160-400) X10*3/uL MPV 8.8 L (9.4-12.4) fL Immature Gran % (Auto) 0.8 H (0.0-0.4) % Neut % (Auto) 78.1 H (45-73) % Lymph % (Auto) 10.2 L (20-40) % [place] % (Auto) 6.7 (2-11) % Eos % (Auto) 3.8 (0-4) % Baso % (Auto) 0.4 (0-2) % Lymph # (Auto) 0.8 L (1.2-4.9) X10*3/uL [place] # (Auto) 0.5 (0.1-1.2) X10*3/uL Eos # (Auto) 0.3 (0.0-0.4) X10*3/uL Baso # (Auto) 0.0 (0.0-0.2) X10*3/uL Abs Immat Gran (auto) 0.06 H (0.00-0.03) X10*3/uL Absolute Neuts (auto) 6.2 (2.0-8.3) x10*3/uL Absolute Nucleated RBC 0.000 (0.0-0.012) X10*3/uL Nucleated RBC % (auto) 0.0 (0.0-0.2) /100WBC PT 14.1 H (11.1-13.3) SEC INR 1.2 H (0.9-1.1) APTT 36.9 H (26.0-36.8) SEC Sodium 139 (135-145) mmol/L Potassium 5.0 D (3.3-5.1) mmol/L Chloride 100 (96-108) mmol/L Carbon Dioxide 30 H (22-29) mmol/L Anion Gap 14 (12-20) BUN 11 (9-16) mg/dL Creatinine 0.89 (0.5-1.4) mg/dL Estim Creat Clear Calc 130.3 Estimated GFR > 60 Random Glucose 228 H (60-115) mg/dL Calcium 9.9 (8.4-10.2) mg/dL Phosphorus 2.8 (2.7-4.5) mg/dL Magnesium 2.0 (1.6-2.6) mg/dL Total Bilirubin 0.3 (0.0-1.0) mg/dL AST 24 (5-37) U/L ALT 41 H (0-40) U/L Alkaline Phosphatase 91 (39-117) U/L Troponin I High Sens 10.3 D 156.8 H* D (<3.5-35.0) ng/L B-Natriuretic Peptide 92 (<100) pg/mL Total Protein 7.9 (6.5-8.0) g/dL Albumin 3.9 (3.5-5.0) g/dL Lipase 48 (8-78) U/L TSH 19.06 H (0.32-4.0) uIU/mL Free T4 0.52 L (0.71-1.85) ng/dL Discharge Plan Discharge Clinical Impression: Atrial fib/flutter, transient Patient Disposition: Home, Self-Care Instructions: Atrial Flutter (ED) Additional Instructions: You had an abnormal heart rhythm called murray bloom. This resolved spontaneously Return to the ER for any new or worsening symptoms In the meantime, call your embedded software test engineer in the morning to see if he would like to expedite your follow-up Cardiology also recommended that you take metoprolol 25 mg daily to help prevent future episodes of abnormally fast rhythms Prescriptions: New metoprolol succinate 25 mg tablet extended release 24 hr 25 mg PO DAILY Qty: 30 0RF No Action atorvastatin 80 mg tablet 80 mg PO QPM Qty: 30 5RF Rx Instructions: New dose 80 mg gabapentin 100 mg capsule 100 mg PO TID PRN (Reason: Pain (Scale Score 4-6)) Qty: 30 0RF lorazepam 1 mg tablet 1 mg PO BEDTIME PRN sildenafil 50 mg tablet PO Print Language: Palauan
[2024-05-23 16:45] LABS: MANUAL DIFF FLAG NO
[2024-05-23 16:47] LABS: Basophils Percent Auto 0.4 % (0-2); Eosinophils Absolute Auto 0.3 X10*3/uL (0.0-0.4); Eosinophils Percent Auto 3.8 % (0-4); Hematocrit 38.5 % (42.0-52.0); Imm Gran Abs Auto 0.06 X10*3/uL (0.00-0.03); Imm Gran Pct Auto 0.8 % (0.0-0.4); Lymphocytes Absolute Auto 0.8 X10*3/uL (1.2-4.9); Lymphocytes Percent Auto 10.2 % (20-40); Mean Corpuscular HGB Conc 33.8 g/dl (31.0-36.0); Mean Corpuscular Hemoglobin 30.7 pg (27.0-33.0); Mean Corpuscular Volume 90.8 fL (80.0-98.0); Mean Platelet Volume 8.8 fL (9.4-12.4); Monocytes Absolute Auto 0.5 X10*3/uL (0.1-1.2); Monocytes Percent Auto 6.7 % (2-11); Neutrophils Absolute Auto 6.2 x10*3/uL (2.0-8.3); Neutrophils Percent Auto 78.1 % (45-73); Platelet Count 433 X10*3/uL (160-400); Red Blood Count 4.24 X10*6/uL (4.60-5.80); Red Cell Distribution Width 13.4 % (11.0-16.0); White Blood Count 7.9 X10*3/uL (4.8-10.8)
[2024-05-23 16:52] LABS: INTERNATIONAL NORM RATIO 1.2 (0.9-1.1); Prothrombin Time 14.1 SEC (11.1-13.3)
[2024-05-23 16:55] LABS: Partial Thromboplastin Time 36.9 SEC (26.0-36.8)
[2024-05-23 17:02] LABS: Alanine Aminotransferase 41 U/L (0-40); Albumin Level 3.9 g/dL (3.5-5.0); Alkaline Phosphatase 91 U/L (39-117); Anion Gap 14 (12-20); Aspartate Amino Transferase 24 U/L (5-37); Bilirubin Total 0.3 mg/dL (0.0-1.0); Blood Urea Nitrogen 11 mg/dL (9-16); Calcium 9.9 mg/dL (8.4-10.2); Carbon Dioxide 30 mmol/L (22-29); Chloride 100 mmol/L (96-108); Creatinine Clr Calc Pharmacy 130.3; Estimated Glomerular Filt Rate > 60; Glucose Random 228 mg/dL (60-115); Lipase 48 U/L (8-78); Phosphorus 2.8 mg/dL (2.7-4.5); Sodium 139 mmol/L (135-145); Total Protein 7.9 g/dL (6.5-8.0)
[2024-05-23 17:07] LABS: B Type Natriuretic Peptide 92 pg/mL (<100); Troponin-I High Sensitivity 10.3 ng/L (<3.5-35.0)
[2024-05-23 17:21] LABS: TSH reflex Free T4 19.06 uIU/mL (0.32-4.0)
[2024-05-23 18:06] LABS: Free T4 (Free Thyroxine) 0.52 ng/dL (0.71-1.85)
--- NOTE | 2024-05-23 19:18 | PC.NURSE ---
this rn assumed care of pt, pt resting in stretcher, no acute distress noted. pt denies chest pain and palpitations. pt normal sinus on tele 60-62bpm.
[2024-05-23 19:55] LABS: Troponin-I High Sensitivity 156.8 ng/L (<3.5-35.0)
== END 2024-05-23 20:31 | disposition home or self-care (01) ==
PROVIDERS: Physician Assistant; Emergency Provider Internal Medicine; PCP Internal Medicine
DX: I49.9 Cardiac arrhythmia, unspecified (principal); I48.91 Unspecified atrial fibrillation; I48.92 Unspecified atrial flutter; R00.2 Palpitations; I25.10 Atherosclerotic heart disease of native coronary artery without angina pectoris; R06.02 Shortness of breath; Z79.899 Other long term (current) drug therapy
CPT/HCPCS: 36415; 71045; 80053; 83690; 83735; 83880; 84100; 84439; 84443; 84484; 85025; 85610; 85730; 93005; 99284; 99285

== ENCOUNTER 2024-08-22 14:08 | Outpatient (REF) | payer OTHER, SELFPAY ==
--- NOTE | ~2024-08-22 | XR_ITS ---
EXAMINATION: XR ABDOMEN KUB CLINICAL INDICATION: ABD PAIN COMPARISON: CT from 11/08/2022 TECHNIQUE: AP view of the abdomen. FINDINGS: The bowel gas pattern is normal with no evidence of ileus or obstruction. No unusual soft tissue calcifications are noted. Mild dextroscoliosis of the lumbar spine with underlying degenerative changes. Degenerative changes also seen in the right sacroiliac joint space and bilateral hip joints. XR/XR KUB IMPRESSION: No acute process. Degenerative changes. Electronically signed by: Eddie Stevens MD 08/22/2024 04:46 PM EST
--- NOTE | ~2024-08-22 | XR_ITS ---
EXAMINATION: XR HIP, RIGHT CLINICAL INFORMATION: RIGHT HIP PAIN COMPARISON: Right hip April 2022 TECHNIQUE: Two views of the right hip. FINDINGS: No fracture. Alignment is anatomic. Hip joint space is maintained. Soft tissues are unremarkable. XR/XR hip RT min 2V IMPRESSION: Normal right hip. Electronically signed by: William Huitron MD 08/22/2024 04:47 PM [facility]
== END 2024-08-22 14:09 | disposition home or self-care (01) ==
LOC: HO.XRAY 14:08
PROVIDERS: PCP Internal Medicine; Visit Provider Internal Medicine
DX: R10.9 Unspecified abdominal pain (principal); M25.551 Pain in right hip
CPT/HCPCS: 73502; 74018

== ENCOUNTER 2024-09-07 06:34 | Emergency (ER) | payer OTHER, SELFPAY ==
[2024-09-07] VITALS (7 sets, daily range): BP systolic 128–145; BP diastolic 92–104; PULSE 71–87; RESP 16–20; TEMP 36.4–36.7; O2SAT 95–96; BMI 37.8
--- NOTE | 2024-09-07 07:08 | PC.NURSE ---
Provider aware of patient reporting left sided tongue numbness/ headache. Provider requesitng patient to be moved to main ED, charge nurse notified.
--- NOTE | 2024-09-07 07:24 | PC.NURSE ---
Care of Pt assumed after transported to Main ED from [facility] [place]. Pt c/o headache 8/10 throbbing in nature since about 10p last night. Additionally, Pt c/o numbness to tongue. 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 Pt denies light sensitivity, n/v/d, or vision changes. A&Ox3, VSS, afebrile. Skin is warm and dry Breaths and speech are even and unlabored Facial symmetry noted. NAD noted at this time. Awaiting orders.
--- NOTE | 2024-09-07 08:00 | ED_ITS ---
HPI - Headache General Chief Complaint: Headache Stated Complaint: shingles, migraine Time Seen by Provider: 09/07/24 07:48 Source: patient and family Mode of arrival: ambulatory Limitations: no limitations History of Present Illness ED Provider: DR. Nowak HPI Narrative: 59-year-old male came in for evaluation headache and left-sided neck pain. Was diagnosed with right side chest wall shingles patient was started on prednisone and Valtrex, then today patient is a complaining of a mild headache accompanied severe left side neck pain, no photophobia, no blurry vision, no nausea, no vomiting, no fever, chills. Patient also feels a numbness of the left side of the tongue with no facial droop or weakness. Related Data Home Medications ?Medication ?Instructions ?Recorded ?Confirmed lorazepam 1 mg tablet 1 mg PO BEDTIME PRN 02/01/23 11/27/23 sildenafil 50 mg tablet mg PO 04/21/23 11/27/23 Previous Rx's ?Medication ?Instructions ?Recorded gabapentin 100 mg capsule 100 mg PO TID PRN Pain (Scale 12/27/22 Score 4-6) #30 caps atorvastatin 80 mg tablet 80 mg PO QPM #30 tabs 12/27/23 metoprolol succinate 25 mg 25 mg PO DAILY #30 tabs 05/23/24 tablet,extended release 24 hr Allergies Allergy/AdvReac Type Severity Reaction Status Date / Time No Known Allergies Allergy Verified 09/07/24 06:57 Review of Systems 2 Review of Systems: All other systems are reviewed and are negative Constitutional: Reports as per HPI and Reports no additional constitutional complaints Eyes: Reports as per HPI and Reports no additional eye complaints Reports system reviewed and no additional complaints, except as documented Cardiovascular: Reports as per HPI and Reports no additional cardiovascular complaints Respiratory: Reports as per HPI and Reports no additional respiratory complaints Gastrointestinal: Reports as per HPI and Reports no additional gastrointestinal complaints Genitourinary: Reports no additional female genitourinary complaints Musculoskeletal: Reports no additional musculoskeletal complaints Skin/Breast: Reports system reviewed and no additional complaints, except as docu Psychiatric: Reports no additional psychiatric complaints Endocrine: Reports no additional endocrine complaints Hematologic/Lymphatic: Reports no additional hematologic/lymphatic complaints Allergic/Immunologic: Reports no additional allergic/immunologic complaints Reports system reviewed and no additional complaints, except as documented and Reports Abnormal speech present [facility] Past Medical History Medical History Cancer Morbidly obese Excessive daytime sleepiness MARIKA (obstructive sleep apnea) Obesity (BMI 30-39.9) Family History Family History Mother Breast cancer Diabetes Father No problems noted. 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 Blood pressure elevated. Heart rate normal. Respiratory rate normal. Temperature normal. Oxygen saturation normal. Appearance: Alert. Oriented X3. No acute distress. Head: Normal external exam. Normocephalic. Atraumatic. No Muniz signs noted. No raccoon eyes noted Eyes: PERRLA. EOMI. Conjunctiva and sclera normal. Eyelids normal. ENT: TM's Normal. Pharynx normal. Uvula midline. Moist mucous membranes. No trismus noted. No drooling noted. No muffled voice noted. Neck: Normal inspection. Neck supple. FROM. No adenopathy. Thyroid Normal. No meningeal signs. No neck mass noted. CVS: Normal heart rate and rhythm. Heart sound normal. No murmurs noted. Pulses normal throughout. Respiratory: No respiratory distress. Painless inspiration. Breath sounds normal. No wheezes/rales/rhonchi noted. Chest nontender. No accessory muscle usage noted or decreased air movement noted. Abdomen: Soft and nontender. Bowel sounds normal in all 4 quadrants. No distention noted. No organomegaly noted. No visible injury noted. Back: No CVA tenderness. Full range of motion noted. Skin: Skin warm and dry. Normal skin color. Normal skin turgor. No rashes/lesions/lacerations noted. Extremities: No lower extremity edema. Extremities exhibit normal range of motion. Extremities nontender. Neuro: Oriented X 3. Cranial nerve exam: II-XII are grossly intact No motor deficit. No sensory deficit. Reflexes normal. Course Reevaluation(s) Reevaluation #1: 59-year-old male who was recently diagnosed with right chest wall herpes zoster patient is currently taking his Valtrex and prednisone for the. 1. Headache left-sided neck pain no photophobia, no fever headache has improved, I explained at length the the indication of lumbar puncture to rule out encephalopathy patient adamantly declined the procedure. Patient expressed full understanding risk and benefit of doing the lumbar puncture and diagnosing the viral encephalopathy which could complicate into a life-threatening situation if it is not diagnosed. Patient was instructed to seek immediate medical attention of the headache is not getting better. 2. Elevated blood sugar patient is nondiabetic it is likely secondary to prednisone. Time: 11:00 Reevaluation #2: Repeat blood sugar is 264, patient feels much better, no headache, no photophobia, no neck stiffness. Patient is still declining LP for further evaluation, will discharge and follow-up with PCP. Time: 12:20 Medications Administered Discontinued Medications Generic Name Dose Route Start Last Admin Trade Name Freq PRN Reason Stop Dose Admin Hydromorphone HCl 1 mg 09/07/24 09:20 09/07/24 10:09 Hydromorphone Hcl 1 Mg/Ml Syringe IM 09/07/24 09:21 1 mg ONCE ONE Administration Protocol Sodium Chloride 1,000 mls @ 999 mls/hr 09/07/24 10:00 09/07/24 11:07 Ns IV 09/07/24 11:00 999 mls/hr .Q1H1M ONE Administration Ibuprofen 600 mg 09/07/24 07:58 09/07/24 08:17 Ibuprofen 600 Mg Tablet PO 09/07/24 07:59 600 mg ONCE ONE Administration Insulin Human Regular 5 unit 09/07/24 10:00 09/07/24 11:15 Insulin Regular, Human 100 Unit/Ml 10 Ml Vial IVPUSH 09/07/24 10:01 5 unit ONCE ONE Administration Ketorolac Tromethamine 30 mg 09/07/24 09:20 09/07/24 10:09 Ketorolac Tromethamine 30 Mg/Ml Vial IM 09/07/24 09:21 30 mg ONCE ONE Administration Oxycodone HCl 5 mg 09/07/24 07:58 09/07/24 08:17 Oxycodone Hcl Immed Release 5 Mg Tablet PO 09/07/24 07:59 5 mg ONCE ONE Administration Medical Decision Making Differential Diagnosis Differential Diagnoses: The differential diagnosis associated with the presentation includes (A prednisone related hyperglycemia, viral encephalopathy, electrolyte derangement, severe anemia, regular headache.) Admission/Observation Consideration of admission/observation: Escalation of care including admission/observation considered Lab Data MDM Lab Attestation statement: I reviewed the patient's lab results. 09/07/24 08:55 09/07/24 08:55 Labs: Lab Results 09/07/24 Range/Units 08:55 WBC 6.5 (4.8-10.8) X10*3/uL RBC 4.26 L (4.60-5.80) X10*6/uL Hgb 12.8 L (14.0-18.0) g/dl Hct 37.2 L (42.0-52.0) % MCV 87.3 (80.0-98.0) fL MCH 30.0 (27.0-33.0) pg MCHC 34.4 (31.0-36.0) g/dl RDW 13.9 (11.0-16.0) % Plt Count 337 (160-400) X10*3/uL MPV 9.1 L (9.4-12.4) fL Immature Gran % (Auto) 0.6 H (0.0-0.4) % Neut % (Auto) 77.1 H (45-73) % Lymph % (Auto) 11.6 L (20-40) % [place] % (Auto) 8.7 (2-11) % Eos % (Auto) 1.5 (0-4) % Baso % (Auto) 0.5 (0-2) % Lymph # (Auto) 0.8 L (1.2-4.9) X10*3/uL [place] # (Auto) 0.6 (0.1-1.2) X10*3/uL Eos # (Auto) 0.1 (0.0-0.4) X10*3/uL Baso # (Auto) 0.0 (0.0-0.2) X10*3/uL Abs Immat Gran (auto) 0.04 H (0.00-0.03) X10*3/uL Absolute Neuts (auto) 5.0 (2.0-8.3) x10*3/uL Absolute Nucleated RBC 0.000 (0.0-0.012) X10*3/uL Nucleated RBC % (auto) 0.0 (0.0-0.2) /100WBC PT 12.6 H (10.9-12.4) SEC INR 1.1 (0.9-1.1) Sodium 134 L (135-145) mmol/L Potassium 4.4 (3.3-5.1) mmol/L Chloride 100 (96-108) mmol/L Carbon Dioxide 23 (22-29) mmol/L Anion Gap 15 (12-20) BUN 16 (9-16) mg/dL Creatinine 0.93 (0.5-1.4) mg/dL Estim Creat Clear Calc 123.9 Estimated GFR > 60 Random Glucose 364 H* (60-115) mg/dL Calcium 9.5 (8.4-10.2) mg/dL Discharge Plan Discharge Clinical Impression: Headache, Steroid-induced hyperglycemia Patient Disposition: Home, Self-Care Instructions: Acute Headache (ED) Prescriptions: No Action atorvastatin 80 mg tablet 80 mg PO QPM Qty: 30 5RF Rx Instructions: New dose 80 mg metoprolol succinate 25 mg tablet extended release 24 hr 25 mg PO DAILY Qty: 30 0RF gabapentin 100 mg capsule 100 mg PO TID PRN (Reason: Pain (Scale Score 4-6)) Qty: 30 0RF lorazepam 1 mg tablet 1 mg PO BEDTIME PRN sildenafil 50 mg tablet PO Referrals: Santino Marie MD [Primary Care Provider] - Print Language: Romansh
[2024-09-07] MEDS: oxyCODONE HCl Immed Release 5 MG TABLET PO (08:17)
[2024-09-07] MEDS: Ibuprofen 600 MG TABLET PO (08:17)
[2024-09-07 08:58] LABS: MANUAL DIFF FLAG NO
[2024-09-07 08:59] LABS: Basophils Percent Auto 0.5 % (0-2); Eosinophils Absolute Auto 0.1 X10*3/uL (0.0-0.4); Eosinophils Percent Auto 1.5 % (0-4); Hematocrit 37.2 % (42.0-52.0); Hemoglobin 12.8 g/dl (14.0-18.0); Imm Gran Abs Auto 0.04 X10*3/uL (0.00-0.03); Imm Gran Pct Auto 0.6 % (0.0-0.4); Lymphocytes Absolute Auto 0.8 X10*3/uL (1.2-4.9); Lymphocytes Percent Auto 11.6 % (20-40); Mean Corpuscular HGB Conc 34.4 g/dl (31.0-36.0); Mean Corpuscular Volume 87.3 fL (80.0-98.0); Mean Platelet Volume 9.1 fL (9.4-12.4); Monocytes Absolute Auto 0.6 X10*3/uL (0.1-1.2); Monocytes Percent Auto 8.7 % (2-11); Neutrophils Percent Auto 77.1 % (45-73); Platelet Count 337 X10*3/uL (160-400); Red Blood Count 4.26 X10*6/uL (4.60-5.80); Red Cell Distribution Width 13.9 % (11.0-16.0); White Blood Count 6.5 X10*3/uL (4.8-10.8)
[2024-09-07 09:06] LABS: INTERNATIONAL NORM RATIO 1.1 (0.9-1.1); Prothrombin Time 12.6 SEC (10.9-12.4)
[2024-09-07 09:58] LABS: Anion Gap 15 (12-20); Blood Urea Nitrogen 16 mg/dL (9-16); Calcium 9.5 mg/dL (8.4-10.2); Carbon Dioxide 23 mmol/L (22-29); Chloride 100 mmol/L (96-108); Creatinine Clr Calc Pharmacy 123.9; Estimated Glomerular Filt Rate > 60; Potassium 4.4 mmol/L (3.3-5.1); Sodium 134 mmol/L (135-145)
[2024-09-07 09:59] LABS: Glucose Random 364 mg/dL (60-115)
[2024-09-07] MEDS: HYDROmorphone HCl 1 MG/ML SYRINGE IM (10:09)
[2024-09-07] MEDS: Ketorolac Tromethamine 30 MG/ML VIAL IM (10:09)
[2024-09-07] MEDS: 0.9 % Sodium Chloride 1,000 ML 999 ML IV (11:07)
[2024-09-07] MEDS: Insulin Regular, Human 100 UNIT/ML 10 ML VIAL IVPUSH (11:15)
[2024-09-07 12:22] LABS: Glucose, Whole Blood 268 mg/dL (60-115)
== END 2024-09-07 12:40 | disposition home or self-care (01) ==
PROVIDERS: Emergency Provider Emergency Medicine; PCP Internal Medicine
DX: R51.9 Headache, unspecified (principal); R73.9 Hyperglycemia, unspecified; T38.0X5A Adverse effect of glucocorticoids and synthetic analogues, initial encounter; Y92.9 Unspecified place or not applicable; E66.9 Obesity, unspecified; Z68.37 Body mass index [BMI] 37.0-37.9, adult
CPT/HCPCS: 36415; 80048; 82947; 85025; 85610; 96372; 96374; 99284; 99285; J1171; J1885

== ENCOUNTER 2024-10-21 10:02 | Emergency (ER) | payer OTHER, SELFPAY ==
--- NOTE | ~2024-10-21 | CT_ITS ---
EXAMINATION: CT KNEE WITHOUT CONTRAST, RIGHT CLINICAL INFORMATION: Questionable fracture on x-ray. Joint effusion. COMPARISON: No prior CT. Right knee radiographs earlier same day. TECHNIQUE: Spiral CT examination of the right knee in axial plane without contrast. Multiplanar reformatted imaging obtained from the axial data set. This CT examination was performed using dose optimization techniques as appropriate, variously including the following: *Automated exposure control *Adjustment of mA and/or kV according to patient size (this includes techniques or standardized protocols for targeted exams where dose is matched to indication/reason for exam; i.e. extremities or head) *Use of iterative reconstruction technique FINDINGS: Small avulsion fracture arising from the medial femoral condyle at the expected insertion of the MCL. No additional fracture. No malalignment. No suspicious bone lesion. Bone island in the medial femoral condyle subarticular region . Mild tricompartmental osteoarthritis. Thickening of the MCL, suggesting strain injury. Extensor mechanism intact. Cannot assess for LCL, cruciate ligament, or meniscal tear on CT exam. Large suprapatellar joint effusion present. CT/CT knee RT wo IV con IMPRESSION: 1. Avulsion fracture arising from the medial femoral insertion of the MCL. MCL strain injury. 2. No additional fracture or malalignment. 3. Large joint effusion Electronically signed by: Tiburcio Antonio MD 10/21/2024 03:25 PM [facility]
--- NOTE | ~2024-10-21 | CT_ITS ---
EXAMINATION: CT HEAD WITHOUT IV CONTRAST HISTORY: Fall. TECHNIQUE: Unenhanced helical CT of the head was performed per standard departmental protocol. Coronal and sagittal reformats of the head were also evaluated. One or more of the following techniques was used for dose reduction: Automated exposure control, adjustment of the mA and/or kV according to patient size, use of iterative reconstruction technique. DLP: 771.01 mGy-cm COMPARISON: There are no prior studies for comparison. FINDINGS: BRAIN: The brain parenchyma is unremarkable. There is normal nevarez/white differentiation. The ventricular system is normal in size and configuration. There is no mass effect or midline shift. No intra- or extra-axial fluid collections are identified. SINUSES: There is mucosal thickening in the bilateral maxillary sinuses. The mastoid air cells and middle ear cavities are well pneumatized. ORBITS: The visualized orbits are unremarkable. BONES/SOFT TISSUES: The extracranial soft tissues are unremarkable. The calvarium is intact. No suspicious lytic or sclerotic lesions. CT/CT head/brain wo IV con IMPRESSION: Unremarkable unenhanced head CT. Electronically signed by: Otoniel Kent MD 10/21/2024 03:22 PM [facility]
--- NOTE | ~2024-10-21 | XR_ITS ---
EXAMINATION: XR KNEE 3 VIEWS RIGHT HISTORY: Fall COMPARISON: There are no prior studies available for comparison. FINDINGS: Four views of the right knee are submitted. Osseous mineralization is normal. There is an osseous density adjacent to the medial femoral condyle which may represent a fracture fragment. There is no dislocation. The joint spaces are preserved. There is a moderate suprapatellar joint effusion. XR/XR knee RT 3V IMPRESSION: Moderate joint effusion. Possible fracture fragment adjacent to the medial femoral condyle. Clinical correlation is recommended. Electronically signed by: Otoniel Kent MD 10/21/2024 12:10 PM [facility]
--- NOTE | ~2024-10-21 | CT_ITS ---
EXAMINATION: CT ANGIOGRAM CHEST CLINICAL INFORMATION: Metastatic neuroendocrine tumor. COMPARISON: CT dated December 27, 2022. TECHNIQUE: Multiple axial images were obtained through the chest after the administration of 65 mL of Omnipaque 350 intravenous contrast. Extensive vascular post-processing including two-dimensional and three-dimensional reformatted images were created and reviewed on an independent workstation. SmartPrep technique. This CT examination was performed using dose optimization techniques as appropriate, variously including the following: *Automated exposure control *Adjustment of mA and/or kV according to patient size (this includes techniques or standardized protocols for targeted exams where dose is matched to indication/reason for exam; i.e. extremities or head) *Use of iterative reconstruction technique DLP: 502.88 mGy centimeter. FINDINGS: No acute intraluminal filling defects within the main pulmonary artery or its main branches. No gross aneurysm or dissection, thoracic aorta. There is a 4.6 cm masslike lesion right pretracheal region. Calcified plaques in the coronary arteries and thoracic aorta. Confluent attenuation with air bronchograms in the medial right upper lung. There are 3.1 and 2 cm lymphadenopathy in the anterior inferior mediastinum just anterior to the pericardium. No pleural effusion. No pneumothorax. Respiratory airways is patent. No pericardial effusion. Sclerotic lesion at T7. Multilevel thoracic spondylosis without acute fracture or gross listhesis. Nodularity and soft tissue fullness both adrenal glands. There is a nodularity soft tissue fullness of the posterior inferior left hepatic lobe. Calcified plaque in the splenic artery. CT/CT angio chest PE protocol IMPRESSION: No acute pulmonary artery emboli. Mediastinal lymphadenopathy. Soft tissue fullness without nodularity both adrenal glands suggesting tumor infiltration. Concerning lesion/mass in the posterior inferior left hepatic lobe. Overall smaller mediastinal mass although larger lymphadenopathy in the anterior inferior mediastinum and questionable lesion in the posterior inferior left hepatic lobe. Overall larger tumor infiltration in the adrenal glands. Fleischner guidelines were followed. Electronically signed by: Edenilson Gastelum MD 10/21/2024 03:32 PM RICKI
--- NOTE | ~2024-10-21 | CT_ITS ---
EXAMINATION: CT CERVICAL SPINE WITHOUT IV CONTRAST HISTORY: Fall. TECHNIQUE: Helical CT of the cervical spine was performed per standard departmental protocol. Coronal and sagittal reformatted images were also evaluated. One or more of the following techniques was used for dose reduction: Automated exposure control, adjustment of the mA and/or kV according to patient size, use of iterative reconstruction technique. DLP: 673.70 mGy-cm COMPARISON: Comparison is made with the prior CT of the neck dated 11/08/2022. FINDINGS: CERVICAL SPINE: The vertebral bodies maintain normal height and alignment without evidence of fracture or subluxation. There is diffuse mild degenerative disc disease with disc space narrowing and osteophyte formation. Evaluation for disc pathology is limited by lack of intrathecal contrast material, however. BRAIN: The visualized portion of the brain is unremarkable. SINUSES: The visualized paranasal sinuses, mastoid air cells and middle ear cavities are unremarkable. LUNG APICES: The visualized lung apices are clear. SOFT TISSUES: There are enlarged supraclavicular lymph nodes on the right measuring up to 3.0 cm in size. There is a partially visualized right paratracheal mass measuring 2.[address]/CT cervical spine wo IV con IMPRESSION: 1. No evidence of fracture or malalignment of the cervical spine. 2. Right supraclavicular lymphadenopathy. Partially visualized right paratracheal mass. Please see CTA of the chest report dictated separately. Electronically signed by: Otoniel Kent MD 10/21/2024 03:28 PM RICKI
--- NOTE | ~2024-10-21 | XR_ITS ---
EXAMINATION: XR ANKLE, RIGHT CLINICAL INFORMATION: Fall COMPARISON: None available. TECHNIQUE: AP, lateral, and mortise views of the right ankle. FINDINGS: There is a subtle fracture, nondisplaced, of the lateral malleolus. Severe 60 and obliquely into the metaphysis. No additional fracture is evident. Medial malleolus, posterior malleolus, and talar dome intact. The calcaneus is intact. The tarsal bones are intact. Mortise is intact and preserved. The talar dome is normal. There is a small joint effusion on the lateral radiograph. There is lateral soft tissue swelling. XR/XR ankle RT min 3V IMPRESSION: 1. Subtle essentially nondisplaced lateral malleolar fracture. Intact syndesmosis, and mortise. Electronically signed by: Tiburcio Antonio MD 10/21/2024 12:10 PM RICKI DOAN
[2024-10-21 10:24] VITALS: BP 116/80; BP 122/65; PULSE 78; PULSE 82; RESP 16; TEMP 36.7; O2SAT 95; O2SAT 96; BMI 34.3
--- NOTE | 2024-10-21 10:25 | ECG_ITS ---
Test Reason : Screening Blood Pressure : */* mmHG Vent. Rate : 78 BPM Atrial Rate : 78 BPM P-R Int : 152 ms QRS Dur : 90 ms QT Int : 372 ms P-R-T Axes : 25 27 61 degrees QTcB Int : 424 ms Sinus rhythm with Premature atrial complexes Low voltage QRS Nonspecific ST and T wave abnormality Abnormal ECG When compared with ECG of 23-May-2024 16:26, Premature atrial complexes are now Present ST no longer depressed in Lateral leads Referred By: Dayanara Rapp Electronically Signed By: LAWRENCE HOWARD MD
--- NOTE | 2024-10-21 10:45 | ED_ITS ---
HPI - General Adult General Chief complaint: Syncope Stated complaint: SYNCOPE W/FALL T-1,RLE PAIN PER EMS Time Seen by Provider: 10/21/24 10:24 History of Present Illness ED Provider: Dr. 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 Cassidy at [facility]) previously treated with resection, last radiation approx 2 years ago, severe coronary calcifications on CT scan; presents from home with report of syncopal episode yesterday (10/20/2024). The patient states he passed out from standing. He states he stood up from sitting to help his dogs when he had a significant coughing spell and then felt himself pass out. Both legs bent awkwardly but right more than left. He is now reporting right knee/ankle pain. EMS provided Fentanyl 100mcg prior to arrival. Related Data Home Medications ?Medication ?Instructions ?Recorded ?Confirmed lorazepam 1 mg tablet 1 mg PO BEDTIME PRN 02/01/23 11/27/23 sildenafil 50 mg tablet mg PO 04/21/23 11/27/23 Previous Rx's ?Medication ?Instructions ?Recorded gabapentin 100 mg capsule 100 mg PO TID PRN Pain (Scale 12/27/22 Score 4-6) #30 caps atorvastatin 80 mg tablet 80 mg PO QPM #30 tabs 12/27/23 metoprolol succinate 25 mg 25 mg PO DAILY #30 tabs 05/23/24 tablet,extended release 24 hr Allergies Allergy/AdvReac Type Severity Reaction Status Date / Time No Known Allergies Allergy Verified 10/21/24 10:35 Review of Systems 2 Review of Systems: Yes all other systems are reviewed and are negative [facility] Past Medical History Attestation statement: The following information was validated with the patient. Source: old records reviewed Medical History Cancer Morbidly obese Excessive daytime sleepiness MARIKA (obstructive sleep apnea) Obesity (BMI 30-39.9) Family History Family History Mother Breast cancer Diabetes Father No problems noted. Social History Social History Alcohol intake: never Patient Tobacco Use Status: Never used Tobacco Smoked in Last 30 Days: No Use of substances other than those prescribed or required for medical reasons: No Advance Directives: No Advance Directives Information Provided: Yes Current occupational status: employed Current occupation: [employer], right hand dominant Physical Exam ED Vital Signs: Vital Signs - 24 hr 10/21/24 10:24 10/21/24 11:55 10/21/24 15:42 Temperature 98.1 F Pulse Rate 78 72 Respiratory Rate 16 14 Blood Pressure 122/65 106/60 Pulse Oximetry 95 99 95 Oxygen Delivery Method Room Air Room Air Room Air BMI result Body Mass Index 34.3 Patient is afebrile and hemodynamically stable. Const General: cooperative and no acute distress HENMT Head: Yes normal to inspection and Yes atraumatic Eyes General: appearance normal, both eyes and all related structures Pupils: Equal, round and reactive pupils present EOM: EOMs intact bilaterally Neck Neck: Yes normal visual inspection, Yes full ROM, Yes supple and No tender Chest Chest palpation & inspection: normal inspection of the chest and normal palpation of entire chest wall Resp Effort & Inspection: normal respiratory effort, able to speak in complete sentences, no cough and no respiratory distress Auscultation: clear to auscultation bilaterally Cardio Rate: regular rate Rhythm: regular rhythm Peripheral pulses: Peripheral pulses 2+ throughout GI Inspection: Yes normal to inspection, No Abdominal wall edema and No distended Palpation (GI): Soft to palpation, not firm, nontender, no guarding and not rigid Auscultation: normal bowel sounds Back/Spine/Pelvis Back: No back tenderness Neuro Cranial nerves: Yes Equal, round and reactive pupils present Course Course Course Narrative: Patient is afebrile and hemodynamically stable. Will obtain EKG and laboratory studies. Will obtain CT Head/Neck given syncopal episode, CTA Chest to r/o PE given syncope with known malignancy not on anticoagulation, and XR RLE Knee/Ankle. Following results with speak with patient's oncologist. Reevaluation(s) Reevaluation #1: Patient is influenza positive. Labs reviewed. Mild leukopenia 3.8. Likely in the setting of known influenza. Hyperglycemia without DKA or HHS. XR Right Ankle with subtle, nondisplaced fx of the lateral malleolus. XR Right Knee with moderate joint effusion and possible fracture adjacent to the medial femoral condyle. Added CT Right Knee. CT Head unremarkable. CT Cervical Spine unremarkable. CT Right Knee: Avulsion fx from the medial femoral insertion of the MCL with MCL strain injury. CTA Chest without pulmonary emboli, known metastatic disease. I did place a page out to patient's oncologist but did not hear back. Patient has appointment for Monday already scheduled in 2 days time. I provided him copies for his CT reports to review with his oncologist. I also provided orthopedic follow up. Plan: Discharge to home with PCP, Oncology, Orthopedic follow up Return precautions given Medications Administered Discontinued Medications Generic Name Dose Route Start Last Admin Trade Name Freq PRN Reason Stop Dose Admin Acetaminophen 975 mg 10/21/24 15:23 10/21/24 15:59 Acetaminophen 325 Mg Tablet PO 10/21/24 15:24 975 mg ONCE ONE Administration Sodium Chloride 1,000 mls @ 999 mls/hr 10/21/24 12:30 10/21/24 14:56 Ns IV 10/21/24 13:30 Infused .Q1H1M SHANDRA Infusion Iohexol 100 ml 10/21/24 15:05 10/21/24 15:05 Iohexol 350 Mg/Ml 100 Ml Infus..Btl IV 10/21/24 15:06 65 ml ONCE ONE Administration Ketorolac Tromethamine 15 mg 10/21/24 12:24 10/21/24 13:09 Ketorolac Tromethamine 15 Mg/Ml Vial IVPUSH 10/21/24 12:25 15 mg ONCE ONE Administration Medical Decision Making Lab Data 10/21/24 12:58 10/21/24 12:58 Labs: Lab Results 10/21/24 10/21/24 Range/Units 11:12 12:58 WBC 3.8 L (4.8-10.8) X10*3/uL RBC 4.47 L (4.60-5.80) X10*6/uL Hgb 13.4 L (14.0-18.0) g/dl Hct 40.5 L (42.0-52.0) % MCV 90.6 (80.0-98.0) fL MCH 30.0 (27.0-33.0) pg MCHC 33.1 (31.0-36.0) g/dl RDW 13.6 (11.0-16.0) % Plt Count 266 (160-400) X10*3/uL MPV 9.3 L (9.4-12.4) fL Immature Gran % (Auto) 0.5 H (0.0-0.4) % Neut % (Auto) 64.2 (45-73) % Lymph % (Auto) 21.6 (20-40) % Power % (Auto) 9.5 (2-11) % Eos % (Auto) 3.7 (0-4) % Baso % (Auto) 0.5 (0-2) % Lymph # (Auto) 0.8 L (1.2-4.9) X10*3/uL Power # (Auto) 0.4 (0.1-1.2) X10*3/uL Eos # (Auto) 0.1 (0.0-0.4) X10*3/uL Baso # (Auto) 0.0 (0.0-0.2) X10*3/uL Abs Immat Gran (auto) 0.02 (0.00-0.03) X10*3/uL Absolute Neuts (auto) 2.4 (2.0-8.3) x10*3/uL Absolute Nucleated RBC 0.000 (0.0-0.012) X10*3/uL Nucleated RBC % (auto) 0.0 (0.0-0.2) /100WBC Sodium 136 (135-145) mmol/L Potassium 4.2 (3.3-5.1) mmol/L Chloride 102 (96-108) mmol/L Carbon Dioxide 26 (22-29) mmol/L Anion Gap 12 (12-20) BUN 10 (9-16) mg/dL Creatinine 0.83 (0.5-1.4) mg/dL Estim Creat Clear Calc 132.1 Estimated GFR > 60 Random Glucose 305 H (60-115) mg/dL Estimat Average Glucose 324 mg/dL Hemoglobin A1c % 12.9 H (<6.0) % Calcium 9.2 (8.4-10.2) mg/dL Total Bilirubin 0.7 (0.0-1.0) mg/dL Direct Bilirubin 0.2 (0.0-0.5) mg/dL AST 24 (5-37) U/L ALT 17 (0-40) U/L Alkaline Phosphatase 96 (39-117) U/L Troponin I High Sens 6.7 D (<3.5-35.0) ng/L Total Protein 7.8 (6.5-8.0) g/dL Albumin 3.7 (3.5-5.0) g/dL Lipase 29 (8-78) U/L Influenza Type A (PCR) POSITIVE A (Negative) Influenza Type B (PCR) NEGATIVE (Negative) RSV RNA Qual (PCR) NEGATIVE (Negative) SARS-CoV-2 RNA (RT-PCR) NEGATIVE (Negative) Radiology Impression Discussion of test interpretation with radiology: I have reviewed the radiologist's reading. Radiologist Impression: EXAMINATION: XR KNEE 3 VIEWS RIGHT HISTORY: Fall COMPARISON: There are no prior studies available for comparison. FINDINGS: Four views of the right knee are submitted. Osseous mineralization is normal. There is an osseous density adjacent to the medial femoral condyle which may represent a fracture fragment. There is no dislocation. The joint spaces are preserved. There is a moderate suprapatellar joint effusion. XR/XR knee RT 3V IMPRESSION: Moderate joint effusion. Possible fracture fragment adjacent to the medial femoral condyle. Clinical correlation is recommended. Electronically signed by: Otoniel Kent MD 10/21/2024 12:10 PM [email or web address] EXAMINATION: XR ANKLE, RIGHT CLINICAL INFORMATION: Fall COMPARISON: None available. TECHNIQUE: AP, lateral, and mortise views of the right ankle. FINDINGS: There is a subtle fracture, nondisplaced, of the lateral malleolus. Severe 60 and obliquely into the metaphysis. No additional fracture is evident. Medial malleolus, posterior malleolus, and talar dome intact. The calcaneus is intact. The tarsal bones are intact. Mortise is intact and preserved. The talar dome is normal. There is a small joint effusion on the lateral radiograph. There is lateral soft tissue swelling. XR/XR ankle RT min 3V IMPRESSION: 1. Subtle essentially nondisplaced lateral malleolar fracture. Intact syndesmosis, and mortise. Electronically signed by: Tiburcio Antonio MD 10/21/2024 12:10 PM EST RP Report Number: [id number]: Total DLP = 0.00 mGy-cm EXAMINATION: CT HEAD WITHOUT IV CONTRAST HISTORY: Fall. TECHNIQUE: Unenhanced helical CT of the head was performed per standard departmental protocol. Coronal and sagittal reformats of the head were also evaluated. One or more of the following techniques was used for dose reduction: Automated exposure control, adjustment of the mA and/or kV according to patient size, use of iterative reconstruction technique. DLP: 771.01 mGy-cm COMPARISON: There are no prior studies for comparison. FINDINGS: BRAIN: The brain parenchyma is unremarkable. There is normal nevarez/white differentiation. The ventricular system is normal in size and configuration. There is no mass effect or midline shift. No intra- or extra-axial fluid collections are identified. SINUSES: There is mucosal thickening in the bilateral maxillary sinuses. The mastoid air cells and middle ear cavities are well pneumatized. ORBITS: The visualized orbits are unremarkable. BONES/SOFT TISSUES: The extracranial soft tissues are unremarkable. The calvarium is intact. No suspicious lytic or sclerotic lesions. CT/CT head/brain wo IV con IMPRESSION: Unremarkable unenhanced head CT. Electronically signed by: Otoniel Kent MD 10/21/2024 03:22 PM [facility] Report Number: [id number]: Total DLP = 197.00 mGy-cm EXAMINATION: CT KNEE WITHOUT CONTRAST, RIGHT CLINICAL INFORMATION: Questionable fracture on x-ray. Joint effusion. COMPARISON: No prior CT. Right knee radiographs earlier same day. TECHNIQUE: Spiral CT examination of the right knee in axial plane without contrast. Multiplanar reformatted imaging obtained from the axial data set. This CT examination was performed using dose optimization techniques as appropriate, variously including the following: *Automated exposure control *Adjustment of mA and/or kV according to patient size (this includes techniques or standardized protocols for targeted exams where dose is matched to indication/reason for exam; i.e. extremities or head) *Use of iterative reconstruction technique FINDINGS: Small avulsion fracture arising from the medial femoral condyle at the expected insertion of the MCL. No additional fracture. No malalignment. No suspicious bone lesion. Bone island in the medial femoral condyle subarticular region . Mild tricompartmental osteoarthritis. Thickening of the MCL, suggesting strain injury. Extensor mechanism intact. Cannot assess for LCL, cruciate ligament, or meniscal tear on CT exam. Large suprapatellar joint effusion present. CT/CT knee RT wo IV con IMPRESSION: 1. Avulsion fracture arising from the medial femoral insertion of the MCL. MCL strain injury. 2. No additional fracture or malalignment. 3. Large joint effusion Electronically signed by: Tiburcio Antonio MD 10/21/2024 03:25 PM EST RP Report Number: [id number]: Total DLP = 1794.00 mGy-cm EXAMINATION: CT CERVICAL SPINE WITHOUT IV CONTRAST HISTORY: Fall. TECHNIQUE: Helical CT of the cervical spine was performed per standard departmental protocol. Coronal and sagittal reformatted images were also evaluated. One or more of the following techniques was used for dose reduction: Automated exposure control, adjustment of the mA and/or kV according to patient size, use of iterative reconstruction technique. DLP: 673.70 mGy-cm COMPARISON: Comparison is made with the prior CT of the neck dated 11/08/2022. FINDINGS: CERVICAL SPINE: The vertebral bodies maintain normal height and alignment without evidence of fracture or subluxation. There is diffuse mild degenerative disc disease with disc space narrowing and osteophyte formation. Evaluation for disc pathology is limited by lack of intrathecal contrast material, however. BRAIN: The visualized portion of the brain is unremarkable. SINUSES: The visualized paranasal sinuses, mastoid air cells and middle ear cavities are unremarkable. LUNG APICES: The visualized lung apices are clear. SOFT TISSUES: There are enlarged supraclavicular lymph nodes on the right measuring up to 3.0 cm in size. There is a partially visualized right paratracheal mass measuring 2.[address]/CT cervical spine wo IV con IMPRESSION: 1. No evidence of fracture or malalignment of the cervical spine. 2. Right supraclavicular lymphadenopathy. Partially visualized right paratracheal mass. Please see CTA of the chest report dictated separately. Electronically signed by: Otoniel Kent MD 10/21/2024 03:28 PM EST RP EXAMINATION: CT ANGIOGRAM CHEST CLINICAL INFORMATION: Metastatic neuroendocrine tumor. COMPARISON: CT dated December 27, 2022. TECHNIQUE: Multiple axial images were obtained through the chest after the administration of 65 mL of Omnipaque 350 intravenous contrast. Extensive vascular post-processing including two-dimensional and three-dimensional reformatted images were created and reviewed on an independent workstation. SmartPrep technique. This CT examination was performed using dose optimization techniques as appropriate, variously including the following: *Automated exposure control *Adjustment of mA and/or kV according to patient size (this includes techniques or standardized protocols for targeted exams where dose is matched to indication/reason for exam; i.e. extremities or head) *Use of iterative reconstruction technique DLP: 502.88 mGy centimeter. FINDINGS: No acute intraluminal filling defects within the main pulmonary artery or its main branches. No gross aneurysm or dissection, thoracic aorta. There is a 4.6 cm masslike lesion right pretracheal region. Calcified plaques in the coronary arteries and thoracic aorta. Confluent attenuation with air bronchograms in the medial right upper lung. There are 3.1 and 2 cm lymphadenopathy in the anterior inferior mediastinum just anterior to the pericardium. No pleural effusion. No pneumothorax. Respiratory airways is patent. No pericardial effusion. Sclerotic lesion at T7. Multilevel thoracic spondylosis without acute fracture or gross listhesis. Nodularity and soft tissue fullness both adrenal glands. There is a nodularity soft tissue fullness of the posterior inferior left hepatic lobe. Calcified plaque in the splenic artery. CT/CT angio chest PE protocol IMPRESSION: No acute pulmonary artery emboli. Mediastinal lymphadenopathy. Soft tissue fullness without nodularity both adrenal glands suggesting tumor infiltration. Concerning lesion/mass in the posterior inferior left hepatic lobe. Overall smaller mediastinal mass although larger lymphadenopathy in the anterior inferior mediastinum and questionable lesion in the posterior inferior left hepatic lobe. Overall larger tumor infiltration in the adrenal glands. Fleischner guidelines were followed. Electronically signed by: Edenilson Gastelum MD 10/21/2024 03:32 PM EST RP Discharge Plan Discharge Clinical Impression: Femur fracture, right, Closed right fibular fracture, Syncope, Influenza A Patient Disposition: Home, Self-Care Instructions: Leg Fracture (ED) Additional Instructions: You tested positive for influenza today. Please follow up with the orthopedic doctor within the next 1 week. You can use 400mg Ibuprofen and 1g tylenol every 6 hours as needed for pain. Follow up with your oncology doctor as planned Monday. Return to the emergency department with: Any further episodes of passing out, chest pain, difficulty breathing EXAMINATION: CT ANGIOGRAM CHEST CLINICAL INFORMATION: Metastatic neuroendocrine tumor. COMPARISON: CT dated December 27, 2022. TECHNIQUE: Multiple axial images were obtained through the chest after the administration of 65 mL of Omnipaque 350 intravenous contrast. Extensive vascular post-processing including two-dimensional and three-dimensional reformatted images were created and reviewed on an independent workstation. SmartPrep technique. This CT examination was performed using dose optimization techniques as appropriate, variously including the following: *Automated exposure control *Adjustment of mA and/or kV according to patient size (this includes techniques or standardized protocols for targeted exams where dose is matched to indication/reason for exam; i.e. extremities or head) *Use of iterative reconstruction technique DLP: 502.88 mGy centimeter. FINDINGS: No acute intraluminal filling defects within the main pulmonary artery or its main branches. No gross aneurysm or dissection, thoracic aorta. There is a 4.6 cm masslike lesion right pretracheal region. Calcified plaques in the coronary arteries and thoracic aorta. Confluent attenuation with air bronchograms in the medial right upper lung. There are 3.1 and 2 cm lymphadenopathy in the anterior inferior mediastinum just anterior to the pericardium. No pleural effusion. No pneumothorax. Respiratory airways is patent. No pericardial effusion. Sclerotic lesion at T7. Multilevel thoracic spondylosis without acute fracture or gross listhesis. Nodularity and soft tissue fullness both adrenal glands. There is a nodularity soft tissue fullness of the posterior inferior left hepatic lobe. Calcified plaque in the splenic artery. CT/CT angio chest PE protocol IMPRESSION: No acute pulmonary artery emboli. Mediastinal lymphadenopathy. Soft tissue fullness without nodularity both adrenal glands suggesting tumor infiltration. Concerning lesion/mass in the posterior inferior left hepatic lobe. Overall smaller mediastinal mass although larger lymphadenopathy in the anterior inferior mediastinum and questionable lesion in the posterior inferior left hepatic lobe. Overall larger tumor infiltration in the adrenal glands. Prescriptions: No Action atorvastatin 80 mg tablet 80 mg PO QPM Qty: 30 5RF Rx Instructions: New dose 80 mg metoprolol succinate 25 mg tablet extended release 24 hr 25 mg PO DAILY Qty: 30 0RF gabapentin 100 mg capsule 100 mg PO TID PRN (Reason: Pain (Scale Score 4-6)) Qty: 30 0RF lorazepam 1 mg tablet 1 mg PO BEDTIME PRN sildenafil 50 mg tablet PO Referrals: John Hess MD [Physician] - 1 week Print Language: Romansh
[2024-10-21 11:55] VITALS: O2SAT 99
[2024-10-21 11:56] LABS: Influenza A PCR POSITIVE (Negative); Influenza B PCR NEGATIVE (Negative); Resp Syncy Virus RNA Qual PCR NEGATIVE (Negative); SARS COV2 PCR INHOUSE NEGATIVE (Negative)
[2024-10-21 13:05] LABS: MANUAL DIFF FLAG NO
[2024-10-21 13:06] LABS: Basophils Percent Auto 0.5 % (0-2); Eosinophils Absolute Auto 0.1 X10*3/uL (0.0-0.4); Eosinophils Percent Auto 3.7 % (0-4); Hematocrit 40.5 % (42.0-52.0); Hemoglobin 13.4 g/dl (14.0-18.0); Imm Gran Abs Auto 0.02 X10*3/uL (0.00-0.03); Imm Gran Pct Auto 0.5 % (0.0-0.4); Lymphocytes Absolute Auto 0.8 X10*3/uL (1.2-4.9); Lymphocytes Percent Auto 21.6 % (20-40); Mean Corpuscular HGB Conc 33.1 g/dl (31.0-36.0); Mean Corpuscular Volume 90.6 fL (80.0-98.0); Mean Platelet Volume 9.3 fL (9.4-12.4); Monocytes Absolute Auto 0.4 X10*3/uL (0.1-1.2); Monocytes Percent Auto 9.5 % (2-11); Neutrophils Absolute Auto 2.4 x10*3/uL (2.0-8.3); Neutrophils Percent Auto 64.2 % (45-73); Platelet Count 266 X10*3/uL (160-400); Red Blood Count 4.47 X10*6/uL (4.60-5.80); Red Cell Distribution Width 13.6 % (11.0-16.0); White Blood Count 3.8 X10*3/uL (4.8-10.8)
[2024-10-21] MEDS: Ketorolac Tromethamine 15 MG/ML VIAL IVPUSH (13:09)
[2024-10-21] MEDS: 0.9 % Sodium Chloride 1,000 ML 999 ML IV (13:09)
[2024-10-21 13:24] LABS: Alanine Aminotransferase 17 U/L (0-40); Albumin Level 3.7 g/dL (3.5-5.0); Alkaline Phosphatase 96 U/L (39-117); Anion Gap 12 (12-20); Aspartate Amino Transferase 24 U/L (5-37); Bilirubin Direct 0.2 mg/dL (0.0-0.5); Bilirubin Total 0.7 mg/dL (0.0-1.0); Blood Urea Nitrogen 10 mg/dL (9-16); Calcium 9.2 mg/dL (8.4-10.2); Carbon Dioxide 26 mmol/L (22-29); Chloride 102 mmol/L (96-108); Creatinine Clr Calc Pharmacy 132.1; Estimated Glomerular Filt Rate > 60; Glucose Random 305 mg/dL (60-115); Lipase 29 U/L (8-78); Potassium 4.2 mmol/L (3.3-5.1); Sodium 136 mmol/L (135-145); Total Protein 7.8 g/dL (6.5-8.0)
[2024-10-21 13:32] LABS: Troponin-I High Sensitivity 6.7 ng/L (<3.5-35.0)
[2024-10-21] MEDS: iohexoL 350 MG/ML 100 ML INFUS..BTL IV (15:05)
[2024-10-21 15:42] VITALS: BP 106/60; PULSE 72; RESP 14; O2SAT 95
[2024-10-21] MEDS: Acetaminophen 325 MG TABLET 975 MG PO (15:59)
[2024-10-21 16:09] LABS: Estimated Average Glucose 324 mg/dL; Hemoglobin A1C 409.4538 umol/L; Hemoglobin A1c % 12.9 % (<6.0); Total Hemoglobin (HGBA1C) 3490.7353 umol/L
[2024-10-21 17:05] VITALS: BP 106/60; PULSE 72; RESP 14; TEMP 35.9; O2SAT 95
[2024-10-21 17:19] VITALS: BP 106/60; PULSE 72; RESP 14; TEMP 35.9; O2SAT 95
--- NOTE | 2024-10-22 09:08 | PC.NURSE ---
Ann from [facility] oncology called back returning Dr Rahman call from yesterday. She was made aware of patients departure from ED to home and need for follow up with Oncologist tomorrow as scheduled
== END 2024-10-21 17:40 | disposition home or self-care (01) ==
PROVIDERS: Emergency Provider Emergency Medicine; PCP Internal Medicine
DX: J10.1 Influenza due to other identified influenza virus with other respiratory manifestations (principal); R55 Syncope and collapse; S82.51XA Displaced fracture of medial malleolus of right tibia, initial encounter for closed fracture; S82.64XA Nondisplaced fracture of lateral malleolus of right fibula, initial encounter for closed fracture; W18.30XA Fall on same level, unspecified, initial encounter; Y93.9 Activity, unspecified; Y92.9 Unspecified place or not applicable; Y99.9 Unspecified external cause status; R05.9 Cough, unspecified; Z03.818 Encounter for observation for suspected exposure to other biological agents ruled out; R59.1 Generalized enlarged lymph nodes; C7B.8 Other secondary neuroendocrine tumors
CPT/HCPCS: 0241U; 36415; 70450; 71275; 72125; 73562; 73610; 73700; 80048; 80076; 83036; 83690; 84484; 85025; 93005; 96361; 96374; 99285; J1885; Q9967

== ENCOUNTER → 2024-10-21 10:25 | Outpatient (BNV) | payer OTHER, SELFPAY | PROVIDERS: Emergency Provider Emergency Medicine; PCP Internal Medicine; Visit Provider Internal Medicine Cardiovascular Disease | DX: I49.1 Atrial premature depolarization (principal) | CPT/HCPCS: 93010 ==

== ENCOUNTER → 2024-10-21 10:55 | Outpatient (BNV) | payer OTHER, SELFPAY | PROVIDERS: Emergency Provider Emergency Medicine; PCP Internal Medicine; Visit Provider Radiology Diagnostic Radiology | DX: R55 Syncope and collapse (principal); M25.571 Pain in right ankle and joints of right foot; M25.561 Pain in right knee | CPT/HCPCS: 70450; 71275; 72125; 73562; 73610; 73700 ==

== ENCOUNTER 2024-11-20 09:00 | Outpatient (AMB) | payer OTHER, SELFPAY ==
--- NOTE | 2024-11-20 09:01 | A.OFFPC_ITS ---
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: No Accompanied by: Self / Same As Patient Allergies No Known Allergies Allergy (Verified 11/20/24 09:01) Tobacco use date assessed: 11/20/24 Dental Screening Dental Screen Date: 11/20/24 Did you have a dental visit in the last 12 months?: Yes Did you have a dental problem in the last 6 months where you did not have access to dental care?: No [facility] Medical History (Updated 11/20/24 @ 09:23 by Brendon Joel MD) Diabetes mellitus Cancer Morbidly obese Excessive daytime sleepiness MARIKA (obstructive sleep apnea) Obesity (BMI 30-39.9) Family History Mother Breast cancer Diabetes Father No problems noted. 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 1. Little interest or pleasure in doing things: not at all 2. Feeling down, depressed, or hopeless: not at all 3. Trouble falling or staying asleep, or sleeping too much: not at all 4. Feeling tired or having little energy: not at all 5. Poor appetite or overeating: not at all 6. Feeling bad about yourself - or that you are a failure or have let yourself or your family down: not at all 7. Trouble concentrating on things, such as reading the newspaper or watching television: not at all 8. Moving or speaking so slowly that other people could have noticed. Or the opposite - being so fidgety or restless that you have been moving around a lot more than usual: not at all 9. Thoughts that you would be better off or of hurting yourself in some way: not at all Total score: 0 Source: Developed by Drs. Otoniel Gray, Marvin Baldwin and colleagues, with an educational soraida from [employer]. Thrive Questionnaire Date Thrive assessed: 11/20/24 I am a: Patient What is your living situation today?: I have a steady place to live Within the past 12 months, did the food you bought not last and you didn't have the money to get more?: Never true Within the past 12 months, did you worry whether your food would run out before you got money to buy more?: Never true Do you have trouble paying for medicines?: No Do you have trouble getting transportation to medical appointments?: No Do you have trouble paying your heating and electricity bill?: No Do you have trouble taking care of your child, family member or friend?: No Do you have trouble with day-to-day activities such as bathing, preparing meals, shopping, managing finances, etc.?: No Are you currently unemployed and looking for a job?: No Are you interested in more education?: No THRIVE Score: 0 AUDIT C Alcohol Use Questionnaire (AUDIT-C) 1. How often do you have a drink containing alcohol?: Never 3. How often do you have six or more drinks on one occasion?: Never Total Score: 0 TOR-7 AMB Questionnaire TOR-7 Date TOR - 7 assessed: 11/20/24 Feeling nervous, anxious, or on edge: 0 = Not at all Not being able to stop or control worryin = Not at all Worrying too much about different things: 0 = Not at all Trouble relaxin = Not at all Being so restless that it is hard to sit still: 0 = Not at all Becoming easily annoyed or irritable: 0 = Not at all Feeling afraid as if something awful might happen: 0 = Not at all Total TOR-7 score (0-4 normal; 5-9 mild; 10-14 moderate; 15-21 severe): 0 Source: Developed by Drs. Otoniel Gray, Marvin Baldwin and colleagues, with an educational soraida from [employer]. Physical exam (Primary Care) Vital Signs: Last Vital Signs Temp 97.5 F 11/20/24 09:02 Pulse 72 11/20/24 09:02 Resp 14 11/20/24 09:02 BP 136/80 11/20/24 09:02 Pulse Ox 99 11/20/24 09:02 Oxygen Delivery Method Room Air 11/20/24 09:02 BMI result Body Mass Index 33.1 Tobacco/Smoking Status: Tobacco use Status Tobacco use date assessed 11/20/24 11/20/24 09:09 Patient Tobacco Use Status Never used Tobacco 11/20/24 09:09 PHQ-9: PHQ-9 Score PHQ-9: Total score 0 11/20/24 09:09 Thrive Assessment: Date of Thrive Assessment Date Thrive assessed 11/20/24 11/20/24 09:09 Coding Level of Care Code New Pt Level 4 (76226) Complex EM visit Add On G2211 Diagnoses Diabetes mellitus E11.9 Assessment & Plan Assessment & Plan (1) Diabetes mellitus: Code(s): E11.9 - Type 2 diabetes mellitus without complications Category: Medical Plan: Metformin started, glucometer instructions given. Rpt A1c ordered. Recheck in three weeks Plan History of Present Illness The patient is a 59-year-old male presenting with Diabetes Mellitus, which was diagnosed following high blood sugar readings identified over recent months. The initial diagnosis was confirmed by a Hemoglobin A1c of 12.6%. The patient reports losing 30 pounds through diet adjustments, including meal restriction and intermittent fasting. 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 A past shingles outbreak was also discussed in relation to his current condition. The patient has a history of constipation, successfully managed with lactulose, and previously underwent a clear colonoscopy. 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 - Exercise: Engages in dietary modification and intermittent fasting - Diet: Practices two meals a day with intermittent fasting - Family: Has a son in the [place] and another in the [employer] - Injury: Previous fall resulting in ankle and knee injury - Activity: Currently not back to work due to injury recovery Review of Systems - Neurological: Reports numbness of the left side of the tongue - Gastrointestinal: Reports prior constipation, now managed with lactulose Physical Exam General: Cooperative and healthy appearing Nutritional Appearance: Well nourished Orientation/consciousness: Patient oriented x3 Limitations: No limitations Head: Normal to inspection General: Appearance normal, both eyes and all related structures Neck: Normal visual inspection Chest: Normal palpation of entire chest wall Respiratory: Normal respiratory effort Neurology: Patient oriented x3 Results - Labs: Hemoglobin A1c 12.6% - Imaging: MRI showing neuroendocrine tumor involving skull bone Plan For Diabetes Mellitus, I initiated metformin therapy, starting with one tablet daily and then increasing to twice daily, monitoring for gastrointestinal side effects. A glucometer was prescribed for home monitoring of blood glucose levels. I plan to follow up in three weeks to reassess blood glucose management and consider additional intervention if necessary. Repeat blood testing will be conducted to compare with September baselines. Constipation should resolve gradually, managed currently with lactulose. Follow-up monitoring for tumor management is under the care of the oncologist. Patient was informed and verbally consented to the use of an ambient scribe for clinic note documentation during this visit. Discussion Notes I discussed the diagnosis of Diabetes Mellitus with the patient, recommending initiation of metformin therapy, starting with a low dose. Potential side effects such as gastrointestinal discomfort were explained. I prescribed a glucometer for daily glucose tracking and stressed the importance of regular monitoring. We reviewed the plan to increase metformin to a two-tablet daily regimen after an initial adjustment period. I emphasized weight management and dietary control as pivotal measures in diabetes management. A follow-up appointment was scheduled for three weeks to evaluate treatment progress and efficacy. I addressed concerns regarding constipation, affirming the use of lactulose, and provided reassurance on his condition's current management. Patient Instructions - Start taking metformin as prescribed, once daily for three days, then increase to twice daily. - Monitor your blood glucose levels regularly using the glucometer and note the readings. - Continue taking lactulose as needed for constipation. - Follow your current dietary regimen to aid in diabetes management. - Return for a follow-up appointment in three weeks. - Contact the office if you experience any significant side effects from medication. - Repeat blood work will be needed as discussed. Medications: New metformin 500 mg PO BID 90 days 180 tabs 0RF
[2024-11-20 09:02] VITALS: BP 136/80; PULSE 72; RESP 14; TEMP 36.4; O2SAT 99; BMI 33.1
== END 2024-11-20 09:26 | disposition home or self-care (01) ==
LOC: HO.HMCHD 09:00
PROVIDERS: PCP Internal Medicine; Visit Provider Internal Medicine
DX: E11.9 Type 2 diabetes mellitus without complications (principal)

== ENCOUNTER 2024-12-16 14:36 | Outpatient (AMB) | payer OTHER, SELFPAY ==
[2024-12-16 14:48] VITALS: BP 118/60; PULSE 70; BMI 32.6
--- NOTE | 2024-12-16 14:48 | A.OFFVIS_ITS ---
Vital Signs 12/16/24 14:48 Height 6 ft 1 in Weight 247 lb BMI 32.6 BP 118/60 Blood Pressure Location Lt brachial Position Sitting Pulse 70 Pulse Source Pulse Oximeter Intake Visit Reasons: 1 yr f/up Allergies No Known Allergies Allergy (Verified 11/20/24 09:01) Medication List - Last Reconciled 12/16/24 by Can Jarrell MD blood-glucose,cooperative education director,cont (Dexcom G6 Security Shift Manager) As directed [Dexcom G6 glucose monitor As directed] [Dexcom G6 lancets As directed] Dexcom G6 Sensor (blood-glucose sensor) every 10 days NS [Dexcom G6 strips As directed] Dexcom G6 Transmitter (blood-glucose transmitter) As directed NS gabapentin 100 mg PO TID PRN lactulose 10 grams (15 mL) PO BEDTIME lorazepam 1 mg PO BEDTIME PRN metformin 500 mg PO BID 90 days miscellaneous medical supply Dexcom G6 Glucose meter HPI Comments Details: Shyam returns for follow-up. In the past, he was seen regarding coronary artery calcification on CT scan. He underwent a chest CT for noncardiac reasons and that showed coronary calcification. Patient himself does not have any history of coronary artery disease, myocardial infarction or cardiomyopathy. He is morbidly obese but he states that he is losing weight.. Dyslipidemia, not on statins. Otherwise, within limits of his activity has not had any symptoms like angina. 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 Getting treated at [facility]. REPLACED BY [facility] Medical History (Updated 11/20/24 @ 09:23 by Brendon Joel MD) Diabetes mellitus Cancer Morbidly obese Excessive daytime sleepiness MARIKA (obstructive sleep apnea) Obesity (BMI 30-39.9) Family History Mother Breast cancer Diabetes Father No problems noted. 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 Cognitive needs: No Hearing needs: No Vision needs: Yes Review of Systems Const Denies weakness ENT Denies dizziness Card Denies chest pain, Denies chest pain with activity, Denies syncope, Denies rapid heart rate, Denies pedal edema, Denies edema, Denies leg edema, Denies lightheadedness, Denies palpitations, Denies dyspnea, Denies dyspnea on exertion and Denies orthopnea Resp Denies cough, Denies dyspnea and Denies dyspnea on exertion GI Denies hematochezia and Denies change in stool character Musc Denies abnormal gait, Denies muscle cramps, Denies muscle weakness, Denies numbness, Denies radiating pain into limb and Denies tingling Neuro Denies abnormal gait, Denies dizziness, Denies syncope, Denies numbness, Denies tingling and Denies weakness Endo Denies palpitations Physical Exam Vital Signs: Last Vital Signs Pulse 70 12/16/24 14:48 BP 118/60 12/16/24 14:48 BMI result Body Mass Index 32.6 Const General: comfortable and no acute distress Orientation/consciousness: patient oriented x3 HEENT Other: Unremarkable Head: Yes normal to inspection Neck Neck: Yes normal visual inspection Chest Chest palpation & inspection: normal inspection of the chest Resp Auscultation: clear to auscultation bilaterally Cardio Palpation: normal PMI Heart sounds: S1 normal heart sound present, S2 normal heart sound present, no gallops, no murmurs and no rubs GI Palpation (GI): Soft to palpation Back/Spine/Pelvis Other: unremarkable Skin General skin exam: no rashes or lesions noted Neuro General: patient oriented x3 Extrem General: Yes normal to inspection Psych Mental Status: mental status grossly normal Assessment & Plan Assessment & Plan (1) CAD (coronary artery disease): Code(s): I25.10 - Atherosclerotic heart disease of [place] coronary artery without angina pectoris Category: Medical (2) Dilatation of aorta: Comment: Sinus of Valsalva Code(s): I77.819 - Aortic ectasia, unspecified site Category: Medical (3) Morbidly obese: Code(s): E66.01 - Morbid (severe) obesity due to excess calories Category: Medical Plan Cardiac studies reviewed. Chest CT scan in the past with description of three-vessel coronary artery calcifications. Ascending aortic size mention at 4.1 cm. However, a more recent chest CT scan reported have no aortic aneurysm. Echocardiogram with LVEF of 63%. No significant valvular issues. Sinus of Valsalva mildly dilated at 4.4 cm and ascending aorta 4 cm. Probably acceptable for his large body habitus. Myocardial perfusion imaging study probably normal, at 9.1 METS exercise capacity. Overall, stable coronary disease but no clinical angina. With regard to his obesity, it seems that he is already losing weight and that will immensely help. With regard to lipids, they are elevated but he has been reluctant to take statins. After lot of discussion, he is willing to consider it. We can recheck a lipid profile/LFTs. Then we can probably resume statins. Plan discussed with patient and he is agreeable. He will contact us with any ongoing concerns. Orders: Orders Lipid Panel Today E78.5 - Hyperlipidemia, unspecified, I25.10 - Atherosclerotic heart disease of [place] coronary artery without angina pectoris Liver Panel Today I25.10 - Atherosclerotic heart disease of [place] coronary artery without angina pectoris Coding Level of Care Code Est Pt Level 4 (01588) Diagnoses CAD (coronary artery disease) I25.10 Dilatation of aorta I77.819 Morbidly obese E66.01
== END 2024-12-16 15:20 | disposition home or self-care (01) ==
LOC: HO.HCS 14:36
PROVIDERS: PCP Internal Medicine; Visit Provider Internal Medicine
DX: I25.10 Atherosclerotic heart disease of native coronary artery without angina pectoris (principal); I77.819 Aortic ectasia, unspecified site; E66.01 Morbid (severe) obesity due to excess calories
CPT/HCPCS: 99214

== ENCOUNTER 2024-12-20 09:51 | Outpatient (REF) | payer OTHER, SELFPAY ==
[2024-12-20 11:21] LABS: Alanine Aminotransferase 25 U/L (0-40); Albumin Level 4.4 g/dL (3.5-5.0); Alkaline Phosphatase 78 U/L (39-117); Aspartate Amino Transferase 31 U/L (5-37); Bilirubin Direct 0.2 mg/dL (0.0-0.5); Bilirubin Total 0.6 mg/dL (0.0-1.0); Cholesterol 245 mg/dL (<200); HDL Cholesterol 40 mg/dL (>40); LDL Cholesterol Calculated 178 mg/dL (<100); Total Protein 8.1 g/dL (6.5-8.0); Triglycerides 137 mg/dL (<150)
== END 2024-12-20 09:52 | disposition home or self-care (01) ==
LOC: HO.10HDL 09:51
PROVIDERS: Visit Provider Internal Medicine
DX: E78.5 Hyperlipidemia, unspecified (principal); I25.10 Atherosclerotic heart disease of native coronary artery without angina pectoris
CPT/HCPCS: 36415; 80061; 80076

== ENCOUNTER 2024-12-25 13:19 | Outpatient (AMB) | payer OTHER, SELFPAY ==
[2024-12-25 13:24] VITALS: BP 126/80; PULSE 66; TEMP 36.2; O2SAT 99; BMI 33.2
--- NOTE | 2024-12-25 13:24 | MHC.PC.OV ---
Vital Signs 12/25/24 13:24 Height 6 ft 1 in Weight 252 lb BMI 33.2 BP 126/80 Blood Pressure Location Lt brachial Position Sitting Pulse 66 Pulse Source Pulse Oximeter Temp 97.1 F Temp Source Axillary Pulse Oximetry (%) 99 Oxygen Delivery Method Room Air Intake Visit Reasons: 3 Week F/U Permastone Installer Required: No Accompanied by: Self / Same As Patient Allergies No Known Allergies Allergy (Verified 12/25/24 14:02) Medication List - Last Reconciled 12/25/24 by Brendon Joel MD atorvastatin 40 mg PO BEDTIME blood-glucose,baseball inspector,cont (Dexcom G6 Vegetable Farmworker) As directed cabozantinib (Cabometyx) 60 mg PO DAILY [Dexcom G6 glucose monitor As directed] [Dexcom G6 lancets As directed] Dexcom G6 Sensor (blood-glucose sensor) every 10 days NS [Dexcom G6 strips As directed] Dexcom G6 Transmitter (blood-glucose transmitter) As directed NS gabapentin 100 mg PO TID PRN lactulose 10 grams (15 mL) PO BEDTIME metformin 500 mg PO BID 90 days miscellaneous medical supply Dexcom G6 Glucose meter Tobacco use date assessed: 12/25/24 Dental Screening Dental Screen Date: 12/25/24 Did you have a dental visit in the last 12 months?: Yes Did you have a dental problem in the last 6 months where you did not have access to dental care?: No PFSH Medical History Diabetes mellitus Cancer Morbidly obese Excessive daytime sleepiness MARIKA (obstructive sleep apnea) Obesity (BMI 30-39.9) Family History Mother Breast cancer Diabetes Father No problems noted. 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 1. Little interest or pleasure in doing things: not at all 2. Feeling down, depressed, or hopeless: not at all 3. Trouble falling or staying asleep, or sleeping too much: not at all 4. Feeling tired or having little energy: not at all 5. Poor appetite or overeating: not at all 6. Feeling bad about yourself - or that you are a failure or have let yourself or your family down: not at all 7. Trouble concentrating on things, such as reading the newspaper or watching television: not at all 8. Moving or speaking so slowly that other people could have noticed. Or the opposite - being so fidgety or restless that you have been moving around a lot more than usual: not at all 9. Thoughts that you would be better off or of hurting yourself in some way: not at all Total score: 0 Source: Developed by Drs. Otoniel Gray, Trini Rowland, Marvin Walden and colleagues, with an educational soraida from [employer]. Thrive Questionnaire Date Thrive assessed: 12/25/24 I am a: Patient Within the past 12 months, did the food you bought not last and you didn't have the money to get more?: Never true Within the past 12 months, did you worry whether your food would run out before you got money to buy more?: Never true Do you have trouble paying for medicines?: No Do you have trouble getting transportation to medical appointments?: No Do you have trouble paying your heating and electricity bill?: No Do you have trouble taking care of your child, family member or friend?: No Do you have trouble with day-to-day activities such as bathing, preparing meals, shopping, managing finances, etc.?: No Are you currently unemployed and looking for a job?: No Are you interested in more education?: No THRIVE Score: 0 AUDIT C Alcohol Use Questionnaire (AUDIT-C) 1. How often do you have a drink containing alcohol?: Never 3. How often do you have six or more drinks on one occasion?: Never Total Score: 0 TOR-7 AMB Questionnaire TOR-7 Date TOR - 7 assessed: 12/25/24 Feeling nervous, anxious, or on edge: 0 = Not at all Not being able to stop or control worryin = Not at all Worrying too much about different things: 0 = Not at all Trouble relaxin = Not at all Being so restless that it is hard to sit still: 0 = Not at all Becoming easily annoyed or irritable: 0 = Not at all Feeling afraid as if something awful might happen: 0 = Not at all Total TOR-7 score (0-4 normal; 5-9 mild; 10-14 moderate; 15-21 severe): 0 Source: Developed by Drs. Otoniel Gray, Trini Rowland, Marvin Walden and colleagues, with an educational soraida from [employer]. Physical exam (Primary Care) Vital Signs: Last Vital Signs Temp 97.1 F 12/25/24 13:24 Pulse 66 12/25/24 13:24 BP 126/80 12/25/24 13:24 Pulse Ox 99 12/25/24 13:24 Oxygen Delivery Method Room Air 12/25/24 13:24 BMI result Body Mass Index 33.2 Tobacco/Smoking Status: Tobacco use Status Tobacco use date assessed 12/25/24 12/25/24 13:27 Patient Tobacco Use Status Never used Tobacco 12/25/24 13:27 e-Cigarette/Vaping Use Never Used 12/25/24 13:39 PHQ-9: PHQ-9 Score PHQ-9: Total score 0 12/25/24 13:39 Thrive Assessment: Date of Thrive Assessment Date Thrive assessed 12/25/24 12/25/24 13:27 Coding Level of Care Code Est Pt Level 4 (54704) Complex EM visit Add On G2211 Diagnoses Diabetes mellitus E11.9 Assessment & Plan Assessment & Plan (1) Diabetes mellitus: Code(s): E11.9 - Type 2 diabetes mellitus without complications Category: Medical Plan: Blood sugar log reviewed. Continue metformin at twice a day. Revd that new chemotherapy drug has been started. Plan History of Present Illness The patient is a 59-year-old male presenting with Type 2 Diabetes Mellitus and chemotherapy-induced neuropathy. He has been following a regimen of metformin, administered twice daily, with beneficial effects on blood glucose levels and reduction of visual aid dependency. He describes an improvement in constipation symptoms associated with metformin. He utilizes a glucose sensor to monitor his blood sugar and reports satisfactory control of readings, which he shared during this visit. For Type 2 Diabetes Mellitus, the patient describes experiencing higher blood sugar readings in the morning, balancing with lower readings during midday likely due to physical activity and the action of metformin. The enhanced glucose management coincides with his metformin usage and adherence to scheduled dosing with meals during an eating window from 12 PM to 6 PM. Additionally, the patient reports sensory neuropathy in his extremities, associated with recent chemotherapy treatments. The symptoms have persisted since the initial chemotherapy cycle. The patient mentions starting a new oral chemotherapy agent and accurately communicated this information to the nurse. Social History - No social determinants of health discussed during the visit. Review of Systems - Endocrine: Reports effective blood glucose control with higher readings in the morning and improvement during midday. - Neurological: Reports neuropathy in hands and feet since chemotherapy. - Gastrointestinal: Reports resolution of constipation associated with metformin use. - Visual: Reports decreased need for glasses for distance vision since metformin dosage adjustment. Physical Exam General: Cooperative and healthy appearing Nutritional Appearance: Well nourished Orientation/consciousness: Patient oriented x3 Limitations: No limitations Head: Normal to inspection General: Appearance normal, both eyes and all related structures Neck: Normal visual inspection Chest: Normal palpation of entire chest wall Respiratory: N ormal respiratory effort Neurology: Patient oriented x3, reports neuropathy in hands and feet since starting chemotherapy. Results - Labs/Tests: Reports utilization of a glucose sensor for blood sugar monitoring. - Labs/Tests: HbA1c reported at 4.2%. Plan 1. 2%. The glucose sensor is proving effective for tracking and managing diabetes; however, a request for the accompanying baseball inspector device will be fulfilled to ensure optimal monitoring. Neuropathic symptoms from chemotherapy were acknowledged, with ongoing treatments to be closely monitored by oncology. The patient will continue the prescribed chemotherapy regimen and has been instructed to reach out should alterations in symptoms occur. Routine medical follow-up in six months was scheduled unless developments necessitate sooner review.: Patient was informed and verbally consented to the use of an ambient scribe for clinic note documentation during this visit. Discussion Notes I explained the ongoing regimen for managing Type 2 Diabetes Mellitus, emphasizing the favorable glucose trends as reported. We extensively discussed the importance of consistent medication adherence with metformin and the associated perks observed, particularly improved vision and resolved gastrointestinal symptoms. I acknowledged the neuronal symptoms linked to chemotherapy and supported the patient's current oncological treatment path. There was consensus with the patient on device requisition for enhanced glucose monitoring reliability, and instructions were provided regarding the anticipated follow-up timeline and conditions requiring earlier contact. Patient Instructions - Continue metformin twice daily with meals. - Use the glucose sensor consistently for monitoring. - car installations supervisor the glucose baseball inspector from the pharmacy as instructed. - Resume chemotherapy as directed by the oncology team. - Report any new or worsening symptoms of neuropathy to a healthcare provider. - Return for follow-up in six months or earlier if necessary.
== END 2024-12-25 14:01 | disposition home or self-care (01) ==
LOC: HO.HMCHD 13:20
PROVIDERS: PCP Internal Medicine; Visit Provider Internal Medicine
DX: E11.9 Type 2 diabetes mellitus without complications (principal)

== ENCOUNTER → 2024-12-25 13:19 | Outpatient (BNVA) | payer OTHER, SELFPAY | PROVIDERS: PCP Internal Medicine; Visit Provider Internal Medicine | DX: Z13.89 Encounter for screening for other disorder (principal) ==

== ENCOUNTER 2025-01-05 12:00 | Emergency (ER) | payer OTHER, SELFPAY ==
--- NOTE | ~2025-01-05 | CT_ITS ---
CLINICAL HISTORY: dizziness, brain fog, gait feels different CT HEAD WITHOUT CONTRAST. CT ANGIOGRAPHY HEAD AND NECK WITH CONTRAST. 3D POSTPROCESSING. Comparison: CT/IA/SR - CT HEAD/BRAIN WO IV CON - 10/21/24 14:10 EST Findings: HEAD CT: No intra-axial mass, midline shift, hydrocephalus, or acute hemorrhage. There is hypoattenuation in the right temporal lobe, axial image 18, series 5. No significant atrophy-like change. There is nodular mucosal thickening in the bilateral maxillary sinuses. There is nonspecific opacification of several bilateral ethmoid air cells. No mastoid fluid. The orbits are within normal limits. No skull fracture. HEAD AND NECK CTA: Conventional arch anatomy with patent branch origins. No vertebral artery occlusion or dissection. Patent extracranial carotid arteries with no occlusion, flow-limiting stenosis, aneurysm or dissection. The distal ICAs bilaterally are tortuous. There is prominent calcific plaque in the bilateral intracranial ICAs with no occlusion or flow-limiting stenosis. Vertebrobasilar system and cerebellar arteries are patent. Cerebral arteries are patent with no occlusion or aneurysm. No abnormal intracranial enhancement. Patent dural venous sinuses. Atrophic appearing thyroid gland. There are confluent opacities in the bilateral upper lobe paramediastinal regions, right greater than left. No destructive osseous lesion. There is level 3 right cervical lymphadenopathy which measures 3.1 x 3.2 cm. There is right paratracheal lymphadenopathy which measures 4.4 x 3.7 cm. Median sternotomy changes. Multiple superior mediastinal clips. IMPRESSION: 1. No acute intracranial hemorrhage. 2. Hypoattenuation in the right temporal lobe may be artifactual but the possibility of age-indeterminate ischemia cannot be entirely excluded. 3. Patent CTA head and neck with no large vessel occlusion or flow-limiting stenosis. 4. Cervical and mediastinal lymphadenopathy as described. 5. Bilateral upper lobe paramediastinal densities may be inflammatory or infectious in etiology. If there is history of prior radiation, the findings could be radiation fibrosis. This document has been electronically signed by: Cris Rainey DO on 01/05/2025 15:19:04
[2025-01-05 12:04] VITALS: BP 123/99; PULSE 77; RESP 18; TEMP 36.6; O2SAT 98; BMI 31.7
--- NOTE | 2025-01-05 12:07 | ED_ITS ---
HPI - General Adult General Chief complaint: Dizziness Stated complaint: sent in for possible blood clot/stroke Time Seen by Provider: 01/05/25 12:18 Source: patient, family, RN notes reviewed and old records reviewed Mode of arrival: ambulatory Limitations: no limitations History of Present Illness ED Provider: Cynthia HPI narrative: 59-year-old male past medical history significant for diabetes, coronary artery disease, obstructive sleep apnea, neuroendocrine tumor presents for evaluation of gait instability. Patient denies dizziness. For the last 3 days he reports he has not been able to walk in his straight line and when he stands up he feels off balance He denies any history of vertigo. Denies any fevers, chills, cough, ear pain. He denies any headaches. He did receive radiation over last few months for neuroendocrine tumor in his chest. He was not on any active treatment. The patient reports he has been on metformin for his diabetes this is a relatively new diagnosis, he was not take insulin. His symptoms seemed to be worse if he stands up too quickly Related Data Home Medications ?Medication ?Instructions ?Recorded ?Confirmed miscellaneous medical supply ea miscellaneous 11/29/24 12/25/24 cabozantinib 60 mg tablet 60 mg PO DAILY 12/25/24 12/25/24 (Cabometyx) Previous Rx's ?Medication ?Instructions ?Recorded gabapentin 100 mg capsule 100 mg PO TID PRN Pain (Scale 12/27/22 Score 4-6) #30 caps metformin 500 mg tablet 500 mg PO BID 90 days #180 tabs 11/20/24 Dexcom G6 glucose monitor #1 ea 12/02/24 Dexcom G6 lancets #1 ea 12/04/24 Dexcom G6 strips #1 ea 12/04/24 Dexcom G6 Sensor (blood-glucose #9 ea 12/06/24 sensor) Dexcom G6 Transmitter #1 ea 12/06/24 (blood-glucose transmitter) atorvastatin 40 mg tablet 40 mg PO BEDTIME #30 tabs 12/23/24 blood sugar diagnostic (Freestyle #50 ea 12/25/24 [employer] strips) blood-glucose meter (Freestyle #1 ea 12/25/24 [employer] meter) lactulose 10 gram/15 mL oral 10 g (15 mL) PO BEDTIME #300 mL 12/27/24 solution Dexcom G6 Feedmobile Driver #1 ea 01/01/25 (blood-glucose,manager cardiology,cont) meclizine 25 mg tablet 25 mg PO TID PRN dizziness #30 tabs 01/05/25 Allergies Allergy/AdvReac Type Severity Reaction Status Date / Time No Known Allergies Allergy Verified 01/05/25 12:11 Review of Systems 2 Constitutional: Constitutional: Denies body ache(s), Denies chills, Denies fever(s) and Reports weakness Eyes: Eyes: Denies blurry vision ENT: Denies vertigo, Reports dizziness and Denies lip swelling Cardiovascular: Cardiovascular: Denies chest pain and Denies dyspnea Respiratory: Respiratory: Denies cough and Denies dyspnea Gastrointestinal: Gastrointestinal: Denies abdominal pain, Denies nausea and Denies vomiting Musculoskeletal: Musculoskeletal: Denies back pain Integumentary/Breasts: Skin/Breast: Denies rash Neurologic: Denies vertigo, Reports dizziness and Reports weakness Psychiatric: Psychiatric: Denies anxiety Allergic/Immunologic: Allergic/Immunologic: Denies lip swelling PMFSH Past Medical History Medical History Diabetes mellitus Cancer Morbidly obese Excessive daytime sleepiness MARIKA (obstructive sleep apnea) Obesity (BMI 30-39.9) Family History Family History Mother Breast cancer Diabetes Father No problems noted. 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 Cognitive needs: No Hearing needs: No Vision needs: Yes (reading glasses) Physical Exam ED Vital Signs: Vital Signs - 24 hr 01/05/25 15:01 01/05/25 15:17 01/05/25 15:17 Temperature 97.6 F Pulse Rate 65 64 70 Respiratory Rate 14 Blood Pressure 119/84 118/84 125/86 Pulse Oximetry 99 Oxygen Delivery Method Room Air 01/05/25 15:25 01/05/25 15:26 04/27/25 15:54 Temperature 97.5 F 97.5 F Pulse Rate 75 66 66 Respiratory Rate 20 20 Blood Pressure 118/89 153/91 H 153/91 H Pulse Oximetry 97 97 Oxygen Delivery Method Room Air Room Air BMI result Body Mass Index 31.7 Const General: healthy appearing, comfortable, no acute distress, alert and awake Nutritional Appearance: well nourished Orientation/consciousness: patient oriented x3 HENMT Head: Yes normocephalic and Yes atraumatic Eyes Eyelids: Yes eyelids normal Conjunctivae: conjunctivae normal Sclerae: sclerae normal Corneas: corneas normal Pupils: Equal, round and reactive pupils present EOM: EOMs intact bilaterally Neck Neck: Yes full ROM Resp Effort & Inspection: normal respiratory effort, able to speak in complete sentences and not labored Cardio Rate: regular rate Rhythm: regular rhythm GI Inspection: No distended Palpation (GI): Soft to palpation, not firm, nontender, no guarding and not rigid Skin General skin exam: elasticity normal Neuro General: patient oriented x3 Cranial nerves: Yes CN's II-XII intact bilaterally, Yes Equal, round and reactive pupils present and Yes Bilaterally intact EOM present Cognition (Neuro): normal cognition Gait exam (Neuro): not ataxic Motor exam (neuro): 5/5 motor strength present throughout, Pronator motor function not present, no tremor noted, no asterixis and Motor fasciculations not present Coordination: [id number] test normal and Romberg test positive Extrem Other: Moving all extremities well without any obvious deformities Course Course Course Narrative: RME: 59-year-old male history of neuroendocrine cancer on chemo presents to ED for 3 days of dizziness sensation as if his gait is off trouble walking and also muffled feeling in his brain. Patient denies ever falling, loss of consciousness, slurred speech, facial droop, loss of vision, or paralysis of extremities. NIH score is 0. Will not cause code stroke due to patient having symptoms for 3 days but labs EKG CTA ordered. Reevaluation(s) Reevaluation #1: Discuss the workup with the patient. The patient has no acute intracranial hemorrhage. He has a questionable subacute stroke in the right temporal region. This clinically would not explain lightheadedness or dizziness. It was most likely artifactual as the patient had a normal brain MRI a few months ago. Patent CTA of the head and neck with no large vessel occlusion or stenosis. The patient's symptoms improved with meclizine. I discussed all these findings with the patient and he will follow up with his outpatient providers. We will discharge the patient with meclizine Time: 15:41 Medications Administered Discontinued Medications Generic Name Dose Route Start Last Admin Trade Name Guillermo PRN Reason Stop Dose Admin Sodium Chloride 1,000 mls @ 999 mls/hr 01/05/25 12:45 01/05/25 15:04 Ns IV 01/05/25 13:45 Infused .Q1H1M SHANDRA Infusion Iohexol 100 ml 01/05/25 14:10 01/05/25 14:10 Iohexol 350 Mg/Ml 100 Ml Infus..Btl IV 01/05/25 14:11 70 ml ONCE ONE Administration Meclizine HCl 50 mg 01/05/25 12:35 01/05/25 12:43 Meclizine Hcl 25 Mg Tablet PO 01/05/25 12:36 50 mg ONCE ONE Administration Medical Decision Making Medical Decision Making [facility] Narrative: 59-year-old male with past medical history as above presenting for evaluation of what he describes as lightheadedness. He denies dizziness or vertigo. He did have a positive Romberg but otherwise negative cerebellar exam. His symptoms started 3 days ago. He reports an MRI within the last few months of his brain that was reportedly normal. Given the positive Romberg test a CT angiography of the head and neck was ordered. We will also check orthostatics. His symptoms could be a side effect of his radiation, I do not suspect metformin is the cause of his lightheadedness. EKG is nonischemic. There was no evidence of CASEY or dehydration. Differential Diagnosis Differential Diagnoses: The differential diagnosis associated with the presentation includes Posterior stroke CVA Orthostasis Dehydration CASEY Lightheadedness Vertigo Admission/Observation Consideration of admission/observation: Escalation of care including admission/observation considered Lab Data [facility] Lab Attestation statement: I reviewed the patient's lab results. No leukocytosis or anemia. Normal platelet count. No electrolyte abnormalities warranting intervention. Troponin negative. A mild elevation of AST and ALT which could be related to a viral illness. Total bilirubin within normal limits, there was no indication of obstructive biliary disease and the patient has no abdominal pain. 01/05/25 12:38 01/05/25 12:38 Labs: Lab Results 01/05/25 01/05/25 Range/Units 12:38 15:27 WBC 4.1 L (4.8-10.8) X10*3/uL RBC 4.87 (4.60-5.80) X10*6/uL Hgb 14.7 (14.0-18.0) g/dl Hct 44.0 (42.0-52.0) % MCV 90.3 (80.0-98.0) fL MCH 30.2 (27.0-33.0) pg MCHC 33.4 (31.0-36.0) g/dl RDW 14.6 (11.0-16.0) % Plt Count 287 (160-400) X10*3/uL MPV 9.0 L (9.4-12.4) fL Immature Gran % (Auto) 0.2 (0.0-0.4) % Neut % (Auto) 69.8 (45-73) % Lymph % (Auto) 17.7 L (20-40) % Jackson % (Auto) 5.4 (2-11) % Eos % (Auto) 6.2 H (0-4) % Baso % (Auto) 0.7 (0-2) % Lymph # (Auto) 0.7 L (1.2-4.9) X10*3/uL Jackson # (Auto) 0.2 (0.1-1.2) X10*3/uL Eos # (Auto) 0.3 (0.0-0.4) X10*3/uL Baso # (Auto) 0.0 (0.0-0.2) X10*3/uL Abs Immat Gran (auto) 0.01 (0.00-0.03) X10*3/uL Absolute Neuts (auto) 2.8 (2.0-8.3) x10*3/uL Absolute Nucleated RBC 0.000 (0.0-0.012) X10*3/uL Nucleated RBC % (auto) 0.0 (0.0-0.2) /100WBC PT 13.4 H (10.9-12.4) SEC INR 1.2 H (0.9-1.1) APTT 36.4 (26.0-36.8) SEC Sodium 137 (135-145) mmol/L Potassium 4.3 (3.3-5.1) mmol/L Chloride 101 (96-108) mmol/L Carbon Dioxide 24 (22-29) mmol/L Anion Gap 16 (12-20) BUN 14 (9-16) mg/dL Creatinine 0.72 (0.5-1.4) mg/dL Estim Creat Clear Calc 146.4 Estimated GFR > 60 POC Glucose 76 (60-115) mg/dL Random Glucose 155 H (60-115) mg/dL Calcium 9.5 (8.4-10.2) mg/dL Total Bilirubin 0.6 (0.0-1.0) mg/dL AST 68 H (5-37) U/L ALT 65 H (0-40) U/L Alkaline Phosphatase 94 (39-117) U/L Troponin I High Sens 3.5 (<3.5-35.0) ng/L Total Protein 7.8 (6.5-8.0) g/dL Albumin 4.0 (3.5-5.0) g/dL Radiology Impression Discussion of test interpretation with radiology: I have reviewed the radiologist's reading. Radiologist Impression: Findings: HEAD CT: No intra-axial mass, midline shift, hydrocephalus, or acute hemorrhage. There is hypoattenuation in the right temporal lobe, axial image 18, series 5. No significant atrophy-like change. There is nodular mucosal thickening in the bilateral maxillary sinuses. There is nonspecific opacification of several bilateral ethmoid air cells. No mastoid fluid. The orbits are within normal limits. No skull fracture. HEAD AND NECK CTA: Conventional arch anatomy with patent branch origins. No vertebral artery occlusion or dissection. Patent extracranial carotid arteries with no occlusion, flow-limiting stenosis, aneurysm or dissection. The distal ICAs bilaterally are tortuous. There is prominent calcific plaque in the bilateral intracranial ICAs with no occlusion or flow-limiting stenosis. Vertebrobasilar system and cerebellar arteries are patent. Cerebral arteries are patent with no occlusion or aneurysm. No abnormal intracranial enhancement. Patent dural venous sinuses. Atrophic appearing thyroid gland. There are confluent opacities in the bilateral upper lobe paramediastinal regions, right greater than left. No destructive osseous lesion. There is level 3 right cervical lymphadenopathy which measures 3.1 x 3.2 cm. There is right paratracheal lymphadenopathy which measures 4.4 x 3.7 cm. Median sternotomy changes. Multiple superior mediastinal clips. IMPRESSION: 1. No acute intracranial hemorrhage. 2. Hypoattenuation in the right temporal lobe may be artifactual but the possibility of age-indeterminate ischemia cannot be entirely excluded. 3. Patent CTA head and neck with no large vessel occlusion or flow-limiting stenosis. 4. Cervical and mediastinal lymphadenopathy as described. 5. Bilateral upper lobe paramediastinal densities may be inflammatory or infectious in etiology. If there is history of prior radiation, the findings could be radiation fibrosis. This document has been electronically signed by: Cris Rainey DO on 01/05/2025 15:19:04 Discharge Plan Discharge Clinical Impression: Lightheadedness Patient Disposition: Home, Self-Care Instructions: Vertigo (ED), Lightheadedness (ED) Additional Instructions: Your symptoms are consistent with peripheral vertigo. Your workup in the ER today was reassuring. There was a questionable shadow versus old stroke in the right frontal temporal region This is not an acute stroke You may follow up with your primary doctor, you may benefit from an outpatient MRI Take meclizine as needed for dizziness Follow-up with your primary doctor, return for new or worsening symptoms Prescriptions: New meclizine 25 mg tablet 25 mg PO TID PRN (Reason: dizziness) Qty: 30 0RF No Action miscellaneous medical supply Misc miscellaneous Rx Instructions: Dexcom G6 Glucose meter (DME) Dexcom G6 glucose monitor See Rx Instructions .Route .MEDSUPPLY Qty: 1 0RF Rx Instructions: As directed (DME) Dexcom G6 lancets See Rx Instructions .Route .MEDSUPPLY Qty: 1 3RF Rx Instructions: As directed (DME) Dexcom G6 strips See Rx Instructions .Route .MEDSUPPLY Qty: 1 3RF Rx Instructions: As directed (DME) Dexcom G6 Sensor Device See Rx Instructions .Route Qty: 9 3RF Rx Instructions: every 10 days (DME) Dexcom G6 Transmitter Device See Rx Instructions .Route Qty: 1 0RF Rx Instructions: As directed atorvastatin 40 mg tablet 40 mg PO BEDTIME Qty: 30 3RF (DME) blood-glucose meter [Freestyle [employer]] Misc See Rx Instructions .Route Qty: 1 0RF Rx Instructions: As directed- daily (DME) Freestyle [employer] Strip See Rx Instructions .Route Qty: 50 5RF Rx Instructions: As directed- daily lactulose 10 gram/15 mL solution 10 g PO BEDTIME Qty: 300 0RF (DME) Dexcom G6 [employer] Driver Misc See Rx Instructions .Route Qty: 1 0RF Rx Instructions: As directed gabapentin 100 mg capsule 100 mg PO TID PRN (Reason: Pain (Scale Score 4-6)) Qty: 30 0RF metformin 500 mg tablet 500 mg PO BID 90 Days Qty: 180 0RF Cabometyx 60 mg tablet 60 mg PO DAILY Interventions: ED Discharge Assessment Last Done: 01/05/25 15:54 Discharge Date/Time: 01/05/25 15:59 Print Language: Zambian
[2025-01-05] MEDS: 0.9 % Sodium Chloride 1,000 ML 999 ML IV (12:42)
[2025-01-05] MEDS: Meclizine HCl 25 MG TABLET 50 MG PO (12:43)
[2025-01-05 12:46] LABS: Basophils Percent Auto 0.7 % (0-2); Eosinophils Absolute Auto 0.3 X10*3/uL (0.0-0.4); Eosinophils Percent Auto 6.2 % (0-4); Hemoglobin 14.7 g/dl (14.0-18.0); Imm Gran Abs Auto 0.01 X10*3/uL (0.00-0.03); Imm Gran Pct Auto 0.2 % (0.0-0.4); Lymphocytes Absolute Auto 0.7 X10*3/uL (1.2-4.9); Lymphocytes Percent Auto 17.7 % (20-40); MANUAL DIFF FLAG NO; Mean Corpuscular HGB Conc 33.4 g/dl (31.0-36.0); Mean Corpuscular Hemoglobin 30.2 pg (27.0-33.0); Mean Corpuscular Volume 90.3 fL (80.0-98.0); Monocytes Absolute Auto 0.2 X10*3/uL (0.1-1.2); Monocytes Percent Auto 5.4 % (2-11); Neutrophils Absolute Auto 2.8 x10*3/uL (2.0-8.3); Neutrophils Percent Auto 69.8 % (45-73); Platelet Count 287 X10*3/uL (160-400); Red Blood Count 4.87 X10*6/uL (4.60-5.80); Red Cell Distribution Width 14.6 % (11.0-16.0); White Blood Count 4.1 X10*3/uL (4.8-10.8)
[2025-01-05 12:55] LABS: INTERNATIONAL NORM RATIO 1.2 (0.9-1.1); Prothrombin Time 13.4 SEC (10.9-12.4)
[2025-01-05 12:58] LABS: Partial Thromboplastin Time 36.4 SEC (26.0-36.8)
[2025-01-05 13:21] LABS: Troponin-I High Sensitivity 3.5 ng/L (<3.5-35.0)
[2025-01-05 13:28] LABS: Alanine Aminotransferase 65 U/L (0-40); Alkaline Phosphatase 94 U/L (39-117); Anion Gap 16 (12-20); Aspartate Amino Transferase 68 U/L (5-37); Bilirubin Total 0.6 mg/dL (0.0-1.0); Blood Urea Nitrogen 14 mg/dL (9-16); Calcium 9.5 mg/dL (8.4-10.2); Carbon Dioxide 24 mmol/L (22-29); Chloride 101 mmol/L (96-108); Creatinine Clr Calc Pharmacy 146.4; Estimated Glomerular Filt Rate > 60; Glucose Random 155 mg/dL (60-115); Potassium 4.3 mmol/L (3.3-5.1); Sodium 137 mmol/L (135-145); Total Protein 7.8 g/dL (6.5-8.0)
[2025-01-05] MEDS: iohexoL 350 MG/ML 100 ML INFUS..BTL IV (14:10)
[2025-01-05 15:01] VITALS: BP 119/84; PULSE 65; RESP 14; TEMP 36.4; O2SAT 99
[2025-01-05 15:17] VITALS: BP 118/84; BP 125/86; PULSE 64; PULSE 70
[2025-01-05 15:25] VITALS: BP 118/89; PULSE 75
[2025-01-05 15:26] VITALS: BP 153/91; PULSE 66; RESP 20; TEMP 36.4; O2SAT 97
--- NOTE | 2025-01-05 15:49 | MHC.EDTECH ---
This pct assumed care of Pt at 1500,Vitals and Orthostatics vitals taken and blood sugar check ,Patient waiting for discharge Paper work .
[2025-01-05 15:52] LABS: Glucose, Whole Blood 76 mg/dL (60-115)
[2025-01-05 15:54] VITALS: BP 153/91; PULSE 66; RESP 20; TEMP 36.4; O2SAT 97
== END 2025-01-05 15:59 | disposition home or self-care (01) ==
PROVIDERS: Physician Assistant; Emergency Provider Emergency Medicine; PCP Internal Medicine
DX: R26.89 Other abnormalities of gait and mobility (principal); R42 Dizziness and giddiness; E11.9 Type 2 diabetes mellitus without complications; I25.10 Atherosclerotic heart disease of native coronary artery without angina pectoris; Z79.899 Other long term (current) drug therapy
CPT/HCPCS: 36415; 70496; 70498; 80053; 82947; 84484; 85025; 85610; 85730; 96360; 96361; 99284; 99285; Q9967

== ENCOUNTER → 2025-01-05 12:05 | Outpatient (BNV) | payer OTHER, SELFPAY | PROVIDERS: Emergency Provider Emergency Medicine; PCP Internal Medicine; Visit Provider Radiology Diagnostic Radiology | DX: R59.0 Localized enlarged lymph nodes (principal); R90.89 Other abnormal findings on diagnostic imaging of central nervous system; R91.8 Other nonspecific abnormal finding of lung field | CPT/HCPCS: 70496; 70498 ==

== ENCOUNTER 2025-01-13 13:51 | Outpatient (RCR) | payer OTHER, SELFPAY ==
--- NOTE | 2024-12-03 11:04 | MHC.PT.EP ---
[facility] [place] Office [place] Office [place] Office [address] David Cutler [address] [phone] F: [phone] F: [phone] F: [phone] F: [phone] Physical Therapy Plan of Care Date of Evaluation: 12/02/24 Date of Surgery: Diagnosis: Other tear of medial meniscus, current injury, R knee initial encounter. 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 Right ICD-10 S83.241A. Impaction fracture with MMT, 2-3x/week x 6 weeks Exercises: OA safe knee rehab program, R knee impaction fracture with MMT signed by Frantz Coronado PA-C, GREY; JEFFREY [facility] [address] Phone: [phone], fax: [phone] Due to patient report of difficulty chewing/swallowing/clearing throat/controlling saliva L side of mouth at times following progression of his cancer, he would likely benefit from a speech therapy referral to improve/gain some strategies/exercises to ease impairments. (He was educated in this recommendation and was encouraged to speak with his oncologist at upcoming appt on 12/05/24) Pt exhibits history of fall with syncopal episode on 10/20/24 resulting in impaction fracture of R knee on , nondisplaced lateral malleolar fracture (now out of walking boot/WBAT/off crutches), history of shingles, active CA (finished radiation treatment two weeks ago). Pt will benefit from attending skilled PT services at a frequency of 1-2x/week x 4-6 weeks to address impairments, implement HEP, and restore mobility to reduce risk of fall/maximize gains. Pt states he currently remains OOW since time of fall and has goal of possible RTW soon (he was educated to discuss this goal with his MD to gain work note. At evaluation, pt's R knee was good, AROM 0-120, presents with decreased with AROM, knee flexion, decreased weight-bearing tolerance, impaired balance however he would benefit from a core/hip/knee gentle OA program to strengthen and improve safety for ADLS/IADLS. Pt currently negotiating stairs one step at a time ascending/descending, expresses decreased dynamic/static balance and has poor mobility for CKC. Pt states he was cleared by Kiara Alcocer PA-C for ankle ROM/exercises/wean from boot. He does not have any orders present with him for treatment of his R ankle lateral malleolar fracture however a call was placed to [facility] to obtain notes on this separate but related injury. Overall Shyam is an excellent rehab candidate and has great motivation level for participation in therapy. 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 Pt has recently transitioned from Dr. Marie to new PCP Dr. Chao and has an upcoming appt with him in a few weeks. Frequency and Duration: The patient will be seen 2x/week x 6 weeks Short Term Goals: 1. R knee AAROM extension 0 degrees. 2. R knee AAROM flexion to 120 degrees. 3. Decreased R knee pain by 25% during ADLS/IADLS. 4. Pt will demonstrate good eccentric control in standing. 5. No buckling in R knee during functional mobility. Stake Driver Goals: 1. RTW with good body mechanics/functional mobility. 2. Strength R knee 5/5 all planes. 3. Good eccentric control for functional mobility. 4. Functional mobility MOD I with sx <3/10 in R knee. 5. AROM R knee 0 to 120 degrees. 6. Ascend/descend a flight of stairs reciprocally with good dynamic balance. 7. I HEP self care management. Treatment Plan: Modalities to reduce pain, spasms and effusion. Manual therapy to restore motion and function. Therapeutic exercise to improve strength and flexibility. Neuromuscular re-education for posture and balance. Therapeutic activities to return to functional activities of daily living. Electronically signed by: Ольга Dykes PT, DPT Please sign and return to therapist. Thank you for your referral.
== END 2025-02-27 12:27 | disposition home or self-care (01) ==
LOC: HO.PTS 13:51
PROVIDERS: PCP Internal Medicine; Visit Provider Physician Assistant
DX: S83.241D Other tear of medial meniscus, current injury, right knee, subsequent encounter (principal)
CPT/HCPCS: 97014; 97110; 97140; 97162; 97535

== ENCOUNTER 2025-01-14 14:28 | Emergency (ER) | payer OTHER, SELFPAY ==
--- NOTE | ~2025-01-14 | CT_ITS ---
CLINICAL HISTORY: L hip pain met CA CT of the left hip without IV contrast. COMPARISON: CT abdomen and pelvis dated 11/08/22 at 12:30 EST FINDINGS: Visualized portions of the proximal femur appear intact. There is left hip joint space narrowing with near [id number] apposition along the posterior aspect. Visualized bones of the pelvis appear intact. Several ill-defined sclerotic foci present within the bones of the left hemipelvis and proximal left femur. No cortical destruction breakthrough. Moderate fat containing left inguinal hernia. No inguinal lymphadenopathy. Small subcutaneous soft tissue densities along the posterior gluteal region on the left likely representing injection granulomas and stable from prior imaging. Prostate calcifications present. IMPRESSION: 1. No evidence of acute injury to the left hip. 2. Moderate to advanced degenerative changes of the left hip with near [id number] apposition along the posterior aspect. 3. Several ill-defined sclerotic foci present within the proximal femur and visualized bones of the pelvis, indeterminate and possibly treatment related given history of metastatic disease. No cortical breakthrough or erosions identified. These have developed since prior imaging performed in 2022. 4. Moderate fat containing left inguinal hernia. This document has been electronically signed by: Davin Judge MD on 01/14/2025 17:45:31
--- NOTE | 2025-01-14 14:50 | ED.LOWEXIN ---
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 He denies any injury he had been walking during his shift without issue. No prior surgeries or orthopedic issues Proximally 2 hours prior to arrival he took 800 mg ibuprofen he reports improvement in pain also received fentanyl EN route with EMS. Related Data Home Medications ?Medication ?Instructions ?Recorded ?Confirmed miscellaneous medical supply ea miscellaneous 11/29/24 12/25/24 cabozantinib 60 mg tablet 60 mg PO DAILY 12/25/24 12/25/24 (Cabometyx) Previous Rx's ?Medication ?Instructions ?Recorded gabapentin 100 mg capsule 100 mg PO TID PRN Pain (Scale 12/27/22 Score 4-6) #30 caps metformin 500 mg tablet 500 mg PO BID 90 days #180 tabs 11/20/24 Dexcom G6 glucose monitor #1 ea 12/02/24 Dexcom G6 lancets #1 12/04/24 Dexcom G6 strips #1 12/04/24 Dexcom G6 Sensor (blood-glucose #9 12/06/24 sensor) Dexcom G6 Transmitter #1 12/06/24 (blood-glucose transmitter) atorvastatin 40 mg tablet 40 mg PO BEDTIME #30 tabs 12/23/24 blood sugar diagnostic (Freestyle #50 ea 12/25/24 [employer] strips) blood-glucose meter (Freestyle #1 12/25/24 [employer] meter) lactulose 10 gram/15 mL oral 10 g (15 mL) PO BEDTIME #300 mL 12/27/24 solution Dexcom G6 Bench Jeweler #1 01/01/25 (blood-glucose,head silverman,cont) meclizine 25 mg tablet 25 mg PO TID PRN dizziness #30 tabs 01/05/25 morphine 15 mg immediate release 15 mg PO BID PRN pain (scale score 01/14/25 tablet 7-10) 3 days #5 tabs Allergies Allergy/AdvReac Type Severity Reaction Status Date / Time No Known Allergies Allergy Verified 01/14/25 15:19 [facility] Past Medical History Medical History Diabetes mellitus Cancer Morbidly obese Excessive daytime sleepiness MARIKA (obstructive sleep apnea) Obesity (BMI 30-39.9) Family History Family History Mother Breast cancer Diabetes Father No problems noted. 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 Head: Atraumatic Eyes: Anicteric, Normal conjunctiva. ENT: Moist mucosa, no pallor. ? Neck: Supple. Respiratory: Breathing comfortably, No distress.Clear to auscultation bilaterally, symmetric chest expansion, No wheeze, rales, ronchi. Cardiovascular: Regular rate and rhythm. No murmurs or rub. Well perfused periphery, warm extremities. No edema. ? Lower extremity vascular exam 2+ femoral, 2+ popliteal, 2+ DP and PT. Well-perfused left lower extremity brisk cap refill no edema. Abdominal: Soft, no objective distension. No palpable masses or obvious organomegaly. No focal tenderness, no guarding, no rebound tenderness or other peritoneal findings. : No flank tenderness. Neuro: Alert. Gross movement of all extremities intact. ? MSK: Full range of motion passive and active left hip. No mass no tenderness. Patient can rotate internally and externally. Full range of motion of the knee. Vital signs: See flowsheet Medications Administered Discontinued Medications Generic Name Dose Route Start Last Admin Trade Name Guillermo PRN Reason Stop Dose Admin Acetaminophen 975 mg 01/14/25 15:10 01/14/25 15:34 Acetaminophen 325 Mg Tablet PO 01/14/25 15:11 975 mg ONCE ONE Administration Methocarbamol 750 mg 01/14/25 15:28 01/14/25 15:34 Methocarbamol 750 Mg Tablet PO 01/14/25 15:29 750 mg ONCE ONE Administration Morphine Sulfate 7.5 mg 01/14/25 15:39 01/14/25 15:46 Morphine Sulfate Immed Release 15 Mg Tablet PO 01/14/25 15:40 7.5 mg ONCE ONE Administration Medical Decision Making Medical Decision Making MDM Narrative: 59-year-old male once the CT returns showing sclerotic lesions that could be secondary to treatment per radiologist I discussed the patient's oncologic history with him. He previously was on an oral chemotherapeutic agent. 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 He had a resection and radiation after this. He has previously been told that [facility] that previous pelvic imaging also previously showed these ?scarred ?lesions from the oral radioactive therapy he took at [facility] and [facility]. I suspect that is what we were seeing on the CT hip today. There was no evidence of pathologic fracture or cortical disruption. Despite this he I have counseled him on bearing minimal weight if possible using a crutch or cane on the left leg until oncology has evaluated him from this is more of a chronic finding on the radiology study seen today. He is well controlled with pain. I will give him morphine only for severe recurrence and he is calling his oncologist tomorrow to discuss this. Discharge Plan Discharge Clinical Impression: Bony sclerosis Patient Disposition: Home, Self-Care Instructions: Hip Pain (ED) Additional Instructions: DISCHARGE DIAGNOSES: Hip pain, unclear cause. Evidence of likely chronic scarring of the bone see the full CT impression below to provide your oncologist HISTORY OF PRESENTATION: Severe atraumatic bony pain left hip EMERGENCY DEPARTMENT COURSE,TESTS, TREATMENTS: While in the ED today you had a CT of your left hip and were given oral morphine. CT showed: [facility] [address] [place] [address] CT Scan Report Signed Patient: Shyam Espinosa Ordering Physician: Paresh Doss MD Date of Service: 01/14/25 Procedure(s): CT hip LT wo IV con Accession Number(s): [id number] cc: Paresh Doss MD; Brendon Joel MD~ Report Number: [id number]: Total DLP = 337.00 mGy-cm CLINICAL HISTORY: L hip pain met CA CT of the left hip without IV contrast. COMPARISON: CT abdomen and pelvis dated 11/08/22 at 12:30 EST FINDINGS: Visualized portions of the proximal femur appear intact. There is left hip joint space narrowing with near [id number] apposition along the posterior aspect. Visualized bones of the pelvis appear intact. Several ill-defined sclerotic foci present within the bones of the left hemipelvis and proximal left femur. No cortical destruction breakthrough. Moderate fat containing left inguinal hernia. No inguinal lymphadenopathy. Small subcutaneous soft tissue densities along the posterior gluteal region on the left likely representing injection granulomas and stable from prior imaging. Prostate calcifications present. IMPRESSION: 1. No evidence of acute injury to the left hip. 2. Moderate to advanced degenerative changes of the left hip with near [id number] apposition along the posterior aspect. 3. Several ill-defined sclerotic foci present within the proximal femur and visualized bones of the pelvis, indeterminate and possibly treatment related given history of metastatic disease. No cortical breakthrough or erosions identified. These have developed since prior imaging performed in 2022. 4. Moderate fat containing left inguinal hernia. DISCHARGE MEDICATIONS: ?[We have made no changes to your regular medication regimen] morphine as needed for severe pain only. We prefer you use ibuprofen Tylenol. FOLLOW-UP: ?Call your primary or general physician soon as possible to discuss your symptoms, your ED visit and to discuss follow up plans Please discuss these findings with your oncologist tomorrow 1st thing in the morning. INSTRUCTIONS ?& RETURN PRECAUTIONS: If any symptoms change first call your primary physician, if it is after-hours your primary doctors office should have a provider promotional advertising assistant you can speak with. If the symptoms are severe or very concerning to you then call 911 or return to the ED. As we advise you minimal weight-bearing on the left leg use the cane do not bear full weight until approved by your oncologist Paresh Doss MD Emergency Physician [facility] Prescriptions: New morphine 15 mg tablet 15 mg PO BID PRN (Reason: pain (scale score 7-10)) 3 Days Qty: 5 0RF Rx Instructions: Partial Fill upon patient request. No Action miscellaneous medical supply Misc miscellaneous Rx Instructions: Dexcom G6 Glucose meter (DME) Dexcom G6 glucose monitor See Rx Instructions .Route .MEDSUPPLY Qty: 1 0RF Rx Instructions: As directed (DME) Dexcom G6 lancets See Rx Instructions .Route .MEDSUPPLY Qty: 1 3RF Rx Instructions: As directed (DME) Dexcom G6 strips See Rx Instructions .Route .MEDSUPPLY Qty: 1 3RF Rx Instructions: As directed (DME) Dexcom G6 Sensor Device See Rx Instructions .Route Qty: 9 3RF Rx Instructions: every 10 days (DME) Dexcom G6 Transmitter Device See Rx Instructions .Route Qty: 1 0RF Rx Instructions: As directed atorvastatin 40 mg tablet 40 mg PO BEDTIME Qty: 30 3RF (DME) blood-glucose meter [Freestyle [employer]] Misc See Rx Instructions .Route Qty: 1 0RF Rx Instructions: As directed- daily (DME) Freestyle [employer] Strip See Rx Instructions .Route Qty: 50 5RF Rx Instructions: As directed- daily lactulose 10 gram/15 mL solution 10 g PO BEDTIME Qty: 300 0RF (DME) Dexcom G6 Bench Jeweler Misc See Rx Instructions .Route Qty: 1 0RF Rx Instructions: As directed meclizine 25 mg tablet 25 mg PO TID PRN (Reason: dizziness) Qty: 30 0RF gabapentin 100 mg capsule 100 mg PO TID PRN (Reason: Pain (Scale Score 4-6)) Qty: 30 0RF metformin 500 mg tablet 500 mg PO BID 90 Days Qty: 180 0RF Cabometyx 60 mg tablet 60 mg PO DAILY Interventions: ED Discharge Assessment Last Done: 01/14/25 19:33 Discharge Date/Time: 01/14/25 19:34 Print Language: Arabic
[2025-01-14 15:04] VITALS: BP 94/61; PULSE 99; RESP 20; TEMP 37; O2SAT 95
--- NOTE | 2025-01-14 15:11 | PC.NURSE ---
The patient is a 59-year-old male presenting with Type 2 Diabetes Mellitus and chemotherapy-induced neuropathy. Additionally, the patient reports sensory neuropathy in his extremities, associated with recent chemotherapy treatments. The symptoms have persisted since the initial chemotherapy cycle. The patient mentions starting a new oral chemotherapy agent. PMH: Significant cancer history with chemo.radiation/surgery in the past, and MARIKA. Alert and oriented. Lungs clear bilat. Respirations even and non-labored. Abdomen soft, non-tender with positive bowel sounds. Good ROM noted to left hip post pain medication. Positive pedal pulses with no edema noted.
[2025-01-14 15:17] VITALS: BP 116/80; PULSE 70; RESP 16; TEMP 37; O2SAT 99; BMI 32.7
[2025-01-14] MEDS: methocarbamoL 750 MG TABLET PO (15:34)
[2025-01-14] MEDS: Acetaminophen 325 MG TABLET 975 MG PO (15:34)
[2025-01-14] MEDS: Morphine Sulfate Immed Release 15 MG TABLET 7.5 MG PO (15:46)
[2025-01-14 16:00] VITALS: BP 108/77; PULSE 68; RESP 18; O2SAT 97
[2025-01-14 18:44] VITALS: BP 106/81; PULSE 72; RESP 14; TEMP 36.8; O2SAT 99
[2025-01-14 19:33] VITALS: BP 106/81; PULSE 72; RESP 14; TEMP 36.8; O2SAT 99
== END 2025-01-14 19:34 | disposition home or self-care (01) ==
PROVIDERS: Emergency Provider Emergency Medicine; PCP Internal Medicine
DX: M25.552 Pain in left hip (principal); M89.9 Disorder of bone, unspecified; E11.9 Type 2 diabetes mellitus without complications
CPT/HCPCS: 73700; 99284

== ENCOUNTER → 2025-01-14 15:24 | Outpatient (BNV) | payer OTHER, SELFPAY | PROVIDERS: Emergency Provider Emergency Medicine; PCP Internal Medicine; Visit Provider Radiology Diagnostic Radiology | DX: M16.12 Unilateral primary osteoarthritis, left hip (principal) | CPT/HCPCS: 73700 ==

== ENCOUNTER 2025-02-10 09:02 | Outpatient (AMB) | payer OTHER, SELFPAY ==
[2025-02-10 08:51] VITALS: BP 110/70; PULSE 86; TEMP 36.2; O2SAT 99; BMI 32.5
--- NOTE | 2025-02-10 08:51 | A.OFFPC_ITS ---
Vital Signs 02/10/25 08:51 Height 6 ft 1 in Weight 246 lb BMI 32.5 BP 110/70 Blood Pressure Location Lt brachial Position Sitting Pulse 86 Pulse Source Pulse Oximeter Temp 97.1 F Temp Source Axillary Pulse Oximetry (%) 99 Oxygen Delivery Method Room Air Intake Visit Reasons: decreased urine flow Emergency Room Orderly Required: No Accompanied by: Self / Same As Patient Allergies No Known Allergies Allergy (Verified 02/10/25 08:52) Tobacco use date assessed: 02/10/25 Dental Screening Dental Screen Date: 02/10/25 Did you have a dental visit in the last 12 months?: Yes Did you have a dental problem in the last 6 months where you did not have access to dental care?: No [facility] Medical History (Updated 02/10/25 @ 09:27 by Brendon Joel MD) Neuroendocrine tumor Diabetes mellitus Cancer Morbidly obese Excessive daytime sleepiness MARIKA (obstructive sleep apnea) Obesity (BMI 30-39.9) Family History (Updated 02/10/25 @ 09:12 by Bhavya Teixeira MA) Mother Breast cancer Diabetes Father No problems noted. 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 1. Little interest or pleasure in doing things: not at all 2. Feeling down, depressed, or hopeless: not at all 3. Trouble falling or staying asleep, or sleeping too much: not at all 4. Feeling tired or having little energy: not at all 5. Poor appetite or overeating: not at all 6. Feeling bad about yourself - or that you are a failure or have let yourself or your family down: not at all 7. Trouble concentrating on things, such as reading the newspaper or watching t elevision: not at all 8. Moving or speaking so slowly that other people could have noticed. Or the opposite - being so fidgety or restless that you have been moving around a lot more than usual: not at all 9. Thoughts that you would be better off or of hurting yourself in some way: not at all Total score: 0 Source: Developed by Drs. Otoniel Gray, Marvin Baldwin and colleagues, with an educational soraida from [employer]. Thrive Questionnaire Date Thrive assessed: 02/10/25 I am a: Patient Within the past 12 months, did the food you bought not last and you didn't have the money to get more?: Never true Within the past 12 months, did you worry whether your food would run out before you got money to buy more?: Never true Do you have trouble paying for medicines?: No Do you have trouble getting transportation to medical appointments?: No Do you have trouble paying your heating and electricity bill?: No Do you have trouble taking care of your child, family member or friend?: No Do you have trouble with day-to-day activities such as bathing, preparing meals, shopping, managing finances, etc.?: No Are you currently unemployed and looking for a job?: No Are you interested in more education?: No THRIVE Score: 0 AUDIT C Alcohol Use Questionnaire (AUDIT-C) 1. How often do you have a drink containing alcohol?: Never 3. How often do you have six or more drinks on one occasion?: Never Total Score: 0 TOR-7 AMB Questionnaire TOR-7 Date TOR - 7 assessed: 02/10/25 Feeling nervous, anxious, or on edge: 0 = Not at all Not being able to stop or control worryin = Not at all Worrying too much about different things: 0 = Not at all Trouble relaxin = Not at all Being so restless that it is hard to sit still: 0 = Not at all Becoming easily annoyed or irritable: 0 = Not at all Feeling afraid as if something awful might happen: 0 = Not at all Total TOR-7 score (0-4 normal; 5-9 mild; 10-14 moderate; 15-21 severe): 0 Source: Developed by Drs. Otoniel Gray, Trini Rowland, Marvin Walden and colleagues, with an educational soraida from [employer]. Physical exam (Primary Care) Vital Signs: Last Vital Signs Temp 97.1 F 02/10/25 08:51 Pulse 86 02/10/25 08:51 BP 110/70 02/10/25 08:51 Pulse Ox 99 02/10/25 08:51 Oxygen Delivery Method Room Air 02/10/25 08:51 BMI result Body Mass Index 32.5 Tobacco/Smoking Status: Tobacco use Status Tobacco use date assessed 02/10/25 02/10/25 08:54 Patient Tobacco Use Status Never used Tobacco 02/10/25 08:54 e-Cigarette/Vaping Use Never Used 02/10/25 08:54 PHQ-9: PHQ-9 Score PHQ-9: Total score 0 02/10/25 09:12 Thrive Assessment: Date of Thrive Assessment Date Thrive assessed 02/10/25 02/10/25 08:54 Coding Level of Care Code New Pt Level 4 (31241) Complex EM visit Add On G2211 Diagnoses Diabetes mellitus E11.9 Neuroendocrine tumor D3A.8 Assessment & Plan Assessment & Plan (1) Diabetes mellitus: Code(s): E11.9 - Type 2 diabetes mellitus without complications Category: Medical Plan: A1c needs to be repeated. Patient reports that his blood sugars are well controlled on Metformin. However last A1c greater than 10. (2) Neuroendocrine tumor: Code(s): D3A.8 - Other benign neuroendocrine tumors Category: Medical Plan: On opiates for bilateral hip pain. Prescription from the oncologist. Workup in progress. Plan History of Present Illness - The patient is a 59-year-old male presenting with concerns about his diabetes management and joint pain. - Reports blood sugar levels between 110-130 on glucose sensor. HbA1c was high at 12. Using metformin currently; temporary discontinuation of continuous gluco se monitoring device due to previous MRI. - Experiences significant joint pain in shoulders, hips, and knees with episodes of severe right knee pain leading to ER visit. - Decreased urine flow over the past two weeks with initial burning sensation at the tip of the penis, resolving but with continued difficulties unless adequately hydrated. - Regularly scheduled MRI scans for neuroendocrine tumors to monitor growth, with recent trial of chemotherapy resulting in weight loss. Social History - Patient is employed, starts work at 5:00 AM and finishes at 1:00 PM. Review of Systems - Cardiovascular: Denies chest pain. - Endocrine: Reports well-controlled blood sugars with occasional high readings. - Musculoskeletal: Reports joint pain, particularly in shoulders, hips, knees. - Neurological: Denies current headaches. Reports occasional dizziness. - Urinary: Reports decreased urine flow and burning sensation initially present then resolved, and reports a feeling of dribbling. - General: Reports weight loss. Physical Exam General: Cooperative and healthy appearing Nutritional Appearance: Well nourished Orientation/consciousness: Patient oriented x3 Limitations: No limitations Head: Normal to inspection General: Appearance normal, both eyes and all related structures Neck: Normal visual inspection Chest: Normal palpation of entire chest wall Respiratory: N ormal respiratory effort Neurology: Patient oriented x3, reports occasional dizziness Results - Labs: Hemoglobin A1c previously elevated at 12. - Tests and Diagnostics: MRI conducted for stroke evaluation. Plan 1. Type 2 Diabetes Mellitus - Assess blood glucose levels with repeated HbA1c. - Continue metformin and re-apply glucose sensor. 2. Neuroendocrine Tumor - Regular MRI follow-ups and assess weight loss and treatment effects. 3. Joint Pain - Evaluate by the oncologist for causes and manage with oxycodone. 4. Elevated Blood Pressure - Monitor due to occasional dizziness. 5. Urinary Hesitancy - Check PSA levels and encourage hydration. 6. History Of Stroke - Maintain regular neurological follow-ups. Discussion Notes During the consultation, we discussed the importance of managing diabetes, especially given the elevated HbA1c. I advised maintaining regular glucose monitoring, including the use of the glucose sensor. We also reviewed the ongoing need for monitoring his neuroendocrine tumor through MRI scans. Regarding joint pain, I suggested continued consultation with the oncologist, who is considering possible etiologies related to the current oncological treatments. For the urinary flow concerns, I recommended checking PSA levels and ensuring adequate hydration. We agreed to re-assess the situation based on new diagnostic results, including the repeated HbA1c and any changes in symptoms. Patient Instructions - Monitor blood sugar levels regularly using the glucose sensor when it is re- applied. - Continue taking metformin as prescribed. - Ensure adequate hydration daily to assist with urinary flow. - Take oxycodone at night for joint pain management as needed. - Attend regular MRI scans to monitor neuroendocrine tumor. - Follow up on PSA levels for prostate health. - Report any new or worsening symptoms promptly. - Return for follow-up in six months or sooner if directed. Orders: Orders Liver Panel Today D3A.8 - Other benign neuroendocrine tumors, E11.9 - Type 2 diabetes mellitus without complications Hemoglobin A1c Today D3A.8 - Other benign neuroendocrine tumors, E11.9 - Type 2 diabetes mellitus without complications Thyroid Stimulating Hormone Today D3A.8 - Other benign neuroendocrine tumors, E11.9 - Type 2 diabetes mellitus without complications UA and rflx microscopic Today D3A.8 - Other benign neuroendocrine tumors, E11.9 - Type 2 diabetes mellitus without complications Microalbumin, Random (w Creat) Today D3A.8 - Other benign neuroendocrine tumors, E11.9 - Type 2 diabetes mellitus without complications Complete Blood Count no Diff Today D3A.8 - Other benign neuroendocrine tumors, E11.9 - Type 2 diabetes mellitus without complications Basic Metabolic Panel Today D3A.8 - Other benign neuroendocrine tumors, E11.9 - Type 2 diabetes mellitus without complications Lipid Panel Today D3A.8 - Other benign neuroendocrine tumors, E11.9 - Type 2 diabetes mellitus without complications
== END 2025-02-10 09:27 | disposition home or self-care (01) ==
LOC: HO.HMCHD 09:03
PROVIDERS: PCP Internal Medicine; Visit Provider Internal Medicine
DX: E11.9 Type 2 diabetes mellitus without complications (principal); D3A.8 Other benign neuroendocrine tumors

== ENCOUNTER → 2025-02-10 09:02 | Outpatient (BNVA) | payer OTHER, SELFPAY | PROVIDERS: PCP Internal Medicine; Visit Provider Internal Medicine ==

== ENCOUNTER 2025-02-21 08:18 | Outpatient (REF) | payer OTHER, SELFPAY ==
[2025-02-21 10:15] LABS: Hematocrit 39.6 % (42.0-52.0); Hemoglobin 13.4 g/dl (14.0-18.0); Mean Corpuscular HGB Conc 33.8 g/dl (31.0-36.0); Mean Corpuscular Hemoglobin 31.4 pg (27.0-33.0); Mean Corpuscular Volume 92.7 fL (80.0-98.0); Platelet Count 317 X10*3/uL (160-400); Red Blood Count 4.27 X10*6/uL (4.60-5.80); Red Cell Distribution Width 15.6 % (11.0-16.0); White Blood Count 5.1 X10*3/uL (4.8-10.8)
[2025-02-21 10:44] LABS: Estimated Average Glucose 174 mg/dL; Hemoglobin A1c % 7.7 % (<6.0)
[2025-02-21 10:57] LABS: Prostate Specific Antigen Scr 0.29 ng/mL (<0.05-4.0)
[2025-02-21 11:11] LABS: Alanine Aminotransferase 23 U/L (0-40); Albumin Level 4.5 g/dL (3.5-5.0); Alkaline Phosphatase 80 U/L (39-117); Anion Gap 12 (12-20); Aspartate Amino Transferase 29 U/L (5-37); Bilirubin Direct 0.2 mg/dL (0.0-0.5); Bilirubin Total 0.6 mg/dL (0.0-1.0); Blood Urea Nitrogen 11 mg/dL (9-16); Calcium 10.1 mg/dL (8.4-10.2); Carbon Dioxide 28 mmol/L (22-29); Chloride 104 mmol/L (96-108); Cholesterol 228 mg/dL (<200); Estimated Glomerular Filt Rate > 60; Glucose Random 130 mg/dL (60-115); HDL Cholesterol 40 mg/dL (>40); LDL Cholesterol Calculated 164 mg/dL (<100); Potassium 4.7 mmol/L (3.3-5.1); Sodium 139 mmol/L (135-145); Total Protein 7.7 g/dL (6.5-8.0); Triglycerides 122 mg/dL (<150)
[2025-02-21 11:27] LABS: Thyroid Stimulating Hormone 10.36 uIU/mL (0.32-4.0)
== END 2025-02-21 08:19 | disposition home or self-care (01) ==
LOC: HO.10HDL 08:18
PROVIDERS: Visit Provider Internal Medicine
DX: E11.9 Type 2 diabetes mellitus without complications (principal); D3A.8 Other benign neuroendocrine tumors; I25.10 Atherosclerotic heart disease of native coronary artery without angina pectoris; Z12.5 Encounter for screening for malignant neoplasm of prostate
CPT/HCPCS: 36415; 80048; 80061; 80076; 83036; 84153; 84443; 85027

== ENCOUNTER 2025-02-26 14:47 | Outpatient (AMB) | payer OTHER, SELFPAY ==
--- NOTE | 2025-02-26 13:21 | MHC.PC.OV ---
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 Accompanied by: Self / Same As Patient Allergies No Known Allergies Allergy (Verified 02/10/25 08:52) Tobacco use date assessed: 02/10/25 Dental Screening Dental Screen Date: 02/26/25 Did you have a dental visit in the last 12 months?: Yes Did you have a dental problem in the last 6 months where you did not have access to dental care?: No [facility] Medical History (Updated 02/26/25 @ 15:32 by Brendon Joel MD) Hyperlipidemia Neuroendocrine tumor Diabetes mellitus Cancer Morbidly obese Excessive daytime sleepiness MARIKA (obstructive sleep apnea) Obesity (BMI 30-39.9) Family History Mother Breast cancer Diabetes Father No problems noted. 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 1. Little interest or pleasure in doing things: not at all 2. Feeling down, depressed, or hopeless: not at all 3. Trouble falling or staying asleep, or sleeping too much: not at all 4. Feeling tired or having little energy: not at all 5. Poor appetite or overeating: not at all 6. Feeling bad about yourself - or that you are a failure or have let yourself or your family down: not at all 7. Trouble concentrating on things, such as reading the newspaper or watching television: not at all 8. Moving or speaking so slowly that other people could have noticed. Or the opposite - being so fidgety or restless that you have been moving around a lot more than usual: not at all 9. Thoughts that you would be better off or of hurting yourself in some way: not at all Total score: 0 Source: Developed by Drs. Otoniel Gray, Marvin Baldwin and colleagues, with an educational soraida from [employer]. Thrive Questionnaire Date Thrive assessed: 02/26/25 I am a: Patient Within the past 12 months, did the food you bought not last and you didn't have the money to get more?: Never true Within the past 12 months, did you worry whether your food would run out before you got money to buy more?: Never true Do you have trouble paying for medicines?: No Do you have trouble getting transportation to medical appointments?: No Do you have trouble paying your heating and electricity bill?: No Do you have trouble taking care of your child, family member or friend?: No Do you have trouble with day-to-day activities such as bathing, preparing meals, shopping, managing finances, etc.?: No Are you currently unemployed and looking for a job?: No Are you interested in more education?: No THRIVE Score: 0 AUDIT C Alcohol Use Questionnaire (AUDIT-C) 1. How often do you have a drink containing alcohol?: Never 3. How often do you have six or more drinks on one occasion?: Never Total Score: 0 TOR-7 AMB Questionnaire TOR-7 Date TOR - 7 assessed: 02/26/25 Feeling nervous, anxious, or on edge: 0 = Not at all Not being able to stop or control worryin = Not at all Worrying too much about different things: 0 = Not at all Trouble relaxin = Not at all Being so restless that it is hard to sit still: 0 = Not at all Becoming easily annoyed or irritable: 0 = Not at all Feeling afraid as if something awful might happen: 0 = Not at all Total TOR-7 score (0-4 normal; 5-9 mild; 10-14 moderate; 15-21 severe): 0 Source: Developed by Drs. Otoniel Gray, Trini Rowland, Marvin Walden and colleagues, with an educational soraida from [employer]. Physical exam (Primary Care) Vital Signs: Last Vital Signs Temp 97.1 F 02/26/25 14:56 Pulse 76 02/26/25 14:56 BP 112/70 02/26/25 14:56 Pulse Ox 99 02/26/25 14:56 Oxygen Delivery Method Room Air 02/26/25 14:56 BMI result Body Mass Index 30.7 Tobacco/Smoking Status: Tobacco use Status Tobacco use date assessed 02/10/25 02/26/25 13:22 Patient Tobacco Use Status Never used Tobacco 02/26/25 13:22 e-Cigarette/Vaping Use Never Used 02/26/25 13:22 PHQ-9: PHQ-9 Score PHQ-9: Total score 0 02/26/25 15:00 Thrive Assessment: Date of Thrive Assessment Date Thrive assessed 02/26/25 02/26/25 15:00 Coding Level of Care Code Est Pt Level 4 (07283) Complex EM visit Add On G2211 Diagnoses Diabetes mellitus E11.9 Hyperlipidemia E78.5 Assessment & Plan Assessment & Plan (1) Diabetes mellitus: Code(s): E11.9 - Type 2 diabetes mellitus without complications Category: Medical Plan: A1c has decrease from 12.9 to 7.7. Very reluctant to add meds to metformin. Will recheck A1c in three months. (2) Hyperlipidemia: Code(s): E78.5 - Hyperlipidemia, unspecified Category: Medical Plan: Pt initially reluctant to start statins. Prior history of muscle spasms when he was taking statins. I urged him to restart the meds. Plan History of Present Illness - The patient is a 59-year-old male presenting with evaluation of diabetes management and associated symptoms. - He has a history of Type 2 Diabetes Mellitus, with an improved A1c from 12.9 to 7.7, managed on Metformin twice daily. The patient now maintains his blood glucose levels from 120 to 160 mg/dL. - Post-antibiotic treatment for shingles, he reports persistent constipation despite various [id number] remedies. - He had joint pain linked potentially to previous statin use and has experienced severe enough symptoms that required an emergency department visit for knee pain. - The patient has concerns about side effects and long-term implications of current medications, indicating a desire to minimize pharmaceutical interventions if possible. Social History - The patient has lost approximately 50 pounds. - He expresses a desire to reverse Type 2 Diabetes Mellitus. Review of Systems - Endocrine: Reports stable blood glucose levels around 120 to 160 mg/dL, while mid-day levels often drop to 90s. - Gastrointestinal: Reports constipation that is partially managed with various treatments. - Musculoskeletal: Reports past joint pain in knees, hips, elbows, and shoulders. - Neurological: Denies current shingles-related symptoms. Physical Exam General: Cooperative and healthy appearing Nutritional Appearance: Well nourished Orientation/consciousness: Patient oriented x3 Limitations: No limitations Head: Normal to inspection General: Appearance normal, both eyes and all related structures Neck: Normal visual inspection Chest: Normal palpation of entire chest wall Respiratory: N ormal respiratory effort Neurology: Patient oriented x3, reports joint pain in hips, previously in knees, elbows, and shoulders. Results - Labs: Hemoglobin A1c dropped from 12.9 to 7.7. Plan 1. Type 2 Diabetes Mellitus - Metformin to continue, and to re-assess the need for adjunct therapy in three months based on A1c. 2. Constipation - Continue current gastrointestinal management, consider GI referral if issues persist. 3. Hyperlipidemia - Atorvastatin prescribed, observe for joint pain recurrence. 4. Arthralgia - Re-introduce atorvastatin cautiously and monitor joint health. 5. Suspected Cardiotoxicity Risk - Monitor response to therapy and adjust as necessary. Discussion Notes I discussed with Mr. Espinosa the current status of his Type 2 Diabetes Mellitus, emphasizing the positive trend in his A1c reduction but highlighted the slightly elevated glucose readings. We talked through the potential introduction of Jardiance, explaining its benefits, but agreed to reassess after three months. Regarding his constipation, we reviewed the continuation of OTC remedies and discussed referral to a GI specialist should symptoms persist. We also reconsidered statin therapy due to his urgent need for cholesterol management against the background of arthralgia, emphasizing the monitoring for adverse effects. Potential cardiotoxicity risks were broached with shared input from his oncologist history. Engagement in the health management plan was stressed, highlighting weight loss achievements. Patient Instructions - Continue Metformin as directed and monitor blood sugar levels. - Report any blood glucose readings consistently above 160 mg/dL. - Use [id number] treatments for constipation as needed. - Begin atorvastatin and report any joint pain. - Send Cologuard sample as discussed. - Contact for follow-up in three months for A1c check. - Maintain a healthy lifestyle focusing on weight management.
[2025-02-26 14:56] VITALS: BP 112/70; PULSE 76; TEMP 36.2; O2SAT 99; BMI 30.7
== END 2025-02-26 15:18 | disposition home or self-care (01) ==
LOC: HO.HMCHD 14:47
PROVIDERS: PCP Internal Medicine; Visit Provider Internal Medicine
DX: E11.9 Type 2 diabetes mellitus without complications (principal); E78.5 Hyperlipidemia, unspecified

== ENCOUNTER → 2025-02-26 14:47 | Outpatient (BNVA) | payer OTHER, SELFPAY | PROVIDERS: PCP Internal Medicine; Visit Provider Internal Medicine ==

== ENCOUNTER 2025-03-18 13:33 | Outpatient (AMB) | payer OTHER, SELFPAY ==
--- NOTE | 2025-03-18 13:57 | A.OFFPC_ITS ---
Vital Signs 03/18/25 14:12 Height 6 ft 1 in Weight 232 lb 0.4 oz BMI 30.6 BP 122/76 Blood Pressure Location Lt brachial Pulse 76 Pulse Source Pulse Oximeter Temp 98.1 F Pulse Oximetry (%) 99 Intake Visit Reasons: Gastro pain Intake Note: urine stream has been weak since the past 3 weeks feels when hes urinating and moves he says he stops with out thinking of stopping. Allergies No Known Allergies Allergy (Verified 03/18/25 14:21) Medication List - Last Reconciled 03/18/25 by Sandra Luo PA-C blood sugar diagnostic (Freestyle Insu[employer]x strips) As directed- daily blood-glucose meter (Freestyle InsuLinx meter) As directed- daily [Dexcom G6 glucose monitor As directed] [Dexcom G6 lancets As directed] Dexcom G6 Archivist (blood-glucose,graphics intern,cont) As directed NS Dexcom G6 Sensor (blood-glucose sensor) every 10 days NS [Dexcom G6 strips As directed] Dexcom G6 Transmitter (blood-glucose transmitter) As directed NS gabapentin 100 mg PO DAILY PRN levothyroxine (Synthroid) 50 mcg PO DAILY meclizine 25 mg PO TID PRN metformin 1,000 mg (2 x 500 mg) PO BID 90 days miscellaneous medical supply Dexcom G6 Glucose meter oxycodone 5 mg PO Q6H PRN Tobacco use date assessed: 02/10/25 Dental Screening Dental Screen Date: 02/26/25 HPI Gastro pain HPI Details The patient is a 59-year-old male presenting with abdominal pain and urinary symptoms. The abdominal pain has been present intermittently for the past few weeks, occurring around 10 AM and lasting for four to five hours, with a severity of three to four out of ten. The pain is located in the back, affecting both sides but not simultaneously, and is associated with constipation that has persisted for approximately three months. The patient was diagnosed with diabetes mellitus after experiencing unintentional weight loss and a blood glucose reading of 361 mg/dL, with an A1c of 12.6%. He is currently on metformin 1000 mg daily which he is tolerating well without any abnormal side effects. The patient has a history of a neuroendocrine tumor with metastasis, initially presenting with a mass outside the liver and subsequent spread to the brain, requiring regular CT scans and consideration for chemotherapy. He underwent two weeks of radiation therapy for bone involvement in the skull, which was causing nerve compression symptoms. In September, the patient developed shingles, which was treated with antibiotics, potentially contributing to his constipation. He also experienced a fall resulting in fractures of the knee and ankle, leading to a month and a half of work absence. Recently, the patient has been experiencing urinary symptoms, including a weak urine stream and difficulty initiating urination, which have persisted for the past two weeks. There is no history of hematuria or known prostate enlargement. Social History - Employment: The patient was out of wor [employer] for a month and a half due to fractures. - Exercise: The patient engages in walki ng and exercises, though experiences fatigue initially. [facility] Medical History (Updated 03/19/25 @ 13:25 by Sandra Luo PA-C) Constipation Weak urine stream Back pain Flank pain Hyperlipidemia Neuroendocrine tumor Diabetes mellitus Cancer Morbidly obese Excessive daytime sleepiness MARIKA (obstructive sleep apnea) Obesity (BMI 30-39.9) Family History Mother Breast cancer Diabetes Father No problems noted. Social History Housing: House Alcohol intake: never Patient Tobacco Use Status: Never used Tobacco e-Cigarette/Vaping Use: Never Used service: No Current occupational status: employed Current occupation: [employer], right hand dominant Cognitive needs: No Hearing needs: No Vision needs: Yes (reading glasses) Questionnaire PHQ-9 Over the last 2 weeks, how often have you been bothered by any of the following problems? 1. Little interest or pleasure in doing things: not at all 2. Feeling down, depressed, or hopeless: not at all 3. Trouble falling or staying asleep, or sleeping too much: not at all 4. Feeling tired or having little energy: not at all 5. Poor appetite or overeating: not at all 6. Feeling bad about yourself - or that you are a failure or have let yourself or your family down: not at all 7. Trouble concentrating on things, such as reading the newspaper or watching television: not at all 8. Moving or speaking so slowly that other people could have noticed. Or the opposite - being so fidgety or restless that you have been moving around a lot more than usual: not at all 9. Thoughts that you would be better off or of hurting yourself in some way: not at all Total score: 0 Depression Screening Interpretation: Negative Depression Screening Done: Yes 84465 - PHQ-9 Billing: Yes Source: Developed by Drs. Otoniel Gray, Trini Rowland, Marvin Walden and colleagues, with an educational soraida from [employer]. Thrive Questionnaire Date Thrive assessed: 02/26/25 I am a: Patient Within the past 12 months, did the food you bought not last and you didn't have the money to get more?: Never true Within the past 12 months, did you worry whether your food would run out before you got money to buy more?: Never true Do you have trouble paying for medicines?: No Do you have trouble getting transportation to medical appointments?: No Do you have trouble paying your heating and electricity bill?: No Do you have trouble taking care of your child, family member or friend?: No Do you have trouble with day-to-day activities such as bathing, preparing meals, shopping, managing finances, etc.?: No Are you currently unemployed and looking for a job?: No Are you interested in more education?: No THRIVE Score: 0 AUDIT C Alcohol Use Questionnaire (AUDIT-C) 1. How often do you have a drink containing alcohol?: Never 3. How often do you have six or more drinks on one occasion?: Never Total Score: 0 Score Reviewed/Action Taken: No TOR-7 AMB Questionnaire TOR-7 Date TOR - 7 assessed: 02/26/25 Feeling nervous, anxious, or on edge: 0 = Not at all Not being able to stop or control worryin = Not at all Worrying too much about different things: 0 = Not at all Trouble relaxin = Not at all Being so restless that it is hard to sit still: 0 = Not at all Becoming easily annoyed or irritable: 0 = Not at all Feeling afraid as if something awful might happen: 0 = Not at all Total TOR-7 score (0-4 normal; 5-9 mild; 10-14 moderate; 15-21 severe): 0 Source: Developed by Trini Lin Kurt Kroenke and colleagues, with an educational soraida from [employer]. TOR-7 Assessment Billing TOR-7 Assessment Tool: TOR-7 Assessment 35693 Review of Systems Const Details: - Gastrointestinal: Reports intermittent abdominal pain and constipation for the past three months. - Endocrine: Reports unintentional weight loss. - Genitourinary: Reports weak urine stream and difficulty initiating urination for the past two weeks. Denies hematuria. - Neurological: Reports fatigue with initial exertion, but denies persistent shortness of breath. Physical exam (Primary Care) Vital Signs: Last Vital Signs Temp 98.1 F 03/18/25 14:12 Pulse 76 03/18/25 14:12 BP 122/76 03/18/25 14:12 Pulse Ox 99 03/18/25 14:12 Care Plan Goal for BP management: <140/90 at Goal BMI result Body Mass Index 30.6 Tobacco/Smoking Status: Tobacco use Status Tobacco use date assessed 02/10/25 03/18/25 13:58 Patient Tobacco Use Status Never used Tobacco 03/18/25 13:58 e-Cigarette/Vaping Use Never Used 03/18/25 13:58 PHQ-9: PHQ-9 Score PHQ-9: Total score 0 03/18/25 14:22 Depression Screening Interpretation: Negative Thrive Assessment: Date of Thrive Assessment Date Thrive assessed 02/26/25 03/18/25 13:58 Const Other: Appearance: Alert. Oriented X3. No acute distress. Head: Normal external exam. Normocephalic. Atraumatic. Eyes: Pupils are equal, round, and reactive to light. Extraocular movements intact. Conjunctiva and sclera normal. Eyelids normal. Ears: External auditory canal normal. Tympanic membranes normal. Throat: Pharynx normal. Uvula midline. Moist mucous membranes. Neck: Normal inspection. Neck supple. Full range of motion. No adenopathy. Thyroid Normal. No meningeal signs. No neck mass noted. Cardiovascular: Normal heart rate and rhythm. Heart sound normal. No murmurs noted. Pulses normal throughout. Respiratory: No respiratory distress. Painless inspiration. Breath sounds normal. No wheezes/rales/rhonchi noted. Chest nontender. No accessory muscle usage noted or decreased air movement noted. Abdomen: Soft and nontender. Bowel sounds normal in all 4 quadrants. No distention noted. No organomegaly noted. No visible injury noted. Back: No costovertebral angle tenderness. Full range of motion noted. Reports pain in the back, either left or right side, not at the same time. Skin: Skin warm and dry. Normal skin color. Normal skin turgor. No rashes/lesions/lacerations noted. Extremities: No lower extremity edema. Extremities exhibit normal range of motion. Extremities nontender. Neuro: Oriented X 3. No motor deficit. No sensory deficit. Reflexes normal. 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 Results Reviewed Results Reviewed: - Labs: Hemoglobin 13.4 g/dL, Hematocrit 39.6%, A1c 12.6%. - Imaging: Recent CT scan showed stable neuroendocrine tumor with metastasis, indeterminate lesion in the proximal femur. Coding Level of Care Code Est Pt Level 4 (55436) Complex EM visit Add On G2211 Diagnoses Flank pain R10.9 Constipation K59.00 Diabetes mellitus E11.9 Neuroendocrine tumor D3A.8 Weak urine stream R39.12 Additional Codes TOR-7 Assessment Billing - TOR-7 Assessment Tool: TOR-7 Assessment 82032 ([id number]) PHQ-9 - 28555 - PHQ-9 Billing: Yes ([id number]) Assessment & Plan Assessment & Plan (1) Flank pain: Code(s): R10.9 - Unspecified abdominal pain Category: Medical Plan: The plan for abdominal pain includes monitoring symptoms and considering further evaluation if symptoms persist or worsen. (2) Constipation: Code(s): K59.00 - Constipation, unspecified Category: Medical Plan: For constipation, the patient is advised to monitor bowel movements and consider dietary adjustments or laxatives if necessary. (3) Diabetes mellitus: Code(s): E11.9 - Type 2 diabetes mellitus without complications Category: Medical Plan: Diabetes management includes continuing metformin and monitoring blood glucose levels regularly. Condition is chronic and stable continue to monitor. (4) Neuroendocrine tumor: Code(s): D3A.8 - Other benign neuroendocrine tumors Category: Medical Plan: The patient will continue regular CT scans to monitor the neuroendocrine tumor and consider chemotherapy as needed. Patient being followed by Oncology. Condition is chronic and stable continue to monitor. (5) Weak urine stream: Code(s): R39.12 - Poor urinary stream Category: Medical Plan: The plan for urinary symptoms includes a referral to urology for further evaluation and consideration of Flomax to improve urine flow. Plan Plan Patient was informed and verbally consented to the use of an ambient scribe for clinic note documentation during this visit. 1. Abdominal Pain The plan for abdominal pain includes monitoring symptoms and considering further evaluation if symptoms persist or worsen. 2. Constipation For constipation, the patient is advised to monitor bowel movements and consider dietary adjustments or laxatives if necessary. 3. Diabetes Mellitus Diabetes management includes continuing metformin and monitoring blood glucose levels regularly. 4. Neuroendocrine Tumor With Metastasis The patient will continue regular CT scans to monitor the neuroendocrine tumor and consider chemotherapy as needed. 5. Urinary Symptoms The plan for urinary symptoms includes a referral to urology for further evaluation and consideration of Flomax to improve urine flow. During the visit, we discussed the patient's abdominal pain and urinary symptoms. I recommended monitoring the abdominal pain and considering further evaluation if it persists. For the urinary symptoms, I suggested a referral to urology and the use of Flomax to improve urine flow. We also reviewed the management of diabetes with metformin and the importance of regular blood glucose monitoring. The patient was informed about the need for regular CT scans to monitor the neuroendocrine tumor and the possibility of chemotherapy. We agreed on a follow-up in two weeks to reassess symptoms and review lab results. Orders: Orders Complete Blood Count Auto Diff 03/18/25 Z00.00 - Encounter for general adult medical examination without abnormal findings Comprehensive Met. Panel 03/18/25 Z00.00 - Encounter for general adult medical examination without abnormal findings UA CC w/rflx Micro + Cult 03/18/25 M54.9 - Dorsalgia, unspecified, R10.9 - Unspecified abdominal pain, R39.12 - Poor urinary stream Medications: New naproxen 500 mg PO BID 30 tabs 0RF cyclobenzaprine 10 mg PO Q8H 30 tabs 0RF tamsulosin (Flomax) 0.4 mg PO DAILY 90 caps 1RF Patient Instructions: - Monitor abdominal pain and report any worsening symptoms. - Follow dietary recommendations to manage constipation. - Continue taking metformin as prescribed and monitor blood sugar levels. - Schedule a follow-up appointment with urology for urinary symptoms. - Attend regular CT scan appointments to monitor the neuroendocrine tumor. - Return for a follow-up visit in two weeks.
[2025-03-18 14:12] VITALS: BP 122/76; PULSE 76; TEMP 36.7; O2SAT 99; BMI 30.6
== END 2025-03-18 14:40 | disposition home or self-care (01) ==
LOC: HO.HMCSH 13:33
PROVIDERS: PCP Internal Medicine; Visit Provider Physician Assistant Medical
DX: R10.9 Unspecified abdominal pain (principal); K59.00 Constipation, unspecified; E11.9 Type 2 diabetes mellitus without complications; D3A.8 Other benign neuroendocrine tumors; R39.12 Poor urinary stream

== ENCOUNTER → 2025-03-18 13:33 | Outpatient (BNVA) | payer OTHER, SELFPAY | PROVIDERS: PCP Internal Medicine; Visit Provider Physician Assistant Medical | DX: E11.9 Type 2 diabetes mellitus without complications (principal); R10.9 Unspecified abdominal pain; K59.00 Constipation, unspecified; D3A.8 Other benign neuroendocrine tumors; R39.12 Poor urinary stream | CPT/HCPCS: 96127 ==

== ENCOUNTER 2025-03-31 09:26 | Outpatient (REF) | payer OTHER, SELFPAY ==
[2025-03-31 10:11] LABS: MANUAL DIFF FLAG NO
[2025-03-31 10:19] LABS: Hematocrit 36.6 % (42.0-52.0); Hemoglobin 12.3 g/dl (14.0-18.0); Imm Gran Abs Auto 0.04 X10*3/uL (0.00-0.03); Imm Gran Pct Auto 0.6 % (0.0-0.4); Lymphocytes Absolute Auto 0.7 X10*3/uL (1.2-4.9); Mean Corpuscular HGB Conc 33.6 g/dl (31.0-36.0); Mean Corpuscular Hemoglobin 32.0 pg (27.0-33.0); Mean Corpuscular Volume 95.3 fL (80.0-98.0); NRBC Abs Auto 0.000 X10*3/uL (0.0-0.012); NRBC Pct Auto 0.0 /100WBC (0.0-0.2); Platelet Count 320 X10*3/uL (160-400); Red Blood Count 3.84 X10*6/uL (4.60-5.80); White Blood Count 6.2 X10*3/uL (4.8-10.8)
[2025-03-31 10:28] LABS: Appearance Urine Cloudy; Glucose Urine UA Negative (Negative); PH 5.0 (5.0-9.0); Specific Gravity - Urine >= 1.030 (1.005-1.025)
[2025-03-31 10:58] LABS: Alanine Aminotransferase 25 U/L (0-40); Albumin Level 4.3 g/dL (3.5-5.0); Alkaline Phosphatase 88 U/L (39-117); Anion Gap 14 (12-20); Aspartate Amino Transferase 37 U/L (5-37); Blood Urea Nitrogen 25 mg/dL (9-16); Calcium 9.3 mg/dL (8.4-10.2); Carbon Dioxide 25 mmol/L (22-29); Chloride 104 mmol/L (96-108); Cholesterol 161 mg/dL (<200); Estimated Glomerular Filt Rate > 60; HDL Cholesterol 36 mg/dL (>40); Potassium 5.1 mmol/L (3.3-5.1); Sodium 138 mmol/L (135-145); Total Protein 7.9 g/dL (6.5-8.0); Triglycerides 89 mg/dL (<150)
[2025-03-31 11:01] LABS: Microalbum/Creatinine Ratio Ur 10.8 ug/mg cr (<30)
== END 2025-03-31 09:27 | disposition home or self-care (01) ==
LOC: HO.10HDL 09:26
PROVIDERS: Physician Assistant Medical; Visit Provider Internal Medicine
DX: Z00.00 Encounter for general adult medical examination without abnormal findings (principal); E11.9 Type 2 diabetes mellitus without complications; D3A.8 Other benign neuroendocrine tumors; R10.9 Unspecified abdominal pain; M54.9 Dorsalgia, unspecified; R39.12 Poor urinary stream; I25.10 Atherosclerotic heart disease of native coronary artery without angina pectoris
CPT/HCPCS: 36415; 80053; 80061; 81003; 82043; 82248; 82570; 85025

== ENCOUNTER 2025-04-01 15:06 | Outpatient (AMB) | payer OTHER, SELFPAY ==
--- NOTE | 2025-04-01 15:25 | A.OFFPC_ITS ---
Vital Signs 04/01/25 15:26 04/01/25 17:04 04/01/25 17:04 Height 6 ft 1 in Weight 233 lb 6 oz BMI 30.8 BP 128/92 H 121/69 108/80 Blood Pressure Location Rt brachial Lt brachial Lt brachial Position Sitting Sitting Standing Respiration 16 Pulse 78 Pulse Source Pulse Oximeter Temp 97.3 F Temp Source Temporal Artery Scan Pulse Oximetry (%) 98 Oxygen Delivery Method Room Air Intake Visit Reasons: follow up Intake Note: urine stream has been weak since the past 3 weeks feels when hes urinating and moves he says he stops with out thinking of stopping. 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) As directed NS Dexcom G6 Sensor (blood-glucose sensor) every 10 days NS [Dexcom G6 strips As directed] Dexcom G6 Transmitter (blood-glucose transmitter) As directed NS gabapentin 100 mg PO DAILY PRN levothyroxine (Synthroid) 50 mcg PO DAILY meclizine 25 mg PO TID PRN metformin ER (Fortamet) 1,000 mg PO BID 90 days miscellaneous medical supply Dexcom G6 Glucose meter naproxen 500 mg PO BID oxycodone 5 mg PO Q6H PRN tadalafil (Cialis) 10 mg PO DAILY PRN tamsulosin (Flomax) 0.4 mg PO DAILY Tobacco use date assessed: 02/10/25 Dental Screening Dental Screen Date: 02/26/25 Did you have a dental visit in the last 12 months?: Yes Did you have a dental problem in the last 6 months where you did not have access to dental care?: No Was dental information given to patient?: Patient has dentist HPI follow up HPI Details The patient is a 59-year-old male presenting for a follow-up visit. He has a history of chronic anemia, with recent lab results showing a hemoglobin level of 12.3 g/dL, which is slightly below normal. The anemia is suspected to be due to insufficient dietary iron intake, and further testing including ferritin and iron profile levels has been ordered to rule out hereditary anemia. The patient has type 2 diabetes mellitus and has been managing it with metformin. He reports significant weight loss, which he attributes to intermittent fasting and metformin use, but expresses concern about losing muscle mass. His recent HbA1c was 7.7%, and he is advised to aim for a level below 7%. The patient is also being treated for hypothyroidism, with recent initiation of levothyroxine therapy. A follow-up thyroid function test is planned to assess the effectiveness of the treatment. He experiences orthostatic hypotension, characterized by dizziness upon standing, which is suspected to be related to dehydration. He is advised to increase his fluid intake to manage this condition. The patient reports urinary symptoms, including burning sensation at the end of urination and weak urine flow when the bladder is not full. A referral to a urologist has been made for further evaluation. He also reports erectile dysfunction, for which a trial of tadalafil has been initiated to replace sildenafil, which caused dizziness. Preventative care measures include a recent negative result from a colon cancer screening stool test. Social History - Exercise: Patient engages in intermitt ent fasting and has experienced significant weight loss. - Nutrition: Reports dietary intake focu sed on proteins, but experiences loss of appetite and sometimes consumes carbohydrates. [facility] Medical History (Updated 04/01/25 @ 17:14 by Sandra Luo PA-C) Erectile dysfunction Orthostatic hypotension Hypothyroidism Type 2 diabetes mellitus with hemoglobin A1c goal of less than 7.0% Chronic anemia Dysuria Constipation Weak urine stream Back pain Flank pain Hyperlipidemia Neuroendocrine tumor Diabetes mellitus Cancer Morbidly obese Excessive daytime sleepiness MARIKA (obstructive sleep apnea) Obesity (BMI 30-39.9) Family History Mother Breast cancer Diabetes Father No problems noted. 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 1. Little interest or pleasure in doing things: not at all 2. Feeling down, depressed, or hopeless: not at all 3. Trouble falling or staying asleep, or sleeping too much: not at all 4. Feeling tired or having little energy: not at all 5. Poor appetite or overeating: not at all 6. Feeling bad about yourself - or that you are a failure or have let yourself or your family down: not at all 7. Trouble concentrating on things, such as reading the newspaper or watching television: not at all 8. Moving or speaking so slowly that other people could have noticed. Or the opposite - being so fidgety or restless that you have been moving around a lot more than usual: not at all 9. Thoughts that you would be better off or of hurting yourself in some way: not at all Total score: 0 Depression Screening Interpretation: Negative Depression Screening Done: Yes 23316 - PHQ-9 Billing: Yes Source: Developed by Drs. Otoniel Gray, Trini Rowland, Marvin Walden and colleagues, with an educational soraida from [employer]. Thrive Questionnaire Date Thrive assessed: 02/26/25 I am a: Patient What is your living situation today?: I have a steady place to live Within the past 12 months, did the food you bought not last and you didn't have the money to get more?: Never true Within the past 12 months, did you worry whether your food would run out before you got money to buy more?: Never true Do you have trouble paying for medicines?: No Do you have trouble getting transportation to medical appointments?: No Do you have trouble paying your heating and electricity bill?: No Do you have trouble taking care of your child, family member or friend?: No Do you have trouble with day-to-day activities such as bathing, preparing meals, shopping, managing finances, etc.?: No Are you currently unemployed and looking for a job?: No Are you interested in more education?: No THRIVE Score: 0 AUDIT C Alcohol Use Questionnaire (AUDIT-C) 1. How often do you have a drink containing alcohol?: Never 3. How often do you have six or more drinks on one occasion?: Never Total Score: 0 Score Reviewed/Action Taken: No TOR-7 AMB Questionnaire TOR-7 Date TOR - 7 assessed: 02/26/25 Feeling nervous, anxious, or on edge: 0 = Not at all Not being able to stop or control worryin = Not at all Worrying too much about different things: 0 = Not at all Trouble relaxin = Not at all Being so restless that it is hard to sit still: 0 = Not at all Becoming easily annoyed or irritable: 0 = Not at all Feeling afraid as if something awful might happen: 0 = Not at all Total TOR-7 score (0-4 normal; 5-9 mild; 10-14 moderate; 15-21 severe): 0 Source: Developed by Drs. Otoniel Gray, Trini Rowland, Marvin Walden and colleagues, with an educational soraida from [employer]. TOR-7 Assessment Billing TOR-7 Assessment Tool: TOR-7 Assessment 30144 Review of Systems Const Details: - Gastrointestinal: Denies black or bloody stools, reports intermittent loss of appetite. - Genitourinary: Reports burning sensation at the end of urination, weak urine flow when bladder is not full. - Neurological: Reports dizziness upon standing, denies changes in vision or weakness. - Endocrine: Reports weight loss, denies unintentional weight loss. Physical exam (Primary Care) Vital Signs: Last Vital Signs Temp 97.3 F 04/01/25 15:26 Pulse 78 04/01/25 15:26 Resp 16 04/01/25 15:26 BP 128/92 H 04/01/25 15:26 Pulse Ox 98 04/01/25 15:26 Oxygen Delivery Method Room Air 04/01/25 15:26 Care Plan Goal for BP management: <140/90 at Goal BMI result Body Mass Index 30.8 BMI Assessment/Plan discussion: High BMI High, discussed plan: lifestyle, weight reduction, dietary, physical activity and alcohol moderation Tobacco/Smoking Status: Tobacco use Status Tobacco use date assessed 02/10/25 04/01/25 15:37 Patient Tobacco Use Status Never used Tobacco 04/01/25 15:37 e-Cigarette/Vaping Use Never Used 04/01/25 15:37 PHQ-9: PHQ-9 Score PHQ-9: Total score 0 04/01/25 15:37 Depression Screening Interpretation: Negative Thrive Assessment: Date of Thrive Assessment Date Thrive assessed 02/26/25 04/01/25 15:37 Const Other: Appearance: Alert. Oriented X3. No acute distress. Head: Normal external exam. Normocephalic. Atraumatic. Eyes: Pupils are equal, round, and reactive to light. Extraocular movements intact. Conjunctiva and sclera normal. Eyelids normal. Throat: Pharynx normal. Uvula midline. Moist mucous membranes. Neck: Normal inspection. Neck supple. Full range of motion. Cardiovascular: Normal heart rate and rhythm. Heart sound normal. No murmurs noted. Pulses normal throughout. Respiratory: No respiratory distress. Painless inspiration. Breath sounds normal. No wheezes/rales/rhonchi noted. Chest nontender. No accessory muscle usage noted or decreased air movement noted. Abdomen: Soft and nontender. Back: No costovertebral angle tenderness. Full range of motion noted. Skin: Skin warm and dry. Normal skin color. Normal skin turgor. No rashes/lesions/lacerations noted. Extremities: No lower extremity edema. Extremities exhibit normal range of motion. Neuro: Oriented X 3. No motor deficit. No sensory deficit. Reflexes normal. Results Reviewed Results Reviewed: - Labs: Hemoglobin 12.3 g/dL, HbA1c 7.7%, random glucose 125 mg/dL, BUN 25 mg/dL indicating dehydration. - Tests: Colon cancer screening with stool test negative. Coding Level of Care Code Est Pt Level 4 (01862) Complex EM visit Add On G2211 Diagnoses Chronic anemia D64.9 Type 2 diabetes mellitus with hemoglobin A1c goal of less than 7.0% E11.9 Hypothyroidism E03.9 Orthostatic hypotension I95.1 Erectile dysfunction N52.9 Dysuria R30.0 Additional Codes TOR-7 Assessment Billing - TOR-7 Assessment Tool: TOR-7 Assessment 55577 ([id number]) PHQ-9 - 52474 - PHQ-9 Billing: Yes ([id number]) Assessment & Plan Assessment & Plan (1) Chronic anemia: Code(s): D64.9 - Anemia, unspecified Category: Medical Plan: Further evaluation with ferritin and iron profile levels has been ordered to determine the cause of anemia and rule out hereditary anemia. The patient is advised to increase dietary iron intake. (2) Type 2 diabetes mellitus with hemoglobin A1c goal of less than 7.0%: Code(s): E11.9 - Type 2 diabetes mellitus without complications Category: Medical Plan: The patient is advised to continue metformin therapy and aim for an HbA1c level below 7%. A1c 1 month ago was 7.7. Dietary modifications and monitoring of blood glucose levels are recommended. Condition is chronic and stable continue to monitor. (3) Hypothyroidism: Code(s): E03.9 - Hypothyroidism, unspecified Category: Medical Plan: Levothyroxine therapy has been initiated, and a follow-up thyroid function test is planned to assess treatment efficacy. Condition is chronic and stable continue to monitor. (4) Orthostatic hypotension: Code(s): I95.1 - Orthostatic hypotension Category: Medical Plan: The patient is advised to increase fluid intake to manage symptoms of dizziness upon standing. Will continue to monitor no focal deficits patient instructed to go to the emergency department if dizziness worsens or persists. (5) Erectile dysfunction: Code(s): N52.9 - Male erectile dysfunction, unspecified Category: Medical Plan: A trial of tadalafil has been initiated to replace sildenafil, which caused d izziness. Will continue to monitor. (6) Dysuria: Code(s): R30.0 - Dysuria Category: Medical Plan: UA placed at this time with culture. Patient denies any UTI like symptoms he reports. A referral to a urologist has been made for further evaluation of urinary symptoms. Will continue to monitor. Plan Plan Patient was informed and verbally consented to the use of an ambient scribe for clinic note documentation during this visit. 1. Chronic Anemia Further evaluation with ferritin and iron profile levels has been ordered to determine the cause of anemia and rule out hereditary anemia. The patient is advised to increase dietary iron intake. 2. Type 2 Diabetes Mellitus The patient is advised to continue metformin therapy and aim for an HbA1c level below 7%. Dietary modifications and monitoring of blood glucose levels are recommended. 3. Hypothyroidism Levothyroxine therapy has been initiated, and a follow-up thyroid function test is planned to assess treatment efficacy. 4. Orthostatic Hypotension The patient is advised to increase fluid intake to manage symptoms of dizziness upon standing. 5. Erectile Dysfunction A trial of tadalafil has been initiated to replace sildenafil, which caused dizziness. 6. Urinary Symptoms A referral to a urologist has been made for further evaluation of urinary symptoms. During the visit, we discussed the management of chronic anemia, including the need for further testing to determine the cause and the importance of dietary iron intake. We reviewed the patient's diabetes management, emphasizing the goal of achieving an HbA1c below 7% and the role of dietary modifications. The initiation of levothyroxine for hypothyroidism was addressed, with plans for follow-up testing to assess treatment efficacy. We also discussed the symptoms of orthostatic hypotension and the need for increased fluid intake. For erectile dysfunction, we decided to trial tadalafil due to side effects from sildenafil. A referral to a urologist was made to evaluate urinary symptoms. Preventative care measures, including the recent negative colon cancer screening, were also reviewed. Orders: Orders Ferritin Today D64.9 - Anemia, unspecified IRON PROFILE Today D64.9 - Anemia, unspecified TSH reflex Free T4 Today Z00.00 - Encounter for general adult medical examination without abnormal findings UA CC w/rflx Micro + Cult Today R30.0 - Dysuria Referrals Urology Referral R10.9 - Unspecified abdominal pain, R30.0 - Dysuria, R39.12 - Poor urinary stream Medications: New metformin ER (Fortamet) 1,000 mg PO BID 180 tabs 3RF 90 days tadalafil (Cialis) administer approximately 30min before sexual activity; do not use more than 1 dose per 24hrs 10 mg PO DAILY PRN 14 tabs 3RF sexual activity Refilled naproxen 500 mg PO BID 60 tabs 3RF Discontinued metformin Discontinued Reason: Doctor's Order 1,000 mg (2 x 500 mg) PO BID 360 tabs 0RF 90 days Patient Instructions: - Increase dietary iron intake to help manage anemia. - Continue metformin therapy and monitor blood glucose levels regularly. - Follow up with thyroid function test in six weeks to assess levothyroxine treatment. - Increase fluid intake to manage dizziness from orthostatic hypotension. - Start tadalafil as directed for erectile dysfunction. - Attend urology appointment for further evaluation of urinary symptoms.
[2025-04-01 15:26] VITALS: BP 128/92; PULSE 78; RESP 16; TEMP 36.3; O2SAT 98; BMI 30.8
--- OUTSIDE RECORDS SUMMARY | 2025-04-01 16:09 | XMS_ITS | Encounter Summary ---
Author Organization [facility] Address [address] [place] [phone] Phone Care Team Providers Care College Athletic Director Name Role Phone Santino Marie MD Primary Care Provider Ghanshyam Rodriges MD Unavailable Luis Fernando Mejia MD Unavailable Encounter Details Date Type Department Care Team (Late st Contact Info) Description 07/21/2020 Procedure Pass [facility] Endoscopy Admitting Dept Virtual Department [address] [place] [id number] Social History Tobacco Use Types Packs/Day Years Used Date Smoking Tobacco: Never Smokeless Tobacco: Never Alcohol Use Standard Drinks/Week Comments No 0 (1 standard drink = 0.6 oz pur e alcohol) Sex and Gender Information Value Date Recorded Sex Assigned at Male 11/19/2018 12:13 AM EDT Legal Sex Male 6:44 PM EST Gender Identity Male 11/19/2018 12:13 AM EDT Sexual Orientation Straight 11/19/2018 12 :13 AM EDT documented as of this encounter Plan of Treatment Not on file documented as of this encounter Visit Diagnoses Not on filedocumented in this encounter Additional Health Concerns Infection Onset Date Last Indicated Resolved Time CoV-Risk 03/02/2021 03/02/2021 03/12/2021 1:24 AM EDT CoV-Risk 09/23/2023 09/23/2023 10/04/2023 1:22 AM EST Assessment Noted Time PHQ-2 Depression Total Score: 0 12/13/19 11:47 AM EDT documented as of this encounter Care Teams College Athletic Director Relationship Specialty Start Date End Date Santino Marie MD [address] [place] [address] [place] [address] PCP - General Internal Medicine 11/19/18 Ghanshyam Rodriges MD [address] [facility] Hematology/[place] [address] [email or web address] 12/28/18 Luis Fernando Mejia MD [address] [place] [phone] [email or web address] Oncology 04/30/24 documented as of this encounter Additional Source Comments The information contained in this document represents components of the legal health record. It is not the complete legal health record.[facility]
[2025-04-01 17:04] VITALS: BP 108/80; BP 121/69
== END 2025-04-01 16:10 | disposition home or self-care (01) ==
LOC: HO.HMCSH 15:06
PROVIDERS: PCP Internal Medicine; Visit Provider Physician Assistant Medical
DX: D64.9 Anemia, unspecified (principal); E11.9 Type 2 diabetes mellitus without complications; E03.9 Hypothyroidism, unspecified; I95.1 Orthostatic hypotension; N52.9 Male erectile dysfunction, unspecified; R30.0 Dysuria

== ENCOUNTER → 2025-04-01 15:06 | Outpatient (BNVA) | payer OTHER, SELFPAY | PROVIDERS: PCP Internal Medicine; Visit Provider Physician Assistant Medical | DX: E11.9 Type 2 diabetes mellitus without complications (principal); D64.9 Anemia, unspecified; E03.9 Hypothyroidism, unspecified; N52.9 Male erectile dysfunction, unspecified; I95.1 Orthostatic hypotension; R30.0 Dysuria; Z79.84 Long term (current) use of oral hypoglycemic drugs; Z79.899 Other long term (current) drug therapy | CPT/HCPCS: 96127 ==

== ENCOUNTER 2025-06-02 15:23 | Outpatient (AMB) | payer OTHER, SELFPAY ==
--- NOTE | 2025-06-02 15:28 | MHC.OFFVIS ---
Intake Visit Reasons: weak urine flow/ erectile dysfunction Intake Note: Patient is present for WEAK URINE FLOW/ERECTILE DYSFUNCTION Urology Medication:TADALAFIL,TAMSULOSIN Antibiotic Allergy:NONE Blood Thinner:NONE TODAY'S PVR:0ML'S Orthopedic Surgeon Required: No Allergies No Known Allergies Allergy (Verified 06/02/25 20:26) Medication List - Last Reconciled 06/02/25 by MATHEUS MorenoP- atorvastatin (Lipitor) 10 mg PO DAILY blood sugar diagnostic (Freestyle InsuLinx strips) As directed- daily blood-glucose meter (Freestyle InsuLinx meter) As directed- daily [Dexcom G6 glucose monitor As directed] [Dexcom G6 lancets As directed] Dexcom G6 Van Owner Operator (blood-glucose,fermenting cellars receiver,cont) As directed NS Dexcom G6 Sensor (blood-glucose sensor) every 10 days NS [Dexcom G6 strips As directed] Dexcom G6 Transmitter (blood-glucose transmitter) As directed NS levothyroxine (Synthroid) 50 mcg PO DAILY meclizine 25 mg PO TID PRN metformin 1,000 mg PO BID 90 days miscellaneous medical supply Dexcom G6 Glucose meter naproxen 500 mg PO BID oxycodone 5 mg PO Q6H PRN tadalafil (Cialis) 10 mg PO .PRN PRN 30 days tamsulosin (Flomax) 0.4 mg PO DAILY 90 days HPI Comments Details: Shyam is a very pleasant 59-year-old male patient of Dr. Joel. He has a past medical history of orthostatic hypotension, ED, hypothyroidism, type 2 diabetes, chronic anemia, constipation, weak urinary stream, hyperlipidemia, neuroendocrine tumor follows [facility], obesity, and obstructive sleep apnea. He presents to the office today as a new patient for lower urinary tract symptoms and erectile dysfunction. In discussion with the patient today he reports having followed up with his PCP as he had previously been experiencing episodes with urinary hesitancy, nocturia and weak urinary stream. He reports PCP initiated tamsulosin and he currently feels he has no bothersome urinary issues. He reports Flomax has been extremely helpful in lower urinary tract symptoms he had been experiencing. He also reports ED however takes p.r.n. tadalafil 10 mg as needed prior to sexual activity and feels this is helpful in maintaining his erections. He discusses his history of cancer and follows up at the [facility] at [facility] and undergo surveillance monitoring. When asked he denies urinary urgency, urinary frequency, incontinence, nocturia, hematuria, dysuria, foul smelling urine, changes to urinary stream, flank pain, fever, and or chills. He is happy with his current voiding parameters. In review of patient's chart it appears PSA 03/05 0.3. We did discussed potential causes of lower urinary tract symptoms patient was experiencing as well as further treatment options and risks and benefits of these treatment options. We also discussed erectile dysfunction as well as importance of lifestyle modification and further treatment options and risks and benefits of these treatment options. In office urinalysis results reviewed with the patient today. PVR 0 mL. All questions were answered. He otherwise offers no other issues or concerns. A1c: 11/02 6.4, 01/31 6.4, 11/05 12.9, 03/05 7.7 [facility] Medical History (Updated 06/02/25 @ 20:38 by Jessica Kan [facility]) Colon cancer screening (~02/26/25) Orthostatic hypotension Hypothyroidism Type 2 diabetes mellitus with hemoglobin A1c goal of less than 7.0% Chronic anemia Dysuria Constipation Weak urine stream Back pain Flank pain Hyperlipidemia Neuroendocrine tumor Diabetes mellitus Cancer Morbidly obese Excessive daytime sleepiness MARIKA (obstructive sleep apnea) Obesity (BMI 30-39.9) Family History Mother Breast cancer Diabetes Father No problems noted. 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 Cognitive needs: No Hearing needs: No Vision needs: Yes (reading glasses) Review of Systems Const All systems reviewed & are unremarkable except as noted in HPI and below Physical Exam Const General: cooperative, healthy appearing, comfortable, no acute distress, well developed, alert and awake Orientation/consciousness: patient oriented x3 Limitations: no limitations HEENT Head: Yes normal to inspection, Yes normocephalic and Yes atraumatic Ears: hearing grossly normal bilaterally Eyes General: appearance normal, both eyes and all related structures Neck Neck: Yes normal visual inspection and Yes trachea midline Chest Chest palpation & inspection: normal inspection of the chest Resp Effort & Inspection: normal respiratory effort and able to speak in complete sentences Cardio Rate: regular rate GI Inspection: Yes normal to inspection General: Yes no CVA tenderness Back/Spine/Pelvis Back: no CVA tenderness Skin General skin exam: no rashes or lesions noted Neuro General: patient oriented x3 Extrem General: Yes normal to inspection Psych Appearance: grossly normal and well kempt Mental Status: mental status grossly normal Speech and movement: Normal speech and movement present and Clear speech present Affect: normal affect Attitude: cooperative Thought process: Normal thought process present Thought content: Normal thought content present Insight: Fair insight present (Psych) Judgement: Fair judgement present (Psych) Office Procedures Post Void Residual Post Residual Void Post Void Residual (PVR): 0 90324-Grhn Void Residual by ultrasound Results AMB Urinalysis, Automated UA Leukoctes 0 Scott/uL Last Edit by Abimael Mcelroy [facility] on 06/02/25 15:48 UA Nitrite Negative Last Edit by Abimael Mcelroy [facility] on 06/02/25 15:48 UA Urobilinogen 0.2 mg/dL Last Edit by Abimael Mcelroy [facility] on 06/02/25 15:48 UA Protein 0 mg/dL Last Edit by Abimael Mcelroy [facility] on 06/02/25 15:48 UA pH 6.0 Last Edit by Abimael Mcelroy [facility] on 06/02/25 15:48 UA Blood 0 Jed/uL Last Edit by Abimael Mcelroy [facility] on 06/02/25 15:48 UA Specific Bitely 1.020 Last Edit by Abimael Mcelroy [facility] on 06/02/25 15:48 UA Ketone Negative Last Edit by Abimael Mcelroy [facility] on 06/02/25 15:48 UA Bilirubin 0 mg/dL Last Edit by Abimael Mcelroy [facility] on 06/02/25 15:48 UA Glucose 0 mg/dL Last Edit by Abimael Mcelroy [facility] on 06/02/25 15:48 Results Reviewed Results Reviewed: Laboratory Last Values Urine pH (Auto) 6.0 06/02/25 15:48 Specific Bitely (Auto) 1.020 06/02/25 15:48 Urine Protein (Auto) 0 mg/dL 06/02/25 15:48 Glucose (UA)(Auto) 0 mg/dL 06/02/25 15:48 Urine Ketones (Auto) Negative 06/02/25 15:48 Urine Blood (Auto) 0 Jed/uL 06/02/25 15:48 Urine Nitrite (Auto) Negative 06/02/25 15:48 Urine Bilirubin (Auto) 0 mg/dL 06/02/25 15:48 Urine Urobilinogen (Auto) 0.2 mg/dL 06/02/25 15:48 Leukocyte Esterase (Auto) 0 Scott/uL 06/02/25 15:48 Assessment & Plan Assessment & Plan (1) Weak urine stream: Code(s): R39.12 - Poor urinary stream Category: Medical (2) Erectile dysfunction: Code(s): N52.9 - Male erectile dysfunction, unspecified Category: Medical (3) Erectile dysfunction associated with type 2 diabetes mellitus: Code(s): E11.69 - Type 2 diabetes mellitus with other specified complication; N52.1 - Erectile dysfunction due to diseases classified elsewhere Category: Medical Plan In office urinalysis results reviewed with the patient today; as noted above. Most recent PSA results reviewed with the patient today; as noted above. Continue Flomax Continue p.r.n. Cialis Refills provided. We discussed obtaining retroperitoneal ultrasound for further assessment evaluation. We discussed importance of managing diabetes for improvement in urological conditions as well as overall health and well-being. PVR 0 mL We discussed potential causes of lower urinary tract symptoms patient was experiencing as well as erectile dysfunction; we did discussed further treatment options of these urological conditions and risks and benefits of these treatment options. We discussed importance of limiting fluids 2-3 hours prior to bed to decrease episodes of nocturia. All questions were answered. Follow-up in 6 months with imaging and PVR to be completed prior; or sooner with any issues, concerns, and or questions. Orders: Orders AMB Urinalysis Automated Today Z13.9 - Encounter for screening, unspecified US retroperitoneal comp Today R39.12 - Poor urinary stream Medications: Changed From tamsulosin (Flomax) 0.4 mg PO DAILY 90 caps 1RF To tamsulosin (Flomax) 0.4 mg PO DAILY 90 caps 1RF 90 days From tadalafil (Cialis) administer approximately 30min before sexual activity; do not use more than 1 dose per 24hrs 10 mg PO DAILY PRN 14 tabs 3RF sexual activity To tadalafil (Cialis) Take 1 hour prior to sexual activity; not to exceed more than 3 times per week [id number] [facility] Group[facility] Member [id number] 10 mg PO .PRN PRN 10 tabs 6RF sexual activity 30 days Patient Instructions: The patient had an opportunity to ask questions regarding the treatment plan. All questions were answered. Physical exam, labs, and imaging were discussed and reviewed in detail. As well as risks, benefits, and discussion of treatment choices. No major barriers to understanding were identified. The patient expressed understanding and agreement with the above treatment plan. The patient was made aware they should contact our office by phone for worsening of their current condition, the appearance of new symptoms, or with any questions or concerns. Compliance is encouraged with any medications and follow up testing that is ordered. It is a privilege to be allowed the opportunity to participate in? your urological care.? Again, if you have any questions or concerns If you have any questions or concerns please do not hesitate to contact me. The office is [phone]. This note is constructed using voice recognition software. While every effort has been made to ensure accuracy scrap yard worker errors may have been included. Yours sincerely, BLAKE Moreno Coding Level of Care Code New Pt Level 3 (69666) Diagnoses Weak urine stream R39.12 Erectile dysfunction N52.9 Erectile dysfunction associated with type 2 diabetes mellitus E11.69; N52.1 CPT Codes Post Residual Void - PVR CPT Code: 98601-Gygo Void Residual by ultrasound ([id number])
== END 2025-06-02 16:06 | disposition home or self-care (01) ==
LOC: HO.HUSH 15:24
PROVIDERS: PCP Internal Medicine; Visit Provider Nurse Practitioner Family
DX: R39.12 Poor urinary stream (principal); N52.9 Male erectile dysfunction, unspecified; E11.69 Type 2 diabetes mellitus with other specified complication; N52.1 Erectile dysfunction due to diseases classified elsewhere; Z13.9 Encounter for screening, unspecified
CPT/HCPCS: 99203

== ENCOUNTER → 2025-06-02 15:23 | Outpatient (BNVA) | payer OTHER, SELFPAY | PROVIDERS: PCP Internal Medicine; Visit Provider Nurse Practitioner Family | DX: R39.12 Poor urinary stream (principal); N52.1 Erectile dysfunction due to diseases classified elsewhere | CPT/HCPCS: 51798; 81003 ==

== ENCOUNTER 2025-07-09 13:05 | Outpatient (AMB) | payer OTHER, SELFPAY ==
--- NOTE | 2025-07-09 12:47 | MHC.PC.OV ---
Vital Signs 07/09/25 13:19 Height 6 ft 0.24 in Weight 101.605 kg BMI 30.2 BP 110/74 Blood Pressure Location Lt brachial Position Sitting Respiration 18 Pulse 82 Pulse Source Pulse Oximeter Temp 97.8 F Temp Source Temporal Artery Scan Pulse Oximetry (%) 98 Oxygen Delivery Method Room Air Intake Visit Reasons: Routine Senior Back End Java Developer Required: No Accompanied by: Self / Same As Patient Allergies No Known Allergies Allergy (Verified 07/09/25 12:47) Medication List - Last Reconciled 07/09/25 by MEET Lala aspirin 81 mg PO DAILY atorvastatin (Lipitor) 10 mg PO DAILY blood sugar diagnostic (Freestyle InsuLinx strips) As directed- daily blood-glucose meter (Freestyle InsuLinx meter) As directed- daily cabozantinib (Cabometyx) 40 mg PO DAILY cholecalciferol (vitamin D3) 50 mcg PO DAILY [Dexcom G6 glucose monitor As directed] [Dexcom G6 lancets As directed] Dexcom G6 Requirements Engineer (blood-glucose,telephone surveyor,cont) As directed NS Dexcom G6 Sensor (blood-glucose sensor) every 10 days NS [Dexcom G6 strips As directed] Dexcom G6 Transmitter (blood-glucose transmitter) As directed NS levothyroxine (Synthroid) 50 mcg PO DAILY meclizine 25 mg PO TID PRN metformin 1,000 mg PO ONCE miscellaneous medical supply Dexcom G6 Glucose meter oxycodone 15 mg PO Q6H PRN oxycodone 15 mg PO BID PRN polyethylene glycol 3350 (Gavilax) grams PO sennosides (senna) 17.2 mg PO BEDTIME PRN tadalafil (Cialis) 10 mg PO .PRN PRN 30 days tamsulosin (Flomax) 0.4 mg PO DAILY 90 days Tobacco use date assessed: 02/10/25 Dental Screening Dental Screen Date: 02/26/25 HPI HPI Comments History of Present Illness Details 59-year-old male with history of type 2 diabetes, hypothyroidism, vertigo, for management of chronic conditions. Former patient of Dr. Marie, last seen about 9 months ago and saw Dr. Galicia about 6 months ago Type 2 DM- glucose today down 60 pounds with improvement in glucose levels. He is on metformin OA/Chronic pain disorder- multiple joints. Taking oxycodone 1-2 times daily. Was taking 5mg but wasnt helping and then 10 which still didnt help. CAD/HLD-following with Dr. Jarrell. On aspirin, atorvastatin BPH-managed with Cialis and Flomax Neuroendocrine tumor-following with [facility]. Underwent radiation-Dr. Rodriges. Maintenance with Cabometyx Concerns: Constipation- regular currently take stool softener. Still soreness in the abdomen. Reports he feels the stool moving through the intestines . Better since BMs. Doesnt always gets better. No urinary issues. No blood in the stool. Last cologuard 2months ago. Last colonoscopy 2 years ago, 10 year follow up ROS: See HPI EXAM: Constitutional - Awake and Alert, No apparent distress Eyes - PERRL Cardiovascular - S1S2, RRR, No edema Respiratory - Normal lung expansion, Normal respiratory effort, No respiratory distress, CTA bilaterally Extremities - no calf tenderness bilaterally, no swelling Skin - Warm/Dry Neurological - Alert & oriented x3 Psychological - Appropriate affect [facility] Medical History (Updated 07/09/25 @ 13:40 by MEET Lala) Colon cancer screening (~02/26/25) Orthostatic hypotension Hypothyroidism Type 2 diabetes mellitus with hemoglobin A1c goal of less than 7.0% Chronic anemia Dysuria Constipation Weak urine stream Back pain Flank pain Hyperlipidemia Neuroendocrine tumor Diabetes mellitus Cancer Morbidly obese Excessive daytime sleepiness MARIKA (obstructive sleep apnea) Obesity (BMI 30-39.9) Family History Mother Breast cancer Diabetes Father No problems noted. 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 Otoniel Gray, Trini Rowland, Marvin Walden and colleagues, with an educational soraida from [employer]. Physical exam (Primary Care) Vital Signs: Last Vital Signs Temp 97.8 F 07/09/25 13:19 Pulse 82 07/09/25 13:19 Resp 18 07/09/25 13:19 BP 110/74 07/09/25 13:19 Pulse Ox 98 07/09/25 13:19 Oxygen Delivery Method Room Air 07/09/25 13:19 BMI result Body Mass Index 30.2 Tobacco/Smoking Status: Tobacco use Status Tobacco use date assessed 02/10/25 07/09/25 12:47 Patient Tobacco Use Status Never used Tobacco 07/09/25 12:47 e-Cigarette/Vaping Use Never Used 07/09/25 12:47 Thrive Assessment: Date of Thrive Assessment Date Thrive assessed 02/26/25 07/09/25 12:47 Coding Level of Care Code Est Pt Level 4 (09754) Complex EM visit Add On G2211 Diagnoses CAD (coronary artery disease) I25.10 Hyperlipidemia E78.5 Diabetes mellitus E11.9 Hypothyroidism E03.9 Constipation K59.00 Assessment & Plan Assessment & Plan (1) CAD (coronary artery disease): Code(s): I25.10 - Atherosclerotic heart disease of yocha dehe coronary artery without angina pectoris Category: Medical Plan: Stable, no anginal chest pain. Continue following with Cardiology, most recent note reviewed. Continue aspirin and P atorvastatin (2) Hyperlipidemia: Code(s): E78.5 - Hyperlipidemia, unspecified Category: Medical Plan: Lipid panel ordered. Continue atorvastatin as above (3) Diabetes mellitus: Code(s): E11.9 - Type 2 diabetes mellitus without complications Category: Medical Plan: Hemoglobin A1c ordered. Continue monitoring glucose levels with fasting goal between 90-130. Continue with diabetic diet and continue with weight loss efforts, commended on weight loss thus far. Continue on metformin. Annual eye exams and foot Exams (4) Hypothyroidism: Code(s): E03.9 - Hypothyroidism, unspecified Category: Medical Plan: TSH with reflex free T4 ordered. Continue levothyroxine 50 mcg daily. (5) Constipation: Code(s): K59.00 - Constipation, unspecified Category: Medical Plan: Discussed the importance of bowel regimen while on chronic opiates. Recommend stool softener such as Colace as well as MiraLax. Add fiber supplement. Increase water intake to at least 64 oz daily. Check KUB Plan Follow-up in the office in 4 months. Referred to gastroenterology given chronic constipation. He is also referred to Orthopedics due to osteoarthritis of the hip. Labs as ordered Orders: Orders Hemoglobin A1c 07/09/25 MEET Lala E11.9 - Type 2 diabetes mellitus without complications, E78.5 - Hyperlipidemia, unspecified, I25.10 - Atherosclerotic heart disease of yocha dehe coronary artery without angina pectoris, K59.00 - Constipation, unspecified Liver Panel 07/09/25 MEET Lala E11.9 - Type 2 diabetes mellitus without complications, E78.5 - Hyperlipidemia, unspecified, I25.10 - Atherosclerotic heart disease of yocha dehe coronary artery without angina pectoris, K59.00 - Constipation, unspecified UA ClnCatch+Micro w/rflx Cult 07/09/25 MEET Lala K59.00 - Constipation, unspecified, R10.9 - Unspecified abdominal pain Basic Metabolic Panel 07/09/25 MEET Lala E11.9 - Type 2 diabetes mellitus without complications, E78.5 - Hyperlipidemia, unspecified, I25.10 - Atherosclerotic heart disease of yocha dehe coronary artery without angina pectoris, K59.00 - Constipation, unspecified Complete Blood Count Auto Diff 07/09/25 MEET Lala E11.9 - Type 2 diabetes mellitus without complications, E78.5 - Hyperlipidemia, unspecified, I25.10 - Atherosclerotic heart disease of yocha dehe coronary artery without angina pectoris, K59.00 - Constipation, unspecified Lipid Panel 07/09/25 MEET Lala E11.9 - Type 2 diabetes mellitus without complications, E78.5 - Hyperlipidemia, unspecified, I25.10 - Atherosclerotic heart disease of yocha dehe coronary artery without angina pectoris, K59.00 - Constipation, unspecified TSH reflex Free T4 07/09/25 MEET Lala E11.9 - Type 2 diabetes mellitus without complications, E78.5 - Hyperlipidemia, unspecified, I25.10 - Atherosclerotic heart disease of yocha dehe coronary artery without angina pectoris, K59.00 - Constipation, unspecified Testosterone, Total 07/09/25 MEET Lala E11.9 - Type 2 diabetes mellitus without complications, E78.5 - Hyperlipidemia, unspecified, I25.10 - Atherosclerotic heart disease of yocha dehe coronary artery without angina pectoris, K59.00 - Constipation, unspecified XR KUB 07/09/25 MEET Lala R10.9 - Unspecified abdominal pain Referrals Gastroenterology Referral MEET Lala G89.29 - Other chronic pain, K59.00 - Constipation, unspecified, R10.9 - Unspecified abdominal pain Orthopedics Referral MEET Lala M16.9 - Osteoarthritis of hip, unspecified Medications: Changed From metformin 1,000 mg PO BID 90 days 180 tabs 3RF To metformin 1,000 mg PO ONCE Sandra Luo PA-C Refilled [Dexcom G6 lancets] As directed 1 ea 3RF MEET Lala
[2025-07-09 13:19] VITALS: BP 110/74; PULSE 82; RESP 18; TEMP 36.6; O2SAT 98; BMI 30.2
--- OUTSIDE RECORDS SUMMARY | 2025-07-09 16:38 | XMS_ITS | Encounter Summary ---
Author Organization [facility] Address [address] [place] [phone] Phone Care Team Providers Care Conventions Assistant Name Role Phone Santino Marie MD Primary Care Provider Ghanshyam Rodriges MD Unavailable [phone] Luis Fernando Mejia MD Unavailable Encounter Details Date Type Department Care Team (Late st Contact Info) Description 11/23/2018 Procedure [facility] [address] [place] [address] Social History Tobacco Use Types Packs/Day Years [...] CoV-Risk 09/23/2023 09/23/2023 10/04/2023 1:22 AM EST documented as of this encounter Care Teams Conventions Assistant Relationship Specialty Start Date End Date Santino Marie MD [address] [place] [address] [place] [address] PCP - General Internal Medicine 11/19/18 Ghanshyam Rodriges MD [address] [facility] [place]ematology/[place] [address] [email or web address] 12/28/18 Luis Fernando Mejia MD [address] [place] [address] [email or web address] Medical Oncology 04/30/24 documented as of this encounter Additional Source Comments The information contained in this document represents components of the legal health record. It is not the complete legal health record.[facility]
--- OUTSIDE RECORDS SUMMARY | 2025-07-09 16:38 | XMS_ITS | Encounter Summary ---
Author Organization [facility] Address [address] [place] [address] Phone Care Team Providers Care Mobile Mechanic Name Role Phone Santino Marie MD Primary Care Provider Ghanshyam Rodriges MD Unavailable Luis Fernando Mejia MD Unavailable Encounter Details Date Type Department Care Team (Late st Contact Info) Description 07/21/2020 Procedure Pass [facility] Endoscopy Admitting Dept Virtual Department [address] [place] [address] Social History Tobacco Use Types Packs/Day Years [...] documented as of this encounter Care Teams Mobile Mechanic Relationship Specialty Start Date End Date Santino Marie MD [address] [place] [address] [place] [address] PCP - General Internal Medicine 11/19/18 Ghanshyam Rodriges MD [address] [facility] Hematology/[place] [address] [email or web address] 12/28/18 Luis Fernando Mejia MD [address] [place] [address] Omayra Baya [address] [place] [address] [email or web address] Medical Oncology 04/30/24 documented as of this encounter Additional Source Comments The information contained in this document represents components of the legal health record. It is not the complete legal health record.[facility]
--- OUTSIDE RECORDS SUMMARY | 2025-07-09 16:38 | XMS_ITS | Encounter Summary ---
Author Organization [facility] Address [address] [place] [address] Phone Care Team Providers Care Technical Systems Architect Name Role Phone Santino Marie MD Primary Care Provider Ghanshyam Rodriges MD Unavailable Luis Fernando Mejia MD Unavailable Encounter Details Date Type Department Care Team (Late st Contact Info) Description 07/21/2020 Procedure Pass [facility] Endoscopy Admitting Dept Virtual Department [address] [place] [address] Social History Tobacco Use Types Packs/Day Years [...] documented as of this encounter Care Teams Technical Systems Architect Relationship Specialty Start Date End Date Santino Marie MD [address] [place] [address] [place] [address] PCP - General Internal Medicine 11/19/18 Ghanshyam Rodriges MD [address] [facility] Hematology/[place] [address] [email or web address] 12/28/18 Luis Fernando Mejia MD [address] [place] [address] Omayra Baya [address] [place] [address] [email or web address] Medical Oncology 04/30/24 documented as of this encounter Additional Source Comments The information contained in this document represents components of the legal health record. It is not the complete legal health record.[facility]
--- OUTSIDE RECORDS SUMMARY | 2025-07-09 16:38 | XMS_ITS | Encounter Summary ---
Author Organization [facility] Address [address] [place] [address] Phone Care Team Providers Care Pediatric Dental Assistant Name Role Phone Santino Marie MD Primary Care Provider Ghanshyam Rodriges MD Unavailable [phone] Luis Fernando Mejia MD Unavailable Encounter Details Date Type Department Care Team (Late st Contact Info) Description 11/30/2018 Procedure Pass [facility] Periop [address] [place] [address] Social History Tobacco Use Types Packs/Day Years [...] documented as of this encounter Care Teams Pediatric Dental Assistant Relationship Specialty Start Date End Date Santino Marie MD [address] [place] [address] [place] [address] PCP - General Internal Medicine 11/19/18 Ghanshyam Rodriges MD 33[address] [facility] Hematology/[place] [address] [email or web address] Hematology 12/28/18 Luis Fernando Mejia MD [address] [facility] [address] [place] [address] [email or web address] Medical Oncology 04/30/24 documented as of this encounter Additional Source Comments The information contained in this document represents components of the legal health record. It is not the complete legal health record.[facility]
--- OUTSIDE RECORDS SUMMARY | 2025-07-09 16:38 | XMS_ITS | Encounter Summary ---
Author Organization [facility] Address [address] [place] [address] Phone Care Team Providers Care Juvenile Probation Officer Name Role Phone Santino Marie MD Primary Care Provider Ghanshyam Rodriges MD Unavailable [phone] Luis Fernando Mejia MD Unavailable Encounter Details Date Type Department Care Team (Late st Contact Info) Description 11/28/2018 Transcribe Orders [facility] Echocardiography [address] [place] [address] Santino Marie MD [address] [place] [address] [place] [address] Social History Tobacco Use Types Packs/Day Years [...] documented as of this encounter Care Teams Juvenile Probation Officer Relationship Specialty Start Date End Date Santino Marie MD [address] [place] [address] [place] [address] PCP - General Internal Medicine 11/19/18 Ghanshyam Rodriges MD [address] [facility] Hematology/[place] [address] [email or web address] 12/28/18 Luis Fernando Mejia MD [address]acon [address] [place] [address] [email or web address] Medical Oncology 04/30/24 documented as of this encounter Additional Source Comments The information contained in this document represents components of the legal health record. It is not the complete legal health record.[facility]
--- OUTSIDE RECORDS SUMMARY | 2025-07-09 16:38 | XMS_ITS | Clinical Summary ---
Author Organization [facility] Address [address] [place] [address] Phone Care Team Providers Care Headliner Installer Name Role Phone Santino Mariano MD Primary Care Provider Ghanshyam Rodriges MD Unavailable Luis Fernando Mejia MD Unavailable [phone] Allergies No known active allergies Medications multivitamin per tablet Take 1 tablet by mouth daily. Active MAGNESIUM ORAL Take by mouth daily. Active bacillus coagulans-inuli n 1 billion-250 cell-mg Cap Take 250 mg by mouth daily. Active cholecalciferol (VITAMIN D3) 1,000 unit tablet Take 1,000 Units by mouth daily. Active b complex vitamins capsule Take 1 capsule by mouth daily. Active omega-3 fatty acids/fish oil (OMEGA 3 FISH OIL ORAL) Take by mouth. Active sildenafiL (VIAGRA) 50 mg tablet TAKE 1 TABLET BY MOUTH EVERY 72 HOURS 08/29/2023 Active oxyCODONE 5 MG immediate release tablet Take 5 mg by mouth every 6 (six) hours as needed. 08/22/2024 Active predniSONE (DELTASONE) 20 MG tablet Take 1 tablet (20 mg total) by mouth daily with breakfast. 5 tablet 09/05/2024 Active Active Problems Problem Noted Date Diagnosed Date Severe obesity 09/05/2024 Malignant carcinoid tumor 09/05/2024 Coagulopathy 12/02/2018 Acute post-operative pain 11/30/2018 Acute postoperative respiratory insufficiency Chest tube in place 11/30/2018 Atrial fibrillation with RVR 11/30/2018 Neuroendocrine tumor 11/30/2018 Mediastinal mass 11/19/2018 Immunizations Immunization Administration Dates Next Due Influenza Quadrivalent Prese rvative Free IM 12/04/2018(Deferred: Patient Refused) Family History Medical History Relation Comments Breast cancer Mother Relation Status Comments Mother Social History Tobacco Use Types Packs/Day Years Used Date Smoking Tobacco: Never Smokeless Tobacco: Never Tobacco Cessation:Counseling Given: Not Answered Alcohol Use Standard Drinks/Week Comments No 0 (1 standard drink = 0.6 oz pur e alcohol) Child or Family Care Answer Date Record ed Do you have problems with on e of the following making it difficult for you to work, study, or receive health care? No 05/15/2024 Education Answer Date Recorded Are you interested in help w ith more adult education (for example, completing high school, GED, job training, learning the [place] language, technical skills, or developing parenting skills)? No 05/15/2024 Are you concerned about learning? Not on file 05/15/2024 No 05/15/2024 Yes 05/15/2024 Food Answer Date Recorded Within the past 6 months we worried whether our food would run out before we got money to buy more. Never True 05/15/2024 Within the past 6 months the food we bought just didn't last and we didn't have enough money to get more. Never True Residential Stability Answer Date Recor ded What is your housing situation today? I have boby sing 05/15/2024 How many times have you move d in the past 12 months? Zero (I did not move) 05/15/2024 Paying for Meds Answer Date Recorded Do you have trouble paying for medicines? No 05/15/2024 Paying Utility Bills Answer Date Record ed Do you have trouble paying your heating or elect ricity bill? No 05/15/2024 Transportation Answer Date Recorded Has the lack of transportati on kept you from medical appointments or from getting medications? No 05/15/2024 Digital Access Answer Date Recorded No 02/05/2023 No 02/05/2023 Reliable internet access at home? Not on file 02/05/2023 Device with a working camera? Not on file Sex and Gender Information Value Date Recorded Sex Assigned at Male 11/19/2018 12:13 AM EDT Legal Sex Male 6:44 PM EST Gender Identity Male 11/19/2018 12:13 AM EDT Sexual Orientation Straight 11/19/2018 12 :13 AM EDT Last Filed Vital Signs Vital Sign Reading Time Taken Comments Blood Pressure 126/76 09/05/2024 1:34 PM EST Pulse 90 09/05/2024 1:34 PM EST Temperature 36.5 C (97.7 F) 09/05/2024 1:34 PM EST Respiratory Rate 17 09/05/2024 1:34 PM EST Oxygen Saturation 98% 09/05/2024 1:34 PM EST Inhaled Oxygen Concentration 30% 11:21 PM EDT Weight 130.3 kg (287 lb 4.2 oz) 05/22/2024 2:27 PM EDT Height 185.4 cm (6' 0.99 ) 05/22/2024 2:27 PM ED T Body Mass Index 37.91 05/22/2024 2:27 PM EDT Plan of Treatment Health Maintenance Due Date Last Done Comments LIPID PANEL 1965 ZOSTER VACCINES (1 of 2) 1986 COLOGUARD 2012 FIT TEST 2012 FOBT 2012 SIGMOIDOSCOPY 2012 VIRTUAL COLONOSCOPY 2012 RSV VACCINE (1 - Risk 50-74 years 1-dose series) 2017 DEPRESSION SCREENING 12/13/2019 12/12/2018 SCREENING FOR DIABETES 12/04/2021 12/04/2018 PNEUMOCOCCAL VACCINES (50+ years) (3 of 3 - PPSV23, PCV20 or PCV21) 03/12/2024 03/12/2019, 01/14/2019 INFLUENZA VACCINE (#1) 2025 6, 06/29/2015 COVID-19 VACCINE (3 - 2024-2 6 season) 2025 04/22/2021, 03/31/2021 COLONOSCOPY 07/21/2030 07/21/2020 COLORECTAL CANCER SCREENING 07/21/2030 Adult Td,Tdap Booster 11/08/2032 11/08/2022 HEPATITIS C SCREENING Completed 11/24/2018 HIV ONE-TIME SCREENING (18-6 5 YEARS) Completed 11/24/2018 SMOKING STATUS SCREENING (On ce After 26 Yrs) Completed 09/05/2024 HEPATITIS A VACCINES Aged Out No long er eligible based on patient's age to complete this topic HIB VACCINES Aged Out No longer eligi ble based on patient's age to complete this topic MENINGOCOCCAL VACCINES (ACWY) Aged Out No longer eligible based on patient's age to complete this topic MENINGOCOCCAL VACCINES (B) Aged Out N o longer eligible based on patient's age to complete this topic Medical Devices Not on file Procedures Procedure Name Priority Date/Time Associated Diagnosis Comments ENDOSCOPY, COLON 07/21/2020 10:4 3 AM EST HEPATITIS C ANTIBODY, QUALITATIVE Routine 11/24/2018 6:21 AM EDT from Last 3 Months or Most Recently Relevant to Health Maintenance Results * ENDOSCOPY, COLON (07/21/2020 10:43 AM EST) Narrative Transcriptions Urmila Van MD - 07/21/2020 10:43 AM EST Patient Name: Shyam Espinosa Attending MD:: URMILA VAN MD Procedure Date: 07/21/2020 10:43AM Date of : 1965 Age: 54 Admit Type: Outpatient Gender: Male Room: [place] [address] Referring MD: TANMAY MARIANO Exam Type: Colonoscopy Indications: Screening for colorectal malignant neoplasm, This is the patient's first colonoscopy Medications: Monitored Anesthesia Care Procedure: Informed consent was obtained from the patient after discussion of the indications, limitations, alternatives, benefits, and risks of the procedure. Risks specifically discussed include but are not limited to medication reactions, missed lesions, bleeding, perforation, or the need for emergentsurgery. Throughout the procedure, the patient's bloodpressure, pulse, end-tidal CO2, and oxygen saturations were monitored continuously. The Olympus adult variable colonoscope CF-FX135V #2was introduced through the anus and advanced to the terminal ileum, with identification of theappendiceal orifice and IC valve. The colonoscopy was performed without difficulty. The patient tolerated theprocedure well. The quality of the bowel preparation was excellent. Complications: No immediate complications. Estimated blood loss:None. Findings: The terminal ileum appeared normal. Examination of the right colon was repeated in retroflexion and again in NBI. Retroflexion was also performed in the rectum. The entire examined colon appeared normal. Impression: - The examined portion of the ileum was normal. - The entire examined colon is normal. - No specimens collected. Recommendation: - Patient has a contact number available for emergencies. The signs and symptoms of potential delayed complications were discussed with thepatient. Return to normal activities tomorrow. Writtendischarge instructions were provided to the patient. - Repeat colonoscopy in 10 years for screeningpurposes. Urmila Van URMILA VAN MD 07/21/2020 11:17:20 AM This report has been signed electronically. Number of Addenda: 0 Note Initiated On: 07/21/2020 10:43 AM Procedure Code(s): --- Professional --- 92186, Colonoscopy, flexible; diagnostic, including collection of specimen(s) by brushing or washing, when performed (separateprocedure) --- Technical --- 04646, Colonoscopy, flexible; diagnostic, including collection of specimen(s) by brushing or washing, when performed (separateprocedure) CPT copyright 2018 [employer]. All rights reserved. The codes documented in this report are preliminary and upon gunstock spray unit adjuster reviewmay be revised to meet current compliance requirements. Procedure Date: 07/21/2020 10:43:43 AM 30 [place] [address] Santino Mariano MD GI PROCEDURE ORDERABLES Final Result * Hepatitis C antibody, qualitative (11/24/2018 6:21 AM EDT) HCV Nonreactive Nonreactive [facility] Blood 11/24/2018 6:21 AM EDT 11/24/2018 7:23 AM EDT us Latrice Hart MD LAB BLOOD ORDERABLES Final Res ult [facility] [address] [place] [address] from Last 3 Months or Most Recently Relevant to Health Maintenance Insurance [facility] Address: [address] [address] Advance Directives For more information, please contact: [phone] (9AM - 5PM [facility], Monday-Monday) Documents on File Type Date Recorded Patient Furniture Technician Expl anation Healthcare Proxy 11/23/2018 7:33 AM Signed on 11/22/2018 * Full Code (Presumed) (Latest Code Status on File) Date Activated Date Inactivated Comments 11/30/2018 7:35 PM 12/04/2018 8:27 PM * Full Code (Confirmed) Date Activated Date Inactivated Comments 11/19/2018 5:51 AM 11/30/2018 7:35 PM Question Answer Comments Code Status Confirmed With: Patient * Full Code (Presumed) Date Activated Date Inactivated Comments 11/19/2018 5:50 AM 11/19/2018 5:51 AM Care Teams Headliner Installer Relationship Specialty Start Date End Date Santino Mariano MD [address] [place] [address] [place] [address] PCP - General Internal Medicine 11/19/18 Ghanshyam Rodriges MD [address] [facility] Hematology/[place] [address] [email or web address] Hematology 12/28/18 Luis Fernando Mejia MD [address] [place] [address] [address] Ch[address] [place] [phone] [email or web address] Medical Oncology 04/30/24 Additional Source Comments The information contained in this document represents components of the legal health record. It is not the complete legal health record.[facility]
--- OUTSIDE RECORDS SUMMARY | 2025-07-09 16:38 | XMS_ITS | Encounter Summary ---
Author Organization [facility] Address [address] [place] [address] Phone Care Team Providers Care Work Adjustment Instructor Name Role Phone Santino Marie MD Primary Care Provider Ghanshyam Rodriges MD Unavailable [phone] Luis Fernando Mejia MD Unavailable Encounter Details Date Type Department Care Team (Late st Contact Info) Description 11/30/[address] [facility] Periop 75 [place] [address] Social History Tobacco Use Types Packs/Day Years [...] documented as of this encounter Care Teams Work Adjustment Instructor Relationship Specialty Start Date End Date Santino Marie MD [address] [place] [address] [place] [address] PCP - General Internal Medicine 11/19/18 Ghanshyam Rodriges MD 3350 [facility] Hematology/[place] [address] [email or web address] [email or web address] 12/28/18 Luis Fernando Mejia MD [address] [facility] [address] [place] [address] [email or web address] Medical Oncology 04/30/24 documented as of this encounter Additional Source Comments The information contained in this document represents components of the legal health record. It is not the complete legal health record.[facility]
== END 2025-07-09 13:41 | disposition home or self-care (01) ==
LOC: HO.HMCHD 13:05
PROVIDERS: PCP Internal Medicine; Visit Provider Physician Assistant
DX: I25.10 Atherosclerotic heart disease of native coronary artery without angina pectoris (principal); E78.5 Hyperlipidemia, unspecified; E11.9 Type 2 diabetes mellitus without complications; E03.9 Hypothyroidism, unspecified; K59.00 Constipation, unspecified

== ENCOUNTER 2025-07-24 09:08 | Outpatient (REF) | payer OTHER, SELFPAY ==
[2025-07-24 09:26] LABS: MANUAL DIFF FLAG NO
[2025-07-24 10:05] LABS: Hematocrit 40.9 % (42.0-52.0); Hemoglobin 13.5 g/dl (14.0-18.0); Imm Gran Abs Auto 0.01 X10*3/uL (0.00-0.03); Imm Gran Pct Auto 0.3 % (0.0-0.4); Lymphocytes Absolute Auto 0.7 X10*3/uL (1.2-4.9); Mean Corpuscular HGB Conc 33.0 g/dl (31.0-36.0); Mean Corpuscular Hemoglobin 31.3 pg (27.0-33.0); Mean Corpuscular Volume 94.9 fL (80.0-98.0); NRBC Abs Auto 0.000 X10*3/uL (0.0-0.012); NRBC Pct Auto 0.0 /100WBC (0.0-0.2); Platelet Count 291 X10*3/uL (160-400); Red Blood Count 4.31 X10*6/uL (4.60-5.80); White Blood Count 3.7 X10*3/uL (4.8-10.8)
--- OUTSIDE RECORDS SUMMARY | 2025-07-24 10:06 | XMS_ITS | Encounter Summary ---
Author Organization [facility] Address [address] [place] [address] Phone Care Team Providers Care Agricultural Purchasing Agent Name Role Phone Santino Marie MD Primary Care Provider Ghanshyam Rodriges MD Unavailable [phone] Luis Fernando Mejia MD Unavailable Encounter Details Date Type Department Care Team (Late st Contact Info) Description 07/21/2020 Procedure Pass [facility] Endoscopy Admitting Dept Virtual Department 30 [place] [address] Social History Tobacco Use Types Packs/Day Years [...] documented as of this encounter Care Teams Agricultural Purchasing Agent Relationship Specialty Start Date End Date Santino Marie MD [address] [place] [address] [place] [address] PCP - General Internal Medicine 11/19/18 Ghanshyam Rodriges MD 3350 [facility] Hematology/[place] [address] [email or web address] 12/28/18 Luis Fernando Mejia MD [address] [place] [address] Omayra [address]a [address] [place] [address] [email or web address] Medical Oncology 04/30/24 documented as of this encounter Additional Source Comments The information contained in this document represents components of the legal health record. It is not the complete legal health record.[facility]
--- OUTSIDE RECORDS SUMMARY | 2025-07-24 10:06 | XMS_ITS | Encounter Summary ---
Author Organization [facility] Address [address] [employer] [address] [place] [address] Phone Care Team Providers Care Education Managers Name Role Phone Santino aMrie MD Primary Care Provider Ghanshyam Rodriges MD Unavailable Luis Fernando Mejia MD Unavailable Encounter Details Date Type Department Care Team (Late st Contact Info) Description 07/21/2020 Procedure Pass [facility] Endoscopy Admitting Dept Virtual Department [address] [place] [address] Social History Tobacco Use Types Packs/Day Years [...] documented as of this encounter Care Teams Education Managers Relationship Specialty Start Date End Date Santino Marie MD [address] [place] [address] [place] [address] PCP - General Internal Medicine 11/19/18 Ghanshyam Rodriges MD 3350 [facility] Hematology/[place] [address] [email or web address] Hematology 12/28/18 Luis Fernando Mejia MD [address] [place] [address] Omayra Baya [address] [place] [address] [email or web address] Medical Oncology 04/30/24 documented as of this encounter Additional Source Comments The information contained in this document represents components of the legal health record. It is not the complete legal health record.[facility]
--- OUTSIDE RECORDS SUMMARY | 2025-07-24 10:07 | XMS_ITS | Encounter Summary ---
Author Organization [facility] Address [address] [place] [address] Phone Care Team Providers Care Industrial Sweeper Cleaner Name Role Phone Santino Marie MD Primary Care Provider Ghanshyam Rodriges MD Unavailable [phone] Luis Fernando Mejia MD Unavailable Encounter Details Date Type Department Care Team (Late st Contact Info) Description 11/30/2018 Procedure Pass [facility] Periop [address] [place] [address] Social History Tobacco Use Types Packs/Day Years [...] documented as of this encounter Care Teams Industrial Sweeper Cleaner Relationship Specialty Start Date End Date Santino Marie MD [address] [place] [address] [place] [address] PCP - General Internal Medicine 11/19/18 Ghanshyam Rodriges MD 3350 [facility] Hematology/[place] [address] [email or web address] [email or web address] 12/28/18 Luis Fernando Mejia MD [address] [facility] [address] [place] [address] [email or web address] Medical Oncology 04/30/24 documented as of this encounter Additional Source Comments The information contained in this document represents components of the legal health record. It is not the complete legal health record.[facility]
--- OUTSIDE RECORDS SUMMARY | 2025-07-24 10:07 | XMS_ITS | Encounter Summary ---
Author Organization [facility] Address [address] [place] [address] Phone Care Team Providers Care Clothes Wringer Name Role Phone Santino Marie MD Primary Care Provider Ghanshyam Rodriges MD Unavailable [phone] Luis Fernando Mejia MD Unavailable Encounter Details Date Type Department Care Team (Late st Contact Info) Description 11/30/2018 Procedure Pass [facility] Periop 75 [place] [address] Social History Tobacco Use Types Packs/Day Years [...] documented as of this encounter Care Teams Clothes Wringer Relationship Specialty Start Date End Date Santino Marie MD [address] [place] [address] [place] [address] PCP - General Internal Medicine 11/19/18 Ghanshyam Rodriges MD 3350 [facility] Hematology/[place] [address] [email or web address] Hematology 12/28/18 Luis Fernando Mejia MD [address] [facility] [address] [place] [address] [email or web address] Medical Oncology 04/30/24 documented as of this encounter Additional Source Comments The information contained in this document represents components of the legal health record. It is not the complete legal health record.[facility]
--- OUTSIDE RECORDS SUMMARY | 2025-07-24 10:07 | XMS_ITS | Encounter Summary ---
Author Organization [facility] Address [address] [place] [address] Phone Care Team Providers Care Program Specialist Name Role Phone Santino Marie MD Primary Care Provider Ghanshyam Rodriges MD Unavailable [phone] Luis Fernando Mejia MD Unavailable Encounter Details Date Type Department Care Team (Late st Contact Info) Description 11/23/2018 Procedure Pass [facility] [address] [place] [address] Social History Tobacco Use Types Packs/Day Years [...] documented as of this encounter Care Teams Program Specialist Relationship Specialty Start Date End Date Santino Marie MD [address] [place] [address] [place] [address] PCP - General Internal Medicine 11/19/18 Ghanshyam Rodriges MD 3350 [facility] Hematology/[place] [address] [email or web address] Hematology 12/28/18 Luis Fernando Mejia MD [address] [facility] [address] [place] [address] [email or web address] Medical Oncology 04/30/24 documented as of this encounter Additional Source Comments The information contained in this document represents components of the legal health record. It is not the complete legal health record.[facility]
--- OUTSIDE RECORDS SUMMARY | 2025-07-24 10:07 | XMS_ITS | Encounter Summary ---
Author Organization [facility] Address [address] [place] [address] Phone Care Team Providers Care Manager Rental Name Role Phone Santino Marie MD Primary Care Provider Ghanshyam Rodriges MD Unavailable Luis Fernando Mejia MD Unavailable [phone] Encounter Details Date Type Department Care Team (Late st Contact Info) Description 11/28/[address] [facility] Echocardiography 70 [place] [address] Santino Marie MD [address] [place] [address] [place] [address] Social History Tobacco Use Types Packs/Day Years [...] documented as of this encounter Care Teams Manager Rental Relationship Specialty Start Date End Date Santino Marie MD [address] [place] [address] [place] [address] PCP - General Internal Medicine 11/19/18 Ghanshyam Rodriges MD [address] [facility] Hematology/[place] [address] [email or web address] Hematology 12/28/18 Luis Fernando Mejia MD [address] [place] Omayra Chacon [address] [place] [address] [email or web address] Medical Oncology 04/30/24 documented as of this encounter Additional Source Comments The information contained in this document represents components of the legal health record. It is not the complete legal health record.[facility]
--- OUTSIDE RECORDS SUMMARY | 2025-07-24 10:08 | XMS_ITS | Clinical Summary ---
Author Organization [facility] Address [address] [place] [address] Phone Care Team Providers Care Senior Customer Service Representative Name Role Phone Santino Mariano MD Primary Care Provider Erick Rodriges MD Unavailable Luis Fernando Mejia MD Unavailable Allergies No known active allergies Medications multivitamin [...] high school, GED, job training, learning the Japanese language, technical skills, or developing parenting skills)? [...] VACCINES (50+ years) (3 of 3 - PCV20 or PCV21) 03/12/2024 03/12/2019, 01/14/2019 INFLUENZA VACCINE (#1) 2025 6, 06/29/2015 COVID-19 VACCINE (3 - 2024-2 6 season) 2025 04/22/2021, 03/31/2021 COLONOSCOPY 07/21/2030 07/21/2020 COLORECTAL CANCER SCREENING 07/21/2030 Adult Td,Tdap Booster 11/08/2032 11/08/2022 HEPATITIS C SCREENING Completed 11/24/2018 , 11/24/2018, 11/24/2018 HIV ONE-TIME SCREENING (18-6 5 YEARS) Completed 11/24/2018 SMOKING STATUS SCREENING (On ce After 26 Yrs) Completed 09/05/2024 HEPATITIS A VACCINES Aged Out No long er eligible based on patient's age to complete this topic HIB VACCINES Aged Out No longer eligi ble based on patient's age to complete this topic IPV VACCINES Aged Out No longer eligi ble [...] 54 Admit Type: Outpatient Gender: Male Room: [place] [address] Referring MD: TANMAY MARIANO Exam Type: Colonoscopy [...] monitored continuously. The Olympus adult variable colonoscope [id number] #2was introduced through the anus and advanced [...] 10:43 AM Procedure Code(s): --- Professional --- 72424, Colonoscopy, flexible; diagnostic, including collection of specimen(s) by brushing or washing, when performed (separateprocedure) --- Technical --- 49590, Colonoscopy, flexible; diagnostic, including collection of specimen(s) by brushing or washing, when performed (separateprocedure) CPT copyright 2018 [employer]. All rights reserved. The codes documented in this report are preliminary and upon electronic prepress system operator reviewmay be revised to meet current compliance requirements. Procedure Date: 07/21/2020 10:43:[address] [place] [address] Santino Mariano MD GI PROCEDURE ORDERABLES Final Result * Hepatitis C antibody, qualitative (11/24/2018 6:21 AM EDT) HCV Nonreactive Nonreactive [facility] Blood 11/24/2018 6:21 AM EDT 11/24/2018 7:23 AM EDT us Latrice Hart MD LAB BLOOD BKR ORDERABLES Final Result Performing Organization Address City/State/[facility] Co de Phone Number [facility] [address] [place] [phone] from Last 3 Months or Most Recently Relevant to Health Maintenance Insurance [facility] HMO Advance Directives For more information, please contact: [phone] (9AM - 5PM Joann/[facility], Monday-Monday) Documents on File Type Date Recorded Patient Sales And Marketing Specialist Expl anation Healthcare Proxy 11/23/2018 7:33 AM [...] 5:50 AM 11/19/2018 5:51 AM Care Teams Senior Customer Service Representative Relationship Specialty Start Date End Date Santino Mariano MD [address] [place] [address] [place] [address] PCP - General Internal Medicine 11/19/18 Erick Rodriges MD [address] [facility] Hematology/[place] [address] [email or web address] 12/28/18 Luis Fernando Mejia MD [address] [place] [address] [email or web address] Medical Oncology 04/30/24 Additional Source Comments The information contained in this document represents components of the legal health record. It is not the complete legal health record.[facility]
[2025-07-24 10:58] LABS: Alanine Aminotransferase 79 U/L (0-40); Albumin Level 4.1 g/dL (3.5-5.0); Alkaline Phosphatase 144 U/L (39-117); Anion Gap 13 (12-20); Aspartate Amino Transferase 91 U/L (5-37); Blood Urea Nitrogen 13 mg/dL (9-16); Calcium 9.5 mg/dL (8.4-10.2); Carbon Dioxide 26 mmol/L (22-29); Chloride 104 mmol/L (96-108); Cholesterol 170 mg/dL (<200); Estimated Glomerular Filt Rate > 60; HDL Cholesterol 42 mg/dL (>40); Iron 101 mcg/dL (45-160); Percent Iron Saturation 39 % (15-50); Potassium 4.6 mmol/L (3.3-5.1); Sodium 138 mmol/L (135-145); Total Iron Binding Capacity 257 mcg/dL (228-428); Total Protein 7.9 g/dL (6.5-8.0); Triglycerides 84 mg/dL (<150); Unsaturated Iron Binding 156 ug/dL
[2025-07-24 11:08] LABS: Appearance Urine Clear; Glucose Urine UA Negative (Negative); PH 6.5 (5.0-9.0); Specific Gravity - Urine 1.010 (1.005-1.025)
[2025-07-24 11:51] LABS: Ferritin 1459 ng/mL (20-250)
[2025-07-24 13:04] LABS: Free T4 (Free Thyroxine) 0.86 ng/dL (0.71-1.85)
== END 2025-07-24 09:09 | disposition home or self-care (01) ==
LOC: HO.LAB 09:08
PROVIDERS: Physician Assistant Medical; PCP Physician Assistant; Visit Provider Physician Assistant
DX: Z00.00 Encounter for general adult medical examination without abnormal findings (principal); I25.10 Atherosclerotic heart disease of native coronary artery without angina pectoris; E11.9 Type 2 diabetes mellitus without complications; D64.9 Anemia, unspecified; E78.5 Hyperlipidemia, unspecified; K59.00 Constipation, unspecified; R10.9 Unspecified abdominal pain; R30.0 Dysuria
CPT/HCPCS: 36415; 80048; 80061; 80076; 81001; 82728; 83036; 83540; 84403; 84439; 84443; 85025

== ENCOUNTER 2025-08-29 06:33 | Outpatient (REF) | payer OTHER, SELFPAY ==
--- NOTE | ~2025-08-29 | XR_ITS ---
EXAMINATION: XR HIP 2 OR MORE VIEWS RIGHT HISTORY: M25.551 - Pain in right hip COMPARISON: Comparison is made with the prior examination dated 08/22/2024. FINDINGS: A single AP view of the pelvis and two views of the right hip are submitted. Multiple sclerotic foci are identified throughout the visualized bones, consistent with metastatic disease. There is no fracture or dislocation. There is mild to moderate joint space narrowing. The soft tissues are unremarkable. XR/XR hip RT min 2V IMPRESSION: 1. Sclerotic osseous metastatic disease. 2. Mild to moderate joint space narrowing of the right hip. Electronically signed by: Otoniel Kent MD 08/29/2025 12:51 PM EST
--- OUTSIDE RECORDS SUMMARY | 2025-08-29 06:37 | XMS_ITS | Encounter Summary ---
Author Organization [facility] Address [address] [place] [address] Phone Care Team Providers Care Electrical Inspector Name Role Phone Santino Marie MD Primary Care Provider Ghanshyam Rodriges MD Unavailable [phone] Luis Fernando Mejia MD Unavailable Encounter Details Date Type Department Care Team (Late st Contact Info) Description 11/30/2018 Procedure Pass [facility] Periop [address] [place] [address] Social History Tobacco Use Types Packs/Day Years [...] documented as of this encounter Care Teams Electrical Inspector Relationship Specialty Start Date End Date Santino Marie MD [address] [place] [address] [place] [address] PCP - General Internal Medicine 11/19/18 Ghanshyam Rodriges MD [address] [facility] Hematology/[place] [address] [email or web address] 12/28/18 Luis Fernando Mejia MD [address] [place] [address] [email or web address] Medical Oncology 04/30/24 documented as of this encounter Additional Source Comments The information contained in this document represents components of the legal health record. It is not the complete legal health record.[facility]
--- OUTSIDE RECORDS SUMMARY | 2025-08-29 06:37 | XMS_ITS | Encounter Summary ---
Author Organization [facility] Address [address] [place] [address] Phone Care Team Providers Care Filler Leaf Cutter Long Name Role Phone Santino Marie MD Primary Care Provider Ghanshyam Rodriges MD Unavailable [phone] Luis Fernando Mejia MD Unavailable [phone] Encounter Details Date Type Department Care Team (Late st Contact Info) Description 07/21/2020 Procedure Pass [facility] Endoscopy Admitting Dept Virtual Department [address] [place] [address] Social History Tobacco Use Types Packs/Day Years [...] documented as of this encounter Care Teams Filler Leaf Cutter Long Relationship Specialty Start Date End Date Santino Marie MD [address] [place] [address] [place] [address] PCP - General Internal Medicine 11/19/18 Ghanshyam Rodriges MD [address] [facility] Hematology/[place] [address] [email or web address] Hematology 12/28/18 Luis Fernando Mejia MD [address] [place] [address] [address] [place] [address] [email or web address] Medical Oncology 04/30/24 documented as of this encounter Additional Source Comments The information contained in this document represents components of the legal health record. It is not the complete legal health record.[facility]
--- OUTSIDE RECORDS SUMMARY | 2025-08-29 06:37 | XMS_ITS | Encounter Summary ---
Author Organization [facility] Address [address] [place] [address] Phone Care Team Providers Care Reworker Name Role Phone Santino Marie MD Primary Care Provider Ghanshyam Rodriges MD Unavailable [phone] Luis Fernando Mejia MD Unavailable Encounter Details Date Type Department Care Team (Late st Contact Info) Description 07/21/2020 Procedure Pass [facility] Endoscopy Admitting Dept Virtual Department [address] [place] [address] Social History Tobacco Use Types Packs/Day Years [...] documented as of this encounter Care Teams Reworker Relationship Specialty Start Date End Date Santino Marie MD [address] [place] [address] [place] [address] PCP - General Internal Medicine 11/19/18 Ghanshyam Rodriges MD [address] [facility] Hematology/[place] [address] [email or web address] 12/28/18 Luis Fernando Mejia MD [address] [place] [address] [address]mayra [address] [place] [address] [email or web address] Medical Oncology 04/30/24 documented as of this encounter Additional Source Comments The information contained in this document represents components of the legal health record. It is not the complete legal health record.[facility]
--- OUTSIDE RECORDS SUMMARY | 2025-08-29 06:37 | XMS_ITS | Encounter Summary ---
Author Organization [facility] Address [address] [place] [address] Phone Care Team Providers Care Low Altitude Air Defense Officer Name Role Phone Santino Marie MD Primary Care Provider Ghanshyam Rodriges MD Unavailable [phone] Luis Fernando Mejia MD Unavailable [phone] Encounter Details Date Type Department Care Team (Late st Contact Info) Description 11/30/2018 Procedure Pass [facility] Periop [address] [place] [address] Social History Tobacco Use Types Packs/Day Years [...] documented as of this encounter Care Teams Low Altitude Air Defense Officer Relationship Specialty Start Date End Date Santino Marie MD [address] [place] [address] [place] [address] PCP - General Internal Medicine 11/19/18 Ghanshyam Rodriges MD [address] [facility] Hematology/[place] [address] [email or web address] 12/28/18 Luis Fernando Mejia MD [address] [place] [address] [email or web address] Medical Oncology 04/30/24 documented as of this encounter Additional Source Comments The information contained in this document represents components of the legal health record. It is not the complete legal health record.[facility]
--- OUTSIDE RECORDS SUMMARY | 2025-08-29 06:38 | XMS_ITS | Encounter Summary ---
Author Organization [facility] Address [address] [place] [address] Phone Care Team Providers Care Motor Expert Name Role Phone Santino Marie MD Primary Care Provider Ghanshyam Rodriges MD Unavailable Luis Fernando Mejia MD Unavailable Encounter Details Date Type Department Care Team (Late st Contact Info) Description 11/28/[address] [facility] [address] [place] [address] Santino Marie MD [address] [place] [address] [place] [address] Social History Tobacco Use Types Packs/Day Years [...] documented as of this encounter Care Teams Motor Expert Relationship Specialty Start Date End Date Santino Marie MD [address] [place] [address] [place] [address] PCP - General Internal Medicine 11/19/18 Ghanshyam Rodriges MD [address] [facility] Hematology/[place] [address] [email or web address] [email or web address] 12/28/18 Luis Fernando Mejia MD [address] [place] [address] [email or web address] Medical Oncology 04/30/24 documented as of this encounter Additional Source Comments The information contained in this document represents components of the legal health record. It is not the complete legal health record.[facility]
--- OUTSIDE RECORDS SUMMARY | 2025-08-29 06:38 | XMS_ITS | Clinical Summary ---
Author Organization [facility] Address [address] [place] [address] Phone Care Team Providers Care Senior Production Supervisor Name Role Phone Santino Mariano MD Primary Care Provider Ghanshyam Rodriges MD Unavailable Luis Fernando Mejia MD Unavailable [phone] Allergies No known active allergies Medications multivitamin [...] high school, GED, job training, learning the [place] language, technical skills, or developing parenting skills)? [...] 54 Admit Type: Outpatient Gender: Male Room: [facility] 05 Referring MD: TANMAY MARIANO Exam Type: Colonoscopy [...] monitored continuously. The Olympus adult variable colonoscope [id number] #2was introduced through the anus and advanced [...] 10:43 AM Procedure Code(s): --- Professional --- 10709, Colonoscopy, flexible; diagnostic, including collection of specimen(s) by brushing or washing, when performed (separateprocedure) --- Technical --- 01054, Colonoscopy, flexible; diagnostic, including collection of specimen(s) by brushing or washing, when performed (separateprocedure) CPT copyright 2018 [employer]. All rights reserved. The codes documented in this report are preliminary and upon quality assurance engineer reviewmay be revised to meet current compliance requirements. Procedure Date: 07/21/2020 10:43:43 AM [address] [place] [address] Santino Mariano MD GI PROCEDURE ORDERABLES Final Result * Hepatitis C antibody, qualitative (11/24/2018 6:21 AM EDT) HCV Nonreactive Nonreactive [facility] Blood 11/24/2018 6:21 AM EDT 11/24/2018 7:23 AM EDT us Latrice Hart MD LAB BLOOD BKR ORDERABLES Final Result Performing Organization Address City/State/[facility] Co de Phone Number [facility] [address] [place] [phone] from Last 3 Months or Most Recently Relevant to Health Maintenance [facility] HMO Advance Directives For more information, please contact: [phone] (9AM - 5PM [facility], Monday-Monday) Documents on File Type Date Recorded Patient Fur Comber Expl anation Healthcare Proxy 11/23/2018 7:33 AM [...] AM 11/19/2018 5:51 AM Care Teams Senior Production Supervisor Relationship Specialty Start Date End Date Santino Mariano MD [address] [place] [address] [place] [address] PCP - General Internal Medicine 11/19/18 Ghanshyam Rodriges MD [facility] Hematology/[place] [address] [email or web address] 12/28/18 Luis Fernando Mejia MD [address] [place] [address] [address] [place] [address] [email or web address] Medical Oncology 04/30/24 Additional Source Comments The information contained in this document represents components of the legal health record. It is not the complete legal health record.[facility]
--- OUTSIDE RECORDS SUMMARY | 2025-08-29 06:38 | XMS_ITS | Encounter Summary ---
Author Organization [facility] Address [address] [place] [address] Phone Care Team Providers Care Controlled Area Checker Name Role Phone Santino Marie MD Primary Care Provider Ghanshyam Rodriges MD Unavailable [phone] Luis Fernando Mejia MD Unavailable Encounter Details Date Type Department Care Team (Late st Contact Info) Description 11/23/2018 Procedure Pass [facility] [address] [place] [address] Social History Tobacco Use Types Packs/Day Years [...] documented as of this encounter Care Teams Controlled Area Checker Relationship Specialty Start Date End Date Santino Marie MD [address] [place] [address] [place] [address] PCP - General Internal Medicine 11/19/18 Ghanshyam Rodriges MD [address] [facility] Hematology/[place] [address] [email or web address] [email or web address] 12/28/18 Luis Fernando Mejia MD [address] [facility] [address] [place] [address] [email or web address] Medical Oncology 04/30/24 documented as of this encounter Additional Source Comments The information contained in this document represents components of the legal health record. It is not the complete legal health record.[facility]
== END 2025-08-29 06:34 | disposition home or self-care (01) ==
LOC: HO.HOSX 06:33
PROVIDERS: Visit Provider Physician Assistant
DX: M16.11 Unilateral primary osteoarthritis, right hip (principal)
CPT/HCPCS: 73502

== ENCOUNTER 2025-08-29 12:26 | Outpatient (AMB) | payer OTHER, SELFPAY ==
--- OUTSIDE RECORDS SUMMARY | 2025-08-28 23:59 | XMS_ITS | Continuity of Care Document ---
Author Organization [facility] Address [address] [place] [address]- Care Team Providers Care Sizing Sponger Name Role Phone Marycruz BOWMAN, Brendon Dalton Primary Care Physician [id number] Date(s): 07/29/25 - 08/28/25 [facility] [address] [place] [address] Encounter Type: Triage Allergies, Adverse Reactions, Alerts No Known Allergies Immunizations Given and Recorded Vaccine Date Status Refusal Reason pneumococcal 23-valent vaccine 03/12/19 Given pneumococcal 13-valent vaccine 01/14/19 Given Medications ascorbic acid-ferrous fumarate (as elemental iron) 25 mg-65 mg oral tablet, extended release 1 tablet, By Mouth, Daily, # 100 tablet, 0 Refills, Maintenance, 01/17/19 3:59:33 PM EDT, ER Tablet Start Date: 01/17/19 Status: Ordered Medication Dispense Status: Completed Quantity: 100.0 Unit: tablet Total Allowed Fills: 1 Fills Dispensed: 0 B-Complex 50 1 tablet, By Mouth, Daily, 0 Refills, Maintenance, 01/17/19 4:00:02 PM EDT Start Date: 01/17/19 Status: Ordered Medication Dispense Status: Completed Total Allowed Fills: 1 Fills Dispensed: 0 baclofen 5 mg oral tablet 1 tablet = 5 mg, By Mouth, 3 times a day, # 90 tablet, 0 Refills, Maintenance, 02/04/25 3:44:00 PM EDT, Tablet, [facility]/pharmacy #2025, Partial fill upon patient request if the prescription is for a schedule II opioid drug., 184.7, cm, 01/23/25 14:59:00 EDT, Height, 111.3, kg, 01/21/25 13:52:00 EDT, DryWeight Start Date: 02/04/25 Status: Ordered Medication Dispense Status: Completed Quantity: 90.0 Unit: tablet Total Allowed Fills: 1 Fills Dispensed: 0 barium sulfate 2% oral suspension See Instructions, 2 premix 450ml bottles, take as directed for CT scan., # 900 mL, 0 Refills, Maintenance, 12/04/24 2:41:00 PM EDT, [facility]/pharmacy #2025, Partial fill upon patient request if the prescription is for a schedule II opioid drug., 2 premix 450ml bottles, take as directed for CT scan., 184.7, cm, 12/04/24 13:02:00 EDT, Height, 115.1, kg, 12/04/24 13:02:00 EDT, Dry Weight Start Date: 12/04/24 Status: Ordered Medication Dispense Status: Completed Quantity: 900.0 Unit: mL Total Allowed Fills: 1 Fills Dispensed: 0 cabozantinib 20 mg oral tablet 1 tablet = 20 mg, By Mouth, Daily, # 30 tablet, 1 Refills, Maintenance, 03/18/25 8:38:00 AM EDT, Tablet, [id number], Partial fill upon patient request if the prescription is for a schedule II opioid drug., 184.7, cm, 03/17/25 14:19:00 EDT, Height, 106, kg, 03/17/25 14:19:00 EDT, Dry Weight Start Date: 03/18/25 Status: Ordered Medication Dispense Status: Completed Quantity: 30.0 Unit: tablet Total Allowed Fills: 2 Fills Dispensed: 0 cabozantinib 40 mg oral tablet 1 tablet = 40 mg, By Mouth, Daily, # 30 tablet, 5 Refills, Maintenance, 04/22/25 9:43:00 AM EDT, Tablet, [id number], Partial fill upon patient request if the prescription is for a schedule II opioid drug., 184.7, cm, 04/22/25 9:15:00 EDT, Height, 104.7, kg, 04/22/25 9:15:00 EDT, Dry Weight Start Date: 04/22/25 Status: Ordered Medication Dispense Status: Completed Quantity: 30.0 Unit: tablet Total Allowed Fills: 6 Fills Dispensed: 0 cabozantinib 60 mg daily-dose oral capsule 1 capsule, By Mouth, Daily, # 30 capsule, 5 Refills, Maintenance, 12/10/24 4:15:00 PM EDT, Capsule, [facility] ([facility]) #[id number], Partial fill upon patient request if the prescription is for a schedule II opioid drug., 184.7, cm, 12/04/24 13:02:00 EDT, Height, 115.1, kg, 12/04/24 13:02:00 EDT, Dry Weight Start Date: 12/10/24 Status: Ordered Medication Dispense Status: Completed Quantity: 30.0 Unit: capsule Total Allowed Fills: 6 Fills Dispensed: 0 Cialis By Mouth, Daily, 0 Refills, Maintenance, 10/05/20 11:44:00 AM EST, Partial fill upon patient requestif the prescription is for a schedule II opioid drug. Start Date: 10/05/20 Status: Ordered Medication Dispense Status: Completed Total Allowed Fills: 1 Fills Dispensed: 0 GaviLAX oral powder for reconstitution See Instructions, DISSOLVE 17 GM IN WATER OR JUICE THEN TAKE DAILY, # 510 Gm, 4 Refills, Maintenance, 07/28/25 3:51:00 PM EST, [facility]/pharmacy #5, 30, DISSOLVE 17 GM IN WATER OR JUICE THEN TAKE DAILY, 184.7, cm, 07/28/25 15:13:00 EST, Height, 102, kg, 07/28/25 15:13:00 EST, Dry Weight Start Date: 07/28/25 Status: Ordered Medication Dispense Status: Completed Quantity: 510.0 Unit: g Total Allowed Fills: 5 Fills Dispensed: 0 iron gluconate By Mouth, 0 Refills, Maintenance, 01/26/21 1:52:00 PM EDT, Partial fill upon patient request if the prescription is for a schedule II opioid drug. Start Date: 01/26/21 Status: Ordered Medication Dispense Status: Completed Total Allowed Fills: 1 Fills Dispensed: 0 Lipitor 10 mg oral tablet 1 tablet = 10 mg, By Mouth, Daily, 0 Refills, Maintenance, 01/26/21 1:52:00 PM EDT, Partial fill upon patient request if the prescription is for a schedule II opioid drug. Start Date: 01/26/21 Status: Ordered Medication Dispense Status: Completed Total Allowed Fills: 1 Fills Dispensed: 0 LORazepam 1 mg oral tablet 1 tablet = 1 mg, By Mouth, Daily at bedtime, PRN as needed for anxiety, # 30 tablet, 0 Refills, Maintenance, 05/10/21 3:46:00 PM EDT, Tablet, [facility]/pharmacy #2025, Partial fill upon patient request if the prescription is for a schedule II opioid drug., 185.9, cm, 05/10/21 14:47:00 EDT, Height, 139.5, kg, 05/10/21 14:47:00 EDT, Dry Weight Start Date: 05/10/21 Status: Ordered Medication Dispense Status: Completed Quantity: 30.0 Unit: tablet Total Allowed Fills: 1 Fills Dispensed: 0 LORazepam 1 mg oral tablet 1 tablet = 1 mg, By Mouth, Every 12 hours, # 30 tablet, 1 Refills, Maintenance, 01/07/25 12:36:00 PMEDT, Tablet, [facility]/pharmacy #202, Partial fill upon patient request if the prescription is for a schedule II opioid drug., 184.7, cm, 01/07/25 11:01:00 EDT, Height, 109.8, kg, 01/07/25 11:01:00 EDT, Dry Weight Start Date: 01/07/25 Status: Ordered Medication Dispense Status: Completed Quantity: 30.0 Unit: tablet Total Allowed Fills: 2 Fills Dispensed: 0 M.V.I. Adult Daily, 0 Refills, Maintenance, 01/11/19 8:25:27 AM EDT Start Date: 01/11/19 Status: Ordered Medication Dispense Status: Completed Total Allowed Fills: 1 Fills Dispensed: 0 magnesium gluconate 500 mg oral tablet 1 tablet = 500 mg, By Mouth, Daily, 0 Refills, Maintenance, 01/17/19 3:50:46 PM EDT Start Date: 01/17/19 Status: Ordered Medication Dispense Status: Completed Total Allowed Fills: 1 Fills Dispensed: 0 Melatonin = 2 mg, Daily at bedtime, 0 Refills, Maintenance, 01/17/19 3:51:57 PM EDT Start Date: 01/17/19 Status: Ordered Medication Dispense Status: Completed Total Allowed Fills: 1 Fills Dispensed: 0 Metformin By Mouth, 0 Refills, Maintenance, 12/04/24 1:29:00 PM EDT, Partial fill upon patient request if the prescription is for a schedule II opioid drug. Start Date: 12/04/24 Status: Ordered Medication Dispense Status: Completed Total Allowed Fills: 1 Fills Dispensed: 0 Miracle Mouthwash Miracle Mouthwash, See Instructions, # 1 each, Refills 5, Tot. Refills 5, Maintenance, Take 1-2 tspevery 2-4 hours as needed. Swish and swallow. Shake well before use., 05/17/23 11:43:00 AM EDT, Miracle Mouthwash: Combine the following - benadryl elixir 4 oz; nystatin suspension 4 oz; lidocaine viscous 2% 100 ml; mylanta or maalox 8 oz., Compound, 184.7, cm, 05/16/23 9:17:00 EDT, Height, 128, kg, 05/08/23 14:13:00 EDT, Dry Weight Start Date: 05/17/23 Status: Ordered Medication Dispense Status: Completed Quantity: 1.0 Unit: each Total Allowed Fills: 6 Fills Dispensed: 0 Naproxen = 500 mg, By Mouth, 2 times a day, 0 Refills, Maintenance, 04/07/25 3:29:00 PM EDT, Partial fill upon patient request if the prescription is for a schedule II opioid drug. Start Date: 04/07/25 Status: Ordered Medication Dispense Status: Completed Total Allowed Fills: 1 Fills Dispensed: 0 Nature's Bounty Red Krill Oil 500 mg oral capsule 2 capsule = 1,000 mg, By Mouth, 3 times a day with meals, 0 Refills, Maintenance, 01/17/19 3:57:26 PMEDT Start Date: 01/17/19 Status: Ordered Medication Dispense Status: Completed Total Allowed Fills: 1 Fills Dispensed: 0 omeprazole 20 mg oral enteric coated capsule 1 capsule, By Mouth, Daily, # 90 capsule, 1 Refills, 01/28/22 10:15:00 AM EDT, [facility], 185.9, cm, 01/19/22 16:19:00 EDT, Height, 144.7, kg, 11/10/21 14:39:00 EST, Dry Weight Start Date: 01/28/22 Status: Ordered Medication Dispense Status: Completed Quantity: 90.0 Unit: capsule Total Allowed Fills: 2 Fills Dispensed: 0 organic spirulina - in smoothie organic spirulina - in smoothie, 3.3 grams, Daily, Refills 0, Maintenance, 01/17/19 3:58:02 PM EDT, Compound Start Date: 01/17/19 Status: Ordered Medication Dispense Status: Completed Total Allowed Fills: 1 Fills Dispensed: 0 oxyCODONE 15 mg oral tablet 1 tablet = 15 mg, By Mouth, Every 6 hours, PRN as needed for pain, # 42 tablet, 0 Refills, Maintenance, 08/22/25 11:54:00 AM EST, Tablet, [facility], Partial fill upon patient request if the prescription is for a schedule II opioid drug., 184.7, cm, 08/15/25 8:52:00 EST, Height, 102, kg, 07/28/25 15:13:00 EST, Dry Weight Start Date: 08/22/25 Status: Ordered Medication Dispense Status: Completed Quantity: 42.0 Unit: tablet Total Allowed Fills: 1 Fills Dispensed: 0 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; Neoplasm related pain (acute) (chronic); Pepcid 20 mg oral tablet 1 tablet = 20 mg, By Mouth, Daily at bedtime, # 30 tablet, 0 Refills, Maintenance, 02/04/25 3:44:00 PM EDT, Tablet, [facility], Partial fill upon patient request if the prescription is for a schedule II opioid drug., 184.7, cm, 01/23/25 14:59:00 EDT, Height, 111.3, kg, 01/21/25 13:52:00 EDT,Dry Weight Start Date: 02/04/25 Status: Ordered Medication Dispense Status: Completed Quantity: 30.0 Unit: tablet Total Allowed Fills: 1 Fills Dispensed: 0 Probiotic Formula 1 capsule, By Mouth, Daily, 0 Refills, Maintenance, 01/11/19 8:25:15 AM EDT Start Date: 01/11/19 Status: Ordered Medication Dispense Status: Completed Total Allowed Fills: 1 Fills Dispensed: 0 prochlorperazine 10 mg oral tablet See Instructions, PRN Nausea, 1 tablet By Mouth 3 times a day, # 15 tablet, 1 Refills, Maintenance,11/07/24 8:48:00 AM EST, Tablet, [facility]/pharmacy #2024, Partial fill upon patient request if the prescription is for a schedule II opioid drug., 184.7, cm, 10/29/24 11:38:00 EST, Height, 134.7, kg, 08/13/24 10:16:00 EST, Dry Weight Start Date: 11/07/24 Status: Ordered Medication Dispense Status: Completed Quantity: 15.0 Unit: tablet Total Allowed Fills: 2 Fills Dispensed: 0 Redi Cat 2- pre mixed 450 ml Redi Cat 2- pre mixed 450 ml, See Instructions, # 900 mL, Refills 0, Tot. Refills 0, Maintenance, as instructed for CT scan, 07/29/25 9:50:00 AM EST, Compound, 184.7, cm, 07/28/25 15:13:00 EST, Height, 102, kg, 07/28/25 15:13:00 EST, Dry Weight Start Date: 07/29/25 Status: Ordered Medication Dispense Status: Completed Quantity: 900.0 Unit: mL Total Allowed Fills: 1 Fills Dispensed: 0 Senna-Time 8.6 mg oral tablet 2 tablet, By Mouth, Daily at bedtime, PRN NEEDED FOR CONSTIPATION, # 60 tablet, 2 Refills, Maintenance, 07/25/25 8:39:00 AM EST, [id number], 184.7, cm, 07/18/25 15:52:00 EST, Height, 102.1, kg, 06/23/25 15:03:00 EDT, Dry Weight Start Date: 07/25/25 Status: Ordered Medication Dispense Status: Completed Quantity: 60.0 Unit: tablet Total Allowed Fills: 1 Fills Dispensed: 0 Smoothie Readi-Cat 2 oral suspension See Instructions, TWO PRE- MIXED 450 ML BOTTLES TAKE DIRECTED., # 900 mL, 0 Refills, Soft Stop, 10/31/21 11:17:00 AM EST, [facility], 2, TWO PRE- MIXED 450 ML BOTTLES TAKE DIRECTED., 185.9, cm, 10/27/21 9:11:00 EST, Height, 140, kg, 10/27/21 9:11:00 EST, Dry Weight Start Date: 10/31/21 Status: Ordered Medication Dispense Status: Completed Quantity: 900.0 Unit: mL Total Allowed Fills: 1 Fills Dispensed: 0 Tamsulosin 0.4 mg, By Mouth, Daily, Refills 0, Maintenance, 04/07/25 3:30:00 PM EDT, Partial fill upon patient request if the prescription is for a schedule II opioid drug. Start Date: 04/07/25 Status: Ordered Medication Dispense Status: Completed Total Allowed Fills: 1 Fills Dispensed: 0 Vitamin B12 = 2,500 mcg, Daily, 0 Refills, Maintenance, 01/11/19 8:25:54 AM EDT Start Date: 01/11/19 Status: Ordered Medication Dispense Status: Completed Total Allowed Fills: 1 Fills Dispensed: 0 Vitamin D3 5000 intl units oral capsule 1 capsule = 5,000 International_Units, By Mouth, Daily, 0 Refills, Maintenance, 01/11/19 8:25:05 AM EDT Start Date: 01/11/19 Status: Ordered Medication Dispense Status: Completed Total Allowed Fills: 1 Fills Dispensed: 0 Problem List Condition Confirmation Course Effective Dates Status H ealth Status Informant Constipation in male Confirmed Active Constipation Confirmed Active Diabetes Confirmed Active 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 Social History Social History Type Response Smoking Status Never (less than 100 in lifetime) entered on: 01/10/19 Sex Sex Representation Male (finding) Patient Care team information Care Team Personnel Name: Lulu White RN Position: S [place] RN Member Role: Primary Care Nurse Name: Katarzyna Hernandez RN Position: [facility] [place] RN Member Role: Primary Care Nurse Name: Violeta Wells RN Position: [place] RN Member Role: Primary Care Nurse Name: Franco Qureshi RN Position: [facility] [place] RN Member Role: Primary Care Nurse Name: Sofy Gifford RN Position: S [place] RN Member Role: Primary Care Nurse Name: Marycruz BOWMAN, Brendon Dalton Position: Reference Physician Member Role: PCP Address: [address] [place], [place] [address] Telecom: Care Team Related Persons Name: KIRIT GOULDINE Insurance Providers Guarantor name: [facility] Information #: 1 Payer: [facility] HMO Payer Identifier: NA Member Number: [id number] Group Number: [id number] Subscriber Identifier: NA Relationship to Subscriber: self Coverage Type: Commercial Managed Care - HMO Coverage Verification Date: NA Telecom: NA Address: NA
--- NOTE | 2025-08-29 12:32 | MHC.OFFVIS ---
Vital Signs 08/29/25 12:46 Height 6 ft Weight 224 lb BMI 30.4 Intake Visit Reasons: NewProb-RT hip pain Intake Note: Shyam is a 59 year old male who presents today as an established patient for a new problem visit to evaluate right hip pain. Patient was seen by PCP here at [facility] and was referred to orthopedics. Today patient reports that he had a syncope episode on , states that he passed out in a frog sit causing a knee and ankle fracture. He states recent radiation for his endocrine tumor cancer and this helped his pain, making it a little better. His painis located in the groin area and is sensitive. States increased pain with crossing his leg over the other and swinging his leg out. He feels a pulling sensation in his hip. No numbness or tinging. Per patient MRI performed at [facility] that revealed arthritis and a torn labrum. Allergies No Known Allergies Allergy (Verified 08/29/25 12:50) HPI Comments Details: History of Present Illness The patient is a 60 year old male presenting for evaluation of right hip pain, which has been bothering him for approximately one year. 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 His symptoms are currently aggravated by specific Cross[employer] activities, such as bringing his knees in from a supine position, which he now avoids. He notes that participating in CrossFit has generally been helpful for his hip. The patient has a known history of arthritis confirmed on a prior CT scan and current x-rays, which show osteophytes. He states he had an MRI which also revealed a torn labrum; however, I am unable to locate the MRI. He reports a fall about a year ago on , during which he fractured the inside of his knee and his ankle. 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 He underwent open chest surgery to remove the primary mass, but it later reappeared and was treated with radiation. Metastases to the liver and bone have occurred, for which he has received a liquid radiation transfusion. He reports that since receiving radiation for bone cancer last Monday, his hip pain has improved. He previously had radiation to his face for bone cancer, which has left him with a residual lisp and some saliva issues. 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 - Exercise: He participates in CrossFit with his , which he finds helpful. 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 Social History Housing: House Alcohol intake: never Patient Tobacco Use Status: Never used Tobacco e-Cigarette/Vaping Use: Never Used service: No Current occupational status: employed Current occupation: [employer], right hand dominant Cognitive needs: No Hearing needs: No Vision needs: Yes (reading glasses) Review of Systems Narrative Review of Systems - Musculoskeletal: Reports intermittent right hip pain for about one year, which has improved since changing jobs and with recent radiation therapy. - He reports pain with certain CrossFit movements, such as bringing his knees to his chest from a supine position. - Neurological: Reports a residual lisp and saliva issues after facial radiation. - He denies numbness or tingling down the buttock region. - Constitutional: Denies other complaints. Physical Exam Exam Exam: Physical Exam - Right Hip: Patient demonstrates active flexion and extension. - Passive external rotation elicits mild pain in the groin. - No pain is noted on passive flexion. Vital Signs: BMI result Body Mass Index 30.4 Assessment & Plan Assessment & Plan (1) Osteoarthritis of right hip: Code(s): M16.11 - Unilateral primary osteoarthritis, right hip Category: Medical Plan Plan 1. Right Hip Osteoarthritis The patient's right hip pain is attributed to osteoarthritis, which is visible on his x-rays. Although a hip replacement is a future option if symptoms become functionally limiting, it is not considered necessary at this time as his condition has improved since leaving his previous job and he feels better after recent radiation therapy. A cortisone injection was discussed as a one-time diagnostic and therapeutic option, but the patient preferred to proceed with a more conservative approach. The plan is to focus on strengthening exercises for the hip flexors and gluteal muscles through physical therapy. A referral for physical therapy will be placed for a facility in [place], which is closer to the patient's home. The patient was advised to return for follow-up if his symptoms worsen. Consent Patient was informed and verbally consented to the use of an ambient scribe for clinic note documentation during this visit. Orders: Orders XR hip RT min 2V Today M25.551 - Pain in right hip PT Evaluation and Treatment Today M16.11 - Unilateral primary osteoarthritis, right hip Coding Level of Care Code Est Pt Level 3 ([address]) Add On Problem Visit Only Diagnoses Osteoarthritis of right hip M16.11
[2025-08-29 12:46] VITALS: BMI 30.4
== END 2025-08-29 13:04 | disposition home or self-care (01) ==
LOC: HO.HOS 12:26
PROVIDERS: PCP Physician Assistant; Visit Provider Physician Assistant
DX: M16.11 Unilateral primary osteoarthritis, right hip (principal)
CPT/HCPCS: 99213; G2211

== ENCOUNTER → 2025-08-29 12:28 | Outpatient (BNV) | payer OTHER, SELFPAY | PROVIDERS: Visit Provider Radiology Diagnostic Radiology | DX: C79.51 Secondary malignant neoplasm of bone (principal); M16.11 Unilateral primary osteoarthritis, right hip | CPT/HCPCS: 73502 ==